=== PATIENT | male | born 1935 | race Caucasian/White ===

== ENCOUNTER 2021-12-13 19:21 | Inpatient (IN) | payer MEDICARE, OTHER ==
[~2021-12-13] VITALS: Ht 180 cm; Wt 105.5 kg
--- NOTE | 2021-12-13 19:41 | ED Syncope ---
General Chief Complaint: Dizziness/Syncope Stated Complaint: SYNCOPE History of Present Illness Date Seen by Provider: Dec 13, 2021 Time Seen by Provider: 19:20 Initial Comments Patient to ER by EMS from [place] where he had a witnessed syncopal episode. [place] a little dizzy right before. Has had a little bit of chills for the past few days off and on but no cough shortness of air or increasing, new pain. 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 He is no longer in therapy. He is followed by [facility] for primary care. He is supposed to be seeing a new oncologist on Thursday, 3 days from now. He has had 3 shots of vaccine for COVID-19. Witnesses say he was out for about 7 to 8 minutes. No chest pain. EKG unremarkable. Blood sugar 120s per EMS. No history of use of supplemental oxygen, smoking or COPD. No cough. He had some nausea and emesis so he received 4 mg Zofran IV by EMS on route. Patient wishes to be a full code at this time. Allergies and Home Medications Allergies Coded Allergies: Vwptyay-IIC-LrI Reductase Inhibitor (Verified Allergy, Unknown, 12/13/21) Patient Home Medication List Home Medication List Reviewed: Yes Review of Systems Constitutional: see HPI; No chills, No diaphoresis; dizziness; No fever, No malaise EENTM: No ear discharge, No ear pain Respiratory: No cough, No short of breath, No wheezing Cardiovascular: No chest pain, No palpitations Gastrointestinal: No abdominal pain; nausea; No vomiting Genitourinary: No discharge, No dysuria Musculoskeletal: No back pain, No joint pain All Other Systems Reviewed Negative Unless Noted: Yes Past Jifkixs-Egvynb-Abhiyx Hx Patient Social History Tobacco Use?: No Use of E-Cig and/or Vaping dev: No Substance use?: No Alcohol Use?: No Pt feels they are or have been: No Immunizations Up To Date First/Initial COVID19 Vaccinat: 2020 Second COVID19 Vaccination Alvarez: 2020 Past Medical History Surgery/Hospitalization HX: [place], PROSTATE CANCER, DM , STENT Physical Exam Vital Signs Vital Signs - First Documented 12/13/21 19:21 Temp 39.6 Pulse 83 Resp 24 B/P (MAP) 126/62 (83) Pulse Ox 92 O2 Delivery Nasal Cannula O2 Flow Rate 2.00 Capillary Refill : Height, Weight, BMI Height: '" Weight: lbs. oz. kg; BMI Method: General Appearance: No WD/WN (Chronically ill); Moderate Distress HEENT: PERRL/EOMI, TMs Normal, Normal ENT Inspection; No Pharynx Normal (Dry oral mucosa without erythema or exudate), No Moist Mucous Membranes Neck: Full Range of Motion, Normal Inspection Cardiovascular: Regular Rate, Rhythm, No Edema, Normal Peripheral Pulses Respiratory: Lungs Clear, Normal Breath Sounds, No Accessory Muscle Use; No Crackles; Respiratory Distress (Oxygen saturation 82% on room air, 20 breaths/min.); No Wheezing Gastrointestinal: Normal Bowel Sounds, No Organomegaly, Non Tender, Soft Neurologic/Psychiatric: Alert, Oriented x3, No Motor/Sensory Deficits, Normal Mood/Affect, joint sealer II-XII Norm as Tested Cranial Nerves: Normal Hearing, Normal Speech, Other (Mildly slowed speech on arrival) Skin: Normal Color, Warm/Dry Focused Exam Lactate Level 12/13/21 19:38: Lactic Acid Level 1.42 Lactic Acid Level Laboratory Tests Test 12/13/21 19:38 Lactic Acid Level 1.42 MMOL/L (0.50-2.00) Progress/Results/Core Measures Results/Orders Lab Results Laboratory Tests Test 12/13/21 19:25 12/13/21 19:31 12/13/21 19:38 Range/Units White Blood Count 8.5 4.3-11.0 10^3/uL Red Blood Count 3.41 L 4.30-5.52 10^6/uL Hemoglobin 9.6 L 13.3-17.7 g/dL Hematocrit 29 L 40-54 % Mean Corpuscular Volume 85 80-99 fL Mean Corpuscular Hemoglobin 28 25-34 pg Mean Corpuscular Hemoglobin Concent 33 32-36 g/dL Red Cell Distribution Width 15.0 H 10.0-14.5 % Platelet Count 351 130-400 10^3/uL Mean Platelet Volume 9.5 9.0-12.2 fL Immature Granulocyte % (Auto) 0 % Neutrophils (%) (Auto) 48 42-75 % Lymphocytes (%) (Auto) 43 12-44 % Monocytes (%) (Auto) 7 0-12 % Eosinophils (%) (Auto) 2 0-10 % Basophils (%) (Auto) 0 0-10 % Neutrophils # (Auto) 4.1 1.8-7.8 10^3/uL Lymphocytes # (Auto) 3.6 1.0-4.0 10^3/uL Monocytes # (Auto) 0.6 0.0-1.0 10^3/uL Eosinophils # (Auto) 0.1 0.0-0.3 10^3/uL Basophils # (Auto) 0.0 0.0-0.1 10^3/uL Immature Granulocyte # (Auto) 0.0 0.0-0.1 10^3/uL Prothrombin Time 15.2 H 12.2-14.7 SEC INR Comment 1.2 0.8-1.4 Activated Partial Thromboplast Time 32 24-35 SEC D-Dimer 4.63 H 0.00-0.49 UG/ML Sodium Level 130 L 135-145 MMOL/L Potassium Level 4.6 3.6-5.0 MMOL/L Chloride Level 96 L 98-107 MMOL/L Carbon Dioxide Level 23 21-32 MMOL/L Anion Gap 11 5-14 MMOL/L Blood Urea Nitrogen 11 7-18 MG/DL Creatinine 1.06 0.60-1.30 MG/DL Estimat Glomerular Filtration Rate 69 BUN/Creatinine Ratio 10 Glucose Level 177 H 70-105 MG/DL Calcium Level 10.2 H 8.5-10.1 MG/DL Corrected Calcium 10.5 H 8.5-10.1 MG/DL Total Bilirubin 0.4 0.1-1.0 MG/DL Aspartate Amino Transf (AST/SGOT) 18 5-34 U/L Alanine Aminotransferase (ALT/SGPT) 11 0-55 U/L Alkaline Phosphatase 51 40-136 U/L Troponin I < 0.028 <0.028 NG/ML B-Type Natriuretic Peptide 91.5 <100.0 PG/ML Total Protein 6.8 6.4-8.2 GM/DL Albumin 3.6 3.2-4.5 GM/DL Procalcitonin 0.09 <0.10 NG/ML Influenza Type A (RT-PCR) Not Detected Not Detecte Influenza Type B (RT-PCR) Not Detected Not Detecte SARS-CoV-2 RNA (RT-PCR) Not Detected Not Detecte Blood Gas Puncture Site LEFT RADIAL Blood Gas Patient Temperature 39.2 Arterial Blood pH 7.36 L 7.37-7.43 Arterial Blood Partial Pressure CO2 48 H 35-45 MMHG Arterial Blood Partial Pressure O2 80 79-93 MMHG Arterial Blood HCO3 25 23-27 MMOL/L Arterial Blood Total CO2 26.5 21.0-31.0 MMOL/L Arterial Blood Oxygen Saturation 94 94-100 % Arterial Blood Base Excess 0.9 -2.5-2.5 MMOL/L Jabier Test YES-POS Blood Gas Ventilator Setting NO Blood Gas Inspired Oxygen 4 L Lactic Acid Level 1.42 0.50-2.00 MMOL/L My Orders Orders - ALIYA CISNEROS Cbc With Automated Diff (12/13/21:33) Comprehensive Metabolic Panel (12/13/21:) Blood Culture (12/13/21:) Sputum Culture (12/13/21:) Urinalysis (12/13/21:) Urine Culture (12/13/21:) Protime With Inr (12/13/21:) Partial Thromboplastin Time (12/13/21:) Chest 1 View, Ap/Pa Only (12/13/21:33) Acetaminophen Tablet (Tylenol Tablet) (12/13/21 19:45) Ed Iv/Invasive Line Start (12/13/21:33) Ed Iv/Invasive Line Start (12/13/21:33) Ekg Tracing (12/13/21:33) Troponin I Traverse (12/13/21:33) Vital Signs Adult Sepsis Patie Q15M (12/13/21:33) O2 (12/13/21:33) Remove Rings In Anticipation O (12/13/21:33) Lactic Acid Analyzer (12/13/21:33) Influenza A And B By Pcr (12/13/21:33) Ns Iv 1000 Ml (Sodium Chloride 0.9%) (12/13/21 19:45) Cefepime Injection (Maxipime Injection) (12/13/21 19:45) Vancomycin Injection (Vancomycin Injecti (12/13/21 19:45) Covid 19 Inhouse Test (12/13/21 19:33) Ed Iv/Invasive Line Start (12/13/21:33) Ns Iv 1000 Ml (Sodium Chloride 0.9%) (12/13/21 19:45) Bnp Kin (12/13/21 19:33) Fibrin Degradation Products (12/13/21 19:33) Procalcitonin (Pct) (12/13/21 19:33) Arterial Blood Gas (12/13/21 19:33) Ct Head/Cervical Spine Wo (12/13/21 19:41) Ct Angio Chest W (12/13/21 20:47) Medications Given in ED Current Medications Medications Dose Ordered Sig/Zuleima Route Start Time Stop Time Status Last Admin Dose Admin Acetaminophen 1,000 mg ONCE PRN PO 12/13/21 19:45 12/13/21 19:52 DC 12/13/21 19:49 1,000 MG Cefepime HCl 1000 mg/Sodium Chloride 50 ml @ 100 mls/hr ONCE ONCE IV 12/13/21 19:45 12/13/21 20:14 DC 12/13/21 20:12 100 MLS/HR Vital Signs/I&O 12/13/21 12/13/21 19:21 20:59 Temp 39.6 39.6 Pulse 83 86 Resp 24 20 B/P (MAP) 126/62 (83) 130/72 Pulse Ox 92 92 O2 Delivery Nasal Cannula Nasal Cannula O2 Flow Rate 2.00 2.00 2.00 Progress Progress Note : Time: 19:39 Progress Note Tylenol for his fever. Septic work-up including 2 L by IV for greater than 20 mL/kg by adjusted ideal body weight. We will put him on 4 L by nasal cannula which brought him up to the mid 90s. Lungs sound clear. We will consider pulmonary embolisms, pneumonia, UTI given the history of prostatic cancer. He denies any urinary symptoms right now. Broad-spectrum antibiotics cefepime and vancomycin and will get a COVID and flu swab as it is not immediately apparent the source of infection. We will get a BNP, troponin, EKG to work-up his syncopal episode which is likely related to his illness/infection. ABG. Initial ECG Impression Date: Dec 13, 2021 Initial ECG Impression Time: 19:41 Initial ECG Rate: 86 Initial ECG Rhythm: Normal Sinus Initial ECG Intervals: Normal Initial ECG Impression: Normal Comment Normal sinus rhythm without clinically relevant ST changes. Diagnostic Imaging Diagonstic Imaging: Xray Plain Films/CT/US/NM/MRI: chest Comments [facility], [facility]. [place], [place] NAME: FAMILIA GUEVARA [facility] REC#: [id number] PT STATUS: REG ER : 1935 PHYSICIAN: ALIYA CISNEROS MD ADMIT DATE: 12/13/21/ER Signed Date of Exam:12/13/21 CHEST 1 VIEW, AP/PA ONLY EXAMINATION: Chest 1 view. HISTORY: Shortness of breath. Syncopal episode. COMPARISON: None available. FINDINGS: Volume loss is seen in the left hemithorax. Possible subpulmonic effusion is seen on the left with left basilar opacities. No pneumothorax. The cardiac silhouette is unremarkable. No acute osseous abnormalities. IMPRESSION: Volume loss in the left hemithorax with possible left subpulmonic effusion. Left basilar opacities are visualized. Dictated by: Dictated on workstation # [id number] Dict: 12/13/212031 Trans: 12/13/212036 [facility] [id number] Interpreted by: HUBERT STINSON DO Electronically signed by: HUBERT STINSON DO 12/13/212036 Reviewed: Reviewed by Or Diagonstic Imaging: CT Plain Films/CT/US/NM/MRI: chest Comments [facility], [place], [place] NAME: FAMILIA GUEVARA [facility] REC#: [id number] PT STATUS: REG ER : 1935 PHYSICIAN: ALIYA CISNEROS MD ADMIT DATE: 12/13/21/ER Draft Date of Exam:12/13/21 CT ANGIO CHEST W PROCEDURE: CT angiography of the chest with contrast. TECHNIQUE: Multiple contiguous axial images were obtained through the chest after uneventful bolus administration of intravenous contrast. 3D reconstructed CTA MIP acquisitions were also performed. Auto Exposure Controls were utilized during the CT exam to meet ALARA standards for radiation dose reduction. INDICATION: Shortness of breath. Elevated D-dimer. COMPARISON: Chest radiograph performed earlier the same date. FINDINGS: This helical CT pulmonary angiogram is diagnostic to the segmental level branches of the pulmonary artery and demonstrates no pulmonary emboli. The heart and great vessels are unremarkable. There is no pericardial effusion. There is no axillary, mediastinal or hilar adenopathy. Patchy and consolidative opacities are seen in the left lung base with a small amount of dependent opacities in the right lung base. No pulmonary mass. No central endobronchial obstructing lesions. No pleural effusion or pneumothorax. Scattered sclerotic lesions are seen throughout the thoracic spine and ribs. No acute fracture is seen. Limited views of the upper abdomen are unremarkable. IMPRESSION: 1. No acute pulmonary embolus. 2. Patchy and consolidative opacities in the left lung base with a small amount of dependent opacities in the right lung base. Findings may represent a combination of infection and atelectasis. 3. Diffuse sclerotic lesions throughout the thoracic spine and ribs. Findings can be seen with metastatic prostate cancer. Recommend correlation with patient history. Dictated on workstation # [id number] Dict: 12/13/212220 Trans: 12/13/212225 [facility] [id number] Interpreted by: HUBERT STINSON DO Electronically signed by: Reviewed: Reviewed by Or Diagonstic Imaging: CT Plain Films/CT/US/NM/MRI: c-spine, head Comments [facility] [place] [place] NAME: FAMILIA GUEVARA [facility] REC#: [id number] PT STATUS: REG ER : 1935 PHYSICIAN: ALIYA CISNEROS MD ADMIT DATE: 12/13/21/ER Signed Date of Exam:12/13/21 CT HEAD/CERVICAL SPINE WO PROCEDURE: CT head and CT cervical spine without contrast. TECHNIQUE: Multiple contiguous axial images were obtained through the brain and cervical spine without the use of intravenous contrast. Sagittal and coronal reformations through the cervical spine were then performed. Auto Exposure Controls were utilized during the CT exam to meet ALARA standards for radiation dose reduction. INDICATION: Syncopal episode. Weakness. Head and neck pain. COMPARISON: None. FINDINGS: CT HEAD: No large acute territorial ischemia, mass, or hemorrhage. No midline shift or mass effect. The ventricles, cortical sulci and basilar cisterns are patent and unremarkable. The calvarium is intact. The visualized paranasal sinuses are clear. CT CERVICAL SPINE: No acute fracture or dislocation is seen in the cervical spine. Diffuse sclerosis is seen throughout the cervical spine. There is suggestion of a focal osseous lesion at the anterior aspect of the T7 level. The craniocervical junction is well maintained. Moderate to severe degenerative changes are seen in the cervical spine with disc osteophyte complexes and uncovertebral arthropathy. Soft tissues of the neck are unremarkable. IMPRESSION: 1. No hemorrhage or focal intra-axial mass. No CT evidence of large acute territorial ischemia. 2. No acute fracture or dislocation in the cervical spine. 3. Diffuse sclerotic appearance of the cervical spine with possible focal osseous lesion at the C7 level. Recommend correlation with patient history and, if indicated, MRI of the cervical spine with and without contrast to further evaluate. Dictated by: Dictated on workstation # [id number] Dict: 12/13/212037 Trans: 12/13/212053 [facility] [id number] Interpreted by: HUBERT STINSON DO Electronically signed by: HUBERT STINSON DO 12/13/212053 Reviewed: Reviewed by Me Departure Communication (Admissions) Time/Spoke to Admitting Phy: 22:19 Discussed the case with Dr. Fajardo agrees with placement on the floor on telemetry. Impression Primary Impression: Syncope Qualified Codes: R55 - Syncope and collapse Additional Impressions: Pneumonia Qualified Codes: J18.9 - Pneumonia, unspecified organism Acute respiratory failure with hypoxemia Disposition: ADMITTED INPATIENT Condition: Stable Admissions Decision to Admit Reason: Admit from ER (General) Decision to Admit/Date: Dec 13, 2021 Time/Decision to Admit Time: 22:09 ALIYA CISNEROS Dec 13, 2021 19:41
[2021-12-13 19:42] LABS: ABG BASE EXCESS 0.9 MMOL/L (-2.5-2.5); ABG OXYGEN SATURATION 94 % (94-100); ABG PCO2 48 MMHG (35-45); ABG PH 7.36 (7.37-7.43); ABG PO2 80 MMHG (79-93); ABG TCO2 26.5 MMOL/L (21.0-31.0)
[2021-12-13 19:43] LABS: ALLENS TEST YES-POS; INSPIRED O2 4 L; VENTILATOR NO
[2021-12-13 19:44] LABS: PATIENT TEMP 39.2
[2021-12-13 19:44] LABS: BASOPHILS % (AUTO) 0 % (0-10); EOSINOPHILS # (AUTO) 0.1 10^3/uL (0.0-0.3); EOSINOPHILS % (AUTO) 2 % (0-10); HEMATOCRIT 29 % (40-54); HEMOGLOBIN 9.6 g/dL (13.3-17.7); LYMPHOCYTES # (AUTO) 3.6 10^3/uL (1.0-4.0); LYMPHOCYTES % (AUTO) 43 % (12-44); MEAN CORPUSCULAR HEMOGLOBIN 28 pg (25-34); MEAN CORPUSCULAR HGB CONC 33 g/dL (32-36); MEAN CORPUSCULAR VOLUME 85 fL (80-99); MEAN PLATELET VOLUME 9.5 fL (9.0-12.2); MONOCYTES # (AUTO) 0.6 10^3/uL (0.0-1.0); MONOCYTES % (AUTO) 7 % (0-12); NEUTROPHILS # (AUTO) 4.1 10^3/uL (1.8-7.8); NEUTROPHILS % (AUTO) 48 % (42-75); PLATELET COUNT 351 10^3/uL (130-400); WHITE BLOOD COUNT 8.5 10^3/uL (4.3-11.0)
[2021-12-13] MEDS ORDERED: ACETAMINOPHEN 500 MG TAB (TYLENOL) PO PRN (19:45)
[2021-12-13] MEDS ORDERED: NS IV 1000 ML 1,000 ML IV SCH ×2 (19:45)
[2021-12-13] MEDS ORDERED: CEFEPIME INJECTION 1,000 MG in NS (IVPB) 50 ML IV ONE (19:45)
[2021-12-13] MEDS: VANCOMYCIN INJECTION 1,000 MG in NS (IVPB) 250 ML IV SCH ×2 (19:52→22:20)
[2021-12-13 19:56] LABS: ALANINE AMINOTRANSFERASE 11 U/L (0-55); ALBUMIN 3.6 GM/DL (3.2-4.5); ALKALINE PHOSPHATASE 51 U/L (40-136); BILIRUBIN,TOTAL 0.4 MG/DL (0.1-1.0); BUN/CREATININE RATIO 10; CALCIUM 10.2 MG/DL (8.5-10.1); CARBON DIOXIDE 23 MMOL/L (21-32); CHLORIDE 96 MMOL/L (98-107); CREATININE SERUM 1.06 MG/DL (0.60-1.30); GFR ESTIMATED 69; GLUCOSE 177 MG/DL (70-105); POTASSIUM 4.6 MMOL/L (3.6-5.0); SODIUM 130 MMOL/L (135-145); TOTAL PROTEIN 6.8 GM/DL (6.4-8.2)
--- NOTE | 2021-12-13 20:36 | Diagnostic Imaging Report ---
EXAMINATION: Chest 1 view. HISTORY: Shortness of breath. Syncopal episode. COMPARISON: None available. FINDINGS: Volume loss is seen in the left hemithorax. Possible subpulmonic effusion is seen on the left with left basilar opacities. No pneumothorax. The cardiac silhouette is unremarkable. No acute osseous abnormalities. IMPRESSION: Volume loss in the left hemithorax with possible left subpulmonic effusion. Left basilar opacities are visualized. Dictated by: Dictated on workstation # [id number]
[2021-12-13 20:43] LABS: FIBRIN DEGRADATION PRODUCTS 4.63 UG/ML (0.00-0.49); INR 1.2 (0.8-1.4); PROTHROMBIN TIME PATIENT 15.2 SEC (12.2-14.7)
--- NOTE | 2021-12-13 20:48 | Diagnostic Imaging Report ---
PROCEDURE: CT head and CT cervical spine without contrast. TECHNIQUE: Multiple contiguous axial images were obtained through the brain and cervical spine without the use of intravenous contrast. Sagittal and coronal reformations through the cervical spine were then performed. Auto Exposure Controls were utilized during the CT exam to meet ALARA standards for radiation dose reduction. INDICATION: Syncopal episode. Weakness. Head and neck pain. COMPARISON: None. FINDINGS: CT HEAD: No large acute territorial ischemia, mass, or hemorrhage. No midline shift or mass effect. The ventricles, cortical sulci and basilar cisterns are patent and unremarkable. The calvarium is intact. The visualized paranasal sinuses are clear. CT CERVICAL SPINE: No acute fracture or dislocation is seen in the cervical spine. Diffuse sclerosis is seen throughout the cervical spine. There is suggestion of a focal osseous lesion at the anterior aspect of the T7 level. The craniocervical junction is well maintained. Moderate to severe degenerative changes are seen in the cervical spine with disc osteophyte complexes and uncovertebral arthropathy. Soft tissues of the neck are unremarkable. IMPRESSION: 1. No hemorrhage or focal intra-axial mass. No CT evidence of large acute territorial ischemia. 2. No acute fracture or dislocation in the cervical spine. 3. Diffuse sclerotic appearance of the cervical spine with possible focal osseous lesion at the C7 level. Recommend correlation with patient history and, if indicated, MRI of the cervical spine with and without contrast to further evaluate. Dictated by: Dictated on workstation # [id number]
[2021-12-13] MEDS ORDERED: HOLD METFORMIN - RECEIVED CONTRAST 20 ML VIAL IV SCH (22:00)
[2021-12-13] MEDS ORDERED: IOHEXOL 350 MG/ML 100 ML (OMNIPAQUE 350) VIAL IV ONE (22:00)
[2021-12-13] MEDS ORDERED: NS 100 ML (IVPB) BAG IV ONE (22:00)
--- NOTE | 2021-12-13 22:26 | Diagnostic Imaging Report ---
PROCEDURE: CT angiography of the chest with contrast. TECHNIQUE: Multiple contiguous axial images were obtained through the chest after uneventful bolus administration of intravenous contrast. 3D reconstructed CTA MIP acquisitions were also performed. Auto Exposure Controls were utilized during the CT exam to meet ALARA standards for radiation dose reduction. INDICATION: Shortness of breath. Elevated D-dimer. COMPARISON: Chest radiograph performed earlier the same date. FINDINGS: This helical CT pulmonary angiogram is diagnostic to the segmental level branches of the pulmonary artery and demonstrates no pulmonary emboli. The heart and great vessels are unremarkable. There is no pericardial effusion. There is no axillary, mediastinal or hilar adenopathy. Patchy and consolidative opacities are seen in the left lung base with a small amount of dependent opacities in the right lung base. No pulmonary mass. No central endobronchial obstructing lesions. No pleural effusion or pneumothorax. Scattered sclerotic lesions are seen throughout the thoracic spine and ribs. No acute fracture is seen. Limited views of the upper abdomen are unremarkable. IMPRESSION: 1. No acute pulmonary embolus. 2. Patchy and consolidative opacities in the left lung base with a small amount of dependent opacities in the right lung base. Findings may represent a combination of infection and atelectasis. 3. Diffuse sclerotic lesions throughout the thoracic spine and ribs. Findings can be seen with metastatic prostate cancer. Recommend correlation with patient history. Dictated by: Dictated on workstation # [id number]
[2021-12-13 22:55] LABS: BILIRUBIN,URINE NEGATIVE (NEGATIVE); CLARITY,URINE CLEAR; COLOR,URINE YELLOW; GLUCOSE, URINE (UA) NEGATIVE (NEGATIVE); KETONES,URINE NEGATIVE (NEGATIVE); LEUKOCYTE ESTERASE ,URINE NEGATIVE (NEGATIVE); NITRITE,URINE NEGATIVE (NEGATIVE); PROTEIN,URINE NEGATIVE (NEGATIVE)
[2021-12-13 23:04] LABS: BACTERIA,URINE NEGATIVE /HPF; WBC,URINE 0-2 /HPF
[2021-12-13 23:20] VITALS: BP 137/73
[2021-12-13] MEDS ORDERED: LACTATED RINGERS 1,000 ML IV ONE (23:30)
[2021-12-13] MEDS: LACTATED RINGERS 1,000 ML IV SCH (23:45)
[2021-12-14] VITALS (7 sets, daily range): BP systolic 104–138; BP diastolic 59–70
[2021-12-14] MEDS ORDERED: ACETAMINOPHEN 650 MG SUPP (TYLENOL) PR PRN (00:30)
[2021-12-14] MEDS ORDERED: ONDANSETRON 4 MG/2 ML (SDV) Z0FRAN IV PRN (00:30)
[2021-12-14] MEDS: cefTRIAXone 1 GM/50 ML (PRE-MIX) IV SCH ×2 (00:41→23:51)
[2021-12-14] MEDS: AZITHROMYCIN 500 MG/NS 250 ML IVPB IV SCH ×2 (01:42)
[2021-12-14 05:46] LABS: BASOPHILS % (AUTO) 0 % (0-10); EOSINOPHILS # (AUTO) 0.1 10^3/uL (0.0-0.3); EOSINOPHILS % (AUTO) 1 % (0-10); HEMATOCRIT 27 % (40-54); HEMOGLOBIN 8.5 g/dL (13.3-17.7); LYMPHOCYTES # (AUTO) 2.1 10^3/uL (1.0-4.0); LYMPHOCYTES % (AUTO) 38 % (12-44); MEAN CORPUSCULAR HEMOGLOBIN 28 pg (25-34); MEAN CORPUSCULAR HGB CONC 32 g/dL (32-36); MEAN CORPUSCULAR VOLUME 88 fL (80-99); MEAN PLATELET VOLUME 9.3 fL (9.0-12.2); MONOCYTES # (AUTO) 0.6 10^3/uL (0.0-1.0); MONOCYTES % (AUTO) 11 % (0-12); NEUTROPHILS # (AUTO) 2.7 10^3/uL (1.8-7.8); NEUTROPHILS % (AUTO) 50 % (42-75); PLATELET COUNT 250 10^3/uL (130-400); WHITE BLOOD COUNT 5.5 10^3/uL (4.3-11.0)
[2021-12-14 06:03] LABS: CALCIUM 9.1 MG/DL (8.5-10.1); CREATININE SERUM 0.85 MG/DL (0.60-1.30); POTASSIUM 4.5 MMOL/L (3.6-5.0)
[2021-12-14] MEDS: LACTATED RINGERS 1,000 ML IV SCH ×2 (07:27→09:09)
--- NOTE | 2021-12-14 07:55 | Diagnostic Imaging Report ---
INDICATION: Pneumonia. Comparison is made with prior examination of 12/13/2021. FINDINGS: There is cardiomegaly. There is some left basilar atelectasis and/or pneumonitis and small left pleural effusion. Right lung is clear. There is no pneumothorax. The mediastinum is unremarkable. IMPRESSION: Left basilar atelectasis and/or pneumonitis and small left pleural effusion. Dictated by: Dictated on workstation # [id number]
[2021-12-14] MEDS ORDERED: MESA1.2T3 PO (08:51)
[2021-12-14 08:56] LABS: ABG BASE EXCESS -0.5 MMOL/L (-2.5-2.5); ABG OXYGEN SATURATION 97 % (94-100); ABG PCO2 43 MMHG (35-45); ABG PH 7.36 (7.37-7.43); ABG PO2 82 MMHG (79-93); ABG TCO2 25.7 MMOL/L (21.0-31.0)
[2021-12-14 08:57] LABS: ALLENS TEST YES-POS; PATIENT TEMP 36.2; VENTILATOR NO
[2021-12-14 09:00] LABS: INSPIRED O2 4 L
[2021-12-14] MEDS ORDERED: CULTURELLE (09:04)
[2021-12-14] MEDS ORDERED: TMSL.4C PO (09:05)
[2021-12-14] MEDS ORDERED: METH1TAB59 PO (09:08)
[2021-12-14] MEDS ORDERED: ATEN25TA PO (09:12)
[2021-12-14] MEDS ORDERED: MULT-1136 PO (09:13)
[2021-12-14] MEDS ORDERED: UBID100C17 PO (09:14)
[2021-12-14] MEDS ORDERED: OMEG100032 PO (09:15)
[2021-12-14] MEDS ORDERED: ASPI-1238 PO (09:16)
[2021-12-14] MEDS ORDERED: APAL60TA PO (09:17)
[2021-12-14] MEDS ORDERED: INSU100V37 SQ (09:17)
[2021-12-14] MEDS ORDERED: SLF500T PO (09:18)
[2021-12-14] MEDS ORDERED: citracal PO (09:20)
--- NOTE | 2021-12-14 11:32 | Physical Therapy Evaluation ---
PT Evaluation-General Medical Diagnosis Admission Date Dec 13, 2021 at 21:30 Medical Diagnosis: pneumonia/acute respiratory failure with hypoxia Onset Date: Dec 13, 2021 Therapy Diagnosis Therapy Diagnosis: generalized weakness/debility Precautions Precautions/Isolations: Standard Precautions Referral Physician: Tana Reason for Referral: Evaluation/Treatment Medical History Pertinent Medical History: DM, [place], Prostate CA History of Falls (past yr): Yes Prior Surgery (last 100 days): No Current History EMS from a football game secondary to syncopal episode Reviewed History: Yes Social History Home: Single Level Current Living Status: Spouse Entry Into Home: Stairs With Railing PT Steps Into Home: 4 Prior Prior Level of Function SCALE: Activities may be completed with or without assistive devices. 9-Ibhadljmde-ritpdlm completes the activity by him/herself with no assistance from a helper. 5-Set-up or Clean-up Assistance-helper sets up or cleans up; patient completes activity. [place] assists only prior to or following the activity. 4-Supervision or Touching Assistance-helper provides verbal cues and/or touching/steadying and/or contact guard assistance as patient completes activity. Assistance may be provided throughout the activity or intermittently. 3-Partial/Moderate Assistance-helper does LESS THAN HALF the effort. [place] lifts, holds or supports trunk or limbs, but provides less than half the effort. 2-Substantial/Maximal Assistance-helper does MORE THAN HALF the effort. [place] lifts or holds trunk or limbs and provides more than half the effort. 0-Hrohazgco-agnbpb does ALL the effort. Patient does none of the effort to complete the activity. Or, the assistance of 2 or more helpers is required for the patient to complete the activity. If activity was not attempted, code reason: 7-Patient Refused. 9-Not Applicable-not attempted and the patient did not perform the activity before the current illness, exacerbation or injury. 10-Not Attempted due to Environmental Limitations-(lack of equipment, weather restraints, etc.). 88-Not Attempted due to Medical Conditions or Safety Concerns. Bed Mobility: 6 Transfers (B,C,W/C): 6 Gait: 6 Stairs: 6 Indoor Mobility (Ambulation): Independent Stairs: Independent Prior Devices Use: Walker PT Evaluation-Current Subjective Patient agrees to PT. Objective Patient Orientation: Normal For Age Attachments: Oxygen, IV ROM/Strength ROM Lower Extremities bilateral LE WFL Strength Lower Extremities 3+/5 grossly bilateral LE all planes Integumentary/Posture Bowel Incontinence: Yes Bladder Incontinence: Yes Posture slightly kyphotic Neuromuscular (Tone, Coordination, Reflexes) grossly intact Sensory Vision: Functional Hearing: Functional Transfers Lying to Sitting/Side of Bed(Q: 4 Sit to Stand (QC): 4 Chair/Qol-rx-Fxdpu Xfer(QC): 4 Toilet Transfer (QC): 4 Gait Mode of Locomotion: Walk Anticipated Mode of Locomotion: Walk Walk 10 feet (QC): 4 Walk 50 ft with 2 Turns(QC): 4 Distance: 50' Gait Assistive Device: FWW Comments/Gait Description steady gait sequence with slight deviation with self correct Balance Sitting Static: Normal Sitting Dynamic: Normal Standing Static: Fair Standing Dynamic: Fair Assessment/Needs 86 y.o. male, will benefit from skilled PT to address functional strength and mobility to improve current LOF to safely return to home with spouse at maximum LOF. Rehab Potential: Fair PT Usp Goals Usp Goals PT Cook Specialty Goals Time Frame: Dec 21, 2021 Roll Left & Right (QC): 6 Sit to Lying (QC): 6 Lying-Sitting on Side/Bed(QC): 6 Sit to Stand (QC): 6 Chair/Qyk-om-Lrnjx Xfer(QC): 6 Toilet Transfer (QC): 6 Walk 10 feet (QC): 6 Walk 50ft with 2 Turns (QC): 6 Walk 150 ft (QC): 6 1 Step (curb) (QC): 6 4 Steps (QC): 6 PT Plan Problem List Problem List: Activity Tolerance, Functional Strength, Safety, Balance, Gait, Transfer, Bed Mobility Treatment/Plan Treatment Plan: Continue Plan of Care Treatment Plan: Bed Mobility, Education, Functional Activity [place], Functional Strength, Gait, Safety, Therapeutic Exercise, Transfers Treatment Duration: Dec 21, 2021 Frequency: 6 times per week Estimated Hrs Per Day: .25 hour per day Patient and/or Family Agrees t: Yes Time/GCodes Time In: 1110 Time Out: 1124 Total Billed Treatment Time: 14 Total Billed Treatment 1 visit EVModC 14 min ENRICO BARRIOS PT Dec 14, 2021 11:32
--- NOTE | 2021-12-14 11:33 | History & Physical-Hospitalist ---
History of Present Illness HPI/Chief Complaint Patient is an 86-year-old male with past medical history of insulin- dependent diabetes type 2, metastatic prostate cancer, hypertension who presented to the emergency department due to syncope. He was at a local high school football game and suffered a syncopal episode. He states that he was slightly dizzy beforehand and then lost consciousness. He denies any nausea, tunnel vision, palpitations, seizure-like activity. Family reports he was down for roughly 7 minutes. He was brought to the emergency department via EMS. He was febrile on arrival and was found to have pneumonia. He was mildly hypoxic as well and is normally not on oxygen. He was admitted for IV antibiotics and further work-up of syncope. Date Seen 12/14/21 Time Seen by a Provider: 11:00 Attending Physician PCP Admitting Physician: Elin Fajardo MD Attending Physician: Elin Fajardo MD Referring Physician Date of Admission Dec 13, 2021 at 21:30 Home Medications & Allergies Home Medications Reviewed patient Home Medication Reconciliation performed by pharmacy medication reconciliations heavy equipment service technician and/or nursing. Patients Allergies have been reviewed. Allergies Allergies Coded Allergies Nfuweul-SYH-RpO Reductase Inhibitor (Verified Allergy, Unknown, 12/13/21) Past Hljdpbz-Psapog-Kayoyf Hx Patient Social History Tobacco Use?: No Use of E-Cig and/or Vaping dev: No Substance use?: No Alcohol Use?: No Pt feels they are or have been: No Immunizations Up To Date First/Initial COVID19 Vaccinat: 2020 Second COVID19 Vaccination Alvarez: 2020 Tetanus Booster (TDap): Unknown Current Status Advance Directives: No Communicates: Verbally Primary Language: Welsh Preferred Spoken Language: Welsh Is interpretation needed?: No Implanted or Applied Medical D: None Review of Systems Constitutional: No chills; fever EENTM: no symptoms reported Respiratory: see HPI, short of breath Cardiovascular: No chest pain; edema; No palpitations; syncope Gastrointestinal: no symptoms reported Genitourinary: no symptoms reported Musculoskeletal: muscle weakness Skin: no symptoms reported Psychiatric/Neurological: No Symptoms Reported Physical Exam Physical Exam Vital Signs Vital Signs - First Documented 12/13/21 19:21 Temp 39.6 Pulse 83 Resp 24 B/P (MAP) 126/62 (83) Pulse Ox 92 O2 Delivery Nasal Cannula O2 Flow Rate 2.00 Capillary Refill : Height, Weight, BMI Height: '" Weight: lbs. oz. kg; 32.56 BMI Method: General Appearance: No Apparent Distress, WD/WN, Chronically ill HEENT: PERRL/EOMI, Moist Mucous Membranes; No Scleral Icterus (L), No Scleral Icterus (R) Neck: Normal Inspection, Supple Respiratory: Lungs Clear, No Accessory Muscle Use, No Respiratory Distress Cardiovascular: Regular Rate, Rhythm, No Murmur Gastrointestinal: Normal Bowel Sounds, Non Tender, Soft Extremity: Normal Capillary Refill, No Calf Tenderness, Swelling (chronic edmea of lower extremities, mild, non pitting) Neurologic/Psychiatric: Alert, Oriented x3, Normal Mood/Affect Skin: Normal Color, Warm/Dry Results Results/Procedures Labs Laboratory Tests 12/13/21 19:25 12/14/21 05:36 12/15/21 05:27 Patient resulted labs reviewed. Imaging: Reviewed Imaging Report [facility] [place] [place] NAME: FAMILIA GUEVARA [facility] REC#: [id number] PT STATUS: REG ER : 1935 PHYSICIAN: ALIYA CISNEROS MD ADMIT DATE: 12/13/21/ER Signed Date of Exam:12/13/21 CHEST 1 VIEW, AP/PA ONLY EXAMINATION: Chest 1 view. HISTORY: Shortness of breath. Syncopal episode. COMPARISON: None available. FINDINGS: Volume loss is seen in the left hemithorax. Possible subpulmonic effusion is seen on the left with left basilar opacities. No pneumothorax. The cardiac silhouette is unremarkable. No acute osseous abnormalities. IMPRESSION: Volume loss in the left hemithorax with possible left subpulmonic effusion. Left basilar opacities are visualized. Dictated by: Dictated on workstation # [id number] Dict: 12/13/212031 Trans: 12/13/212036 [facility] [id number] Interpreted by: HUBERT STINSON DO Electronically signed by: HUBERT STINSON DO 12/13/212036 [facility] [place] [place] NAME: FAMILIA GUEVARA [facility] REC#: [id number] PT STATUS: REG ER : 1935 PHYSICIAN: ALIYA CISNEROS MD ADMIT DATE: 12/13/21/ER Signed Date of Exam:12/13/21 CT HEAD/CERVICAL SPINE WO PROCEDURE: CT head and CT cervical spine without contrast. TECHNIQUE: Multiple contiguous axial images were obtained through the brain and cervical spine without the use of intravenous contrast. Sagittal and coronal reformations through the cervical spine were then performed. Auto Exposure Controls were utilized during the CT exam to meet ALARA standards for radiation dose reduction. INDICATION: Syncopal episode. Weakness. Head and neck pain. COMPARISON: None. FINDINGS: CT HEAD: No large acute territorial ischemia, mass, or hemorrhage. No midline shift or mass effect. The ventricles, cortical sulci and basilar cisterns are patent and unremarkable. The calvarium is intact. The visualized paranasal sinuses are clear. CT CERVICAL SPINE: No acute fracture or dislocation is seen in the cervical spine. Diffuse sclerosis is seen throughout the cervical spine. There is suggestion of a focal osseous lesion at the anterior aspect of the T7 level. The craniocervical junction is well maintained. Moderate to severe degenerative changes are seen in the cervical spine with disc osteophyte complexes and uncovertebral arthropathy. Soft tissues of the neck are unremarkable. IMPRESSION: 1. No hemorrhage or focal intra-axial mass. No CT evidence of large acute territorial ischemia. 2. No acute fracture or dislocation in the cervical spine. 3. Diffuse sclerotic appearance of the cervical spine with possible focal osseous lesion at the C7 level. Recommend correlation with patient history and, if indicated, MRI of the cervical spine with and without contrast to further evaluate. Dictated by: Dictated on workstation # [id number] Dict: 12/13/212037 Trans: 12/13/212053 [facility] [id number] Interpreted by: HUBERT STINSON DO Electronically signed by: HUBERT STINSON DO 12/13/212053 [facility] [place], [place] NAME: FAMILIA GUEVARA [facility] REC#: [id number] PT STATUS: ADM IN : 1935 PHYSICIAN: ALIYA CISNEROS MD ADMIT DATE: 12/13/21 Signed Date of Exam:12/13/21 CT ANGIO CHEST W PROCEDURE: CT angiography of the chest with contrast. TECHNIQUE: Multiple contiguous axial images were obtained through the chest after uneventful bolus administration of intravenous contrast. 3D reconstructed CTA MIP acquisitions were also performed. Auto Exposure Controls were utilized during the CT exam to meet ALARA standards for radiation dose reduction. INDICATION: Shortness of breath. Elevated D-dimer. COMPARISON: Chest radiograph performed earlier the same date. FINDINGS: This helical CT pulmonary angiogram is diagnostic to the segmental level branches of the pulmonary artery and demonstrates no pulmonary emboli. The heart and great vessels are unremarkable. There is no pericardial effusion. There is no axillary, mediastinal or hilar adenopathy. Patchy and consolidative opacities are seen in the left lung base with a small amount of dependent opacities in the right lung base. No pulmonary mass. No central endobronchial obstructing lesions. No pleural effusion or pneumothorax. Scattered sclerotic lesions are seen throughout the thoracic spine and ribs. No acute fracture is seen. Limited views of the upper abdomen are unremarkable. IMPRESSION: 1. No acute pulmonary embolus. 2. Patchy and consolidative opacities in the left lung base with a small amount of dependent opacities in the right lung base. Findings may represent a combination of infection and atelectasis. 3. Diffuse sclerotic lesions throughout the thoracic spine and ribs. Findings can be seen with metastatic prostate cancer. Recommend correlation with patient history. Dictated by: Dictated on workstation # [id number] Dict: 12/13/212220 Trans: 12/13/212307 [facility] [id number] Interpreted by: HUBERT STINSON DO Electronically signed by: HUBERT STINSON DO 12/13/212307 Assessment/Plan Admission Diagnosis Sepsis due to pneumonia Admission Status: Inpatient Order (span 2 midnights) Reason for Inpatient Admission: see below Assessment and Plan Sepsis due to pneumonia Acute hypoxic respiratory failure Continue on IV abx Await cultures Wean oxygen as able MAt protocol Syncope New onset atrial fibrillation Called this AM and telemetry reveals a-fib Patient denies history of this Cardiology consulted, appreciate recs Likely cause of syncope Continue telemetry Metastatic prostate cancer Age related debility Frequent falls Follows with oncology Has appt with new oncologist on 12/16 IDDMII SSI Fasting blood sugar 97 so hold home insulin DVT ppx: ELIN Platt MD Dec 14, 2021 11:33
[2021-12-14 11:48] LABS: TRIGLYCERIDES 60 MG/DL (<150); VLDL CHOLESTEROL 12 MG/DL (5-40)
[2021-12-14 11:53] LABS: CHOLESTEROL 140 MG/DL (< 200)
[2021-12-14 11:54] LABS: HDL CHOLESTEROL 30 MG/DL (40-60); MAGNESIUM 1.5 MG/DL (1.6-2.4)
--- NOTE | 2021-12-14 11:54 | Consultation-Cardiology ---
HPI-Cardiology Cardiology Consultation: Date of Consultation 12/14/21 Date of Admission 12/13/21 Attending Physician Admitting Physician Admitting Physician: Saray Fajardo MD Attending Physician: Saray Fajardo MD Consulting Physician KEM FERNÁNDEZ JR, MD HPI: Time Seen by a Provider: 11:49 Chief Complaint: REASON FOR CONSULTATION: Atrial arrhythmia and syncope. I had the pleasure of seeing Arnol on the medical/surgical unit at [facility] in [place], [place] today. He has a history of coronary artery disease with myocardial infarction in 2002 treated with stents at [facility] in [place], [place] and hyperlipidemia. He also has metastatic prostate carcinoma which has been treated for about the past 6 years. Over the past few weeks he has had several falls at home. 1 time he was in his garden working and when he stood up, he lost his balance and fell down. Another day last week he was going from 1 room to another and there is a short step in between the rooms and he again lost his balance and fell down. Last evening he was at a local high school football game. He was on ground level because he cannot climb up into the bleachers using his walker. He had been sitting on his walker and stood up to stretch. The next thing he can remember, he was laying on the ground and there were bystanders standing above him. Someone had called 911 and the rescue squad came and brought him to the emergency room for further evaluation. He was diagn osed with pneumonia and started on intravenous antibiotics and admitted to the floor. Overnight, his telemetry showed some atrial arrhythmias concerning for atrial fibrillation and a cardiology consultation was requested. He denies any previous history of atrial fibrillation. He has been taking atenolol for a number of years even before his myocardial infarction. His previous doctor told him it was good to take atenolol to help protect someone from dying of a heart attack. He denies any history of hypertension. Up until yesterday's event, he denies any previous history of syncope. He does have chronic dyspnea which he believes has gotten worse since his diagnosis of prostate carcinoma. He has trouble sleeping at night but mainly due to bone pain. He denies paroxysmal nocturnal dyspnea, orthopnea, palpitations, or peripheral edema. Yesterday he did feel slightly feverish and had a slight cough. He also reports loss of appetite over the past few days to weeks. He has been vaccinated and boosted for COVID. Because of the atrial arrhythmia and syncope, a cardiology consultation was requested. Certain portions of this document may have been dictated utilizing voice recognition technology. Inherent to this technology, typographical and grammatical errors may exist. As much as I am diligent to identify and correct these mistakes, some errors may remain in the document. Review of Systems-Cardiology Review of Systems Other comments Review of 10 organ systems is as per the history of present illness, otherwise negative. All Other Systems Reviewed Negative Unless Noted: Yes PNG-Eihons-Itczyn Hx Patient Social History Marrital Status: Smoking Status: Never a Smoker Have you traveled recently?: No Alcohol Use?: No Pt feels they are or have been: No Past Medical History PMH As described under Assessment. Family Medical History Family Medical History: 2 of his brothers in their 50s of a myocardial infarction. Allergies and Home Medications Allergies Coded Allergies: Mwliubt-HCQ-TlY Reductase Inhibitor (Verified Allergy, Unknown, 12/13/21) Patient Home Medication List Home Medication List Reviewed: Yes Apalutamide (Erleada) 60 Mg Tablet, 240 MG PO DAILY, (Reported) Entered as Reported by: Evelyn Colon on 12/14/21916 Last Action: Reviewed Aspirin (Aspirin EC) 81 Mg Tablet., 81 MG PO HS, (Reported) Entered as Reported by: Evelyn Colon on 12/14/2116 Last Action: Reviewed Atenolol (Atenolol) 25 Mg Tablet, 25 MG PO DAILY, (Reported) Entered as Reported by: Evelyn Colon on 12/14/21911 Last Action: Reviewed Insulin Degludec (Tresiba) 100 Unit/Ml Vial, 28 UNIT SQ HS, (Reported) Entered as Reported by: Evelyn Colon on 12/14/21916 Last Action: Reviewed Mesalamine (Mesalamine) 1.2 Gram Tablet., 1.2 GM PO DAILY, (Reported) Entered as Reported by: Evelyn Colon on 12/14/21 0851 Last Action: Reviewed Methyl-B12/l-Mefolate/B6 Phos (Foltanx Tablet) 2 Mg-3 Mg-35 Mg Tablet, 1 TAB PO DAILY, (Reported) Entered as Reported by: Evelyn Colon on 12/14/21907 Last Action: Reviewed Multivitamin (Multivitamin) 1 Each Tablet, 1 EACH PO DAILY, (Reported) Entered as Reported by: Evelyn Colon on 12/14/21912 Last Action: Reviewed [place]-3/Dha/Epa/Fish Oil (Fish Oil 1,000 mg Softgel) 1,000 Mg (120 Mg-180 Mg) Capsule, 3,000 MG PO BID, (Reported) Entered as Reported by: Evelyn Colon on 12/14/21914 Last Action: Reviewed Sulfasalazine (Sulfasalazine) 500 Mg Tablet, 500 MG PO DAILY, (Reported) Entered as Reported by: Evelyn Colon on 12/14/21917 Last Action: Reviewed Tamsulosin HCl (Flomax) 0.4 Mg Cap, 0.4 MG PO HS, (Reported) Entered as Reported by: Evelyn Colon on 12/14/21904 Last Action: Reviewed Ubidecarenone (Coq-10) 100 Mg Capsule, 400 MG PO DAILY, (Reported) Entered as Reported by: Evelyn Colon on 12/14/21913 Last Action: Reviewed [citracal] , 1 PO BID, (Reported) Entered as Reported by: Evelyn Colon on 12/14/21919 Last Action: Reviewed [culturelle] , DAILY, (Reported) Entered as Reported by: Evelyn Colon on 12/14/21903 Last Action: Reviewed Exam Vital Signs Vital Signs Date Time Temp Pulse Resp B/P (MAP) Pulse Ox O2 Delivery O2 Flow Rate FiO2 12/14/21 08:00 Nasal Cannula 4.00 12/14/21 07:57 36.2 72 20 138/65 (89) 97 Physical Exam General: Alert. No acute distress. Well nourished and appears stated age. He is overweight. He is wearing oxygen by nasal cannula. Eye: Extraocular movements are intact. Conjunctivae are clear. There are no xant helasma. HENT: Normocephalic. Atraumatic. Carotid pulsations 2/2 without bruits. Neck: Jugular venous pressure does not appear elevated. No thyromegaly appreciated. Respiratory: Lungs are clear to auscultation but decreased at the bases bilaterally. Respirations are non-labored. Breath sounds are equal. Symmetrical chest wall expansion. Cardiovascular: Normal rate. Regular rhythm. Distant S1/S2. No murmur. No gallop. Point of maximal impulse is not appear displaced. Good pulses equal in all extremities. No edema. Gastrointestinal: Soft. Normal bowel sounds. Skin: Skin turgor is normal. There is no pallor. Musculoskeletal: No kyphosis or scoliosis appreciated. Neurologic: Alert and oriented to person, place, time. Cranial nerves 3-12 appear grossly intact. The patient has good motor tone strength in the upper and lower extremities bilaterally. Psychiatric: Cooperative. Appropriate mood & affect. Labs Laboratory Tests Test 12/13/21 19:25 12/13/21 19:31 12/13/21 19:38 12/13/21 22:45 Range/Units White Blood Count 8.5 4.3-11.0 10^3/uL Red Blood Count 3.41 L 4.30-5.52 10^6/uL Hemoglobin 9.6 L 13.3-17.7 g/dL Hematocrit 29 L 40-54 % Mean Corpuscular Volume 85 80-99 fL Mean Corpuscular Hemoglobin 28 25-34 pg Mean Corpuscular Hemoglobin Concent 33 32-36 g/dL Red Cell Distribution Width 15.0 H 10.0-14.5 % Platelet Count 351 130-400 10^3/uL Mean Platelet Volume 9.5 9.0-12.2 fL Immature Granulocyte % (Auto) 0 % Neutrophils (%) (Auto) 48 42-75 % Lymphocytes (%) (Auto) 43 12-44 % Monocytes (%) (Auto) 7 0-12 % Eosinophils (%) (Auto) 2 0-10 % Basophils (%) (Auto) 0 0-10 % Neutrophils # (Auto) 4.1 1.8-7.8 10^3/uL Lymphocytes # (Auto) 3.6 1.0-4.0 10^3/uL Monocytes # (Auto) 0.6 0.0-1.0 10^3/uL Eosinophils # (Auto) 0.1 0.0-0.3 10^3/uL Basophils # (Auto) 0.0 0.0-0.1 10^3/uL Immature Granulocyte # (Auto) 0.0 0.0-0.1 10^3/uL Prothrombin Time 15.2 H 12.2-14.7 SEC INR Comment 1.2 0.8-1.4 Activated Partial Thromboplast Time 32 24-35 SEC D-Dimer 4.63 H 0.00-0.49 UG/ML Sodium Level 130 L 135-145 MMOL/L Potassium Level 4.6 3.6-5.0 MMOL/L Chloride Level 96 L 98-107 MMOL/L Carbon Dioxide Level 23 21-32 MMOL/L Anion Gap 11 5-14 MMOL/L Blood Urea Nitrogen 11 7-18 MG/DL Creatinine 1.06 0.60-1.30 MG/DL Estimat Glomerular Filtration Rate 69 BUN/Creatinine Ratio 10 Glucose Level 177 H 70-105 MG/DL Calcium Level 10.2 H 8.5-10.1 MG/DL Corrected Calcium 10.5 H 8.5-10.1 MG/DL Total Bilirubin 0.4 0.1-1.0 MG/DL Aspartate Amino Transf (AST/SGOT) 18 5-34 U/L Alanine Aminotransferase (ALT/SGPT) 11 0-55 U/L Alkaline Phosphatase 51 40-136 U/L Troponin I < 0.028 <0.028 NG/ML B-Type Natriuretic Peptide 91.5 <100.0 PG/ML Total Protein 6.8 6.4-8.2 GM/DL Albumin 3.6 3.2-4.5 GM/DL Procalcitonin 0.09 <0.10 NG/ML Influenza Type A (RT-PCR) Not Detected Not Detecte Influenza Type B (RT-PCR) Not Detected Not Detecte SARS-CoV-2 RNA (RT-PCR) Not Detected Not Detecte Blood Gas Puncture Site LEFT RADIAL Blood Gas Patient Temperature 39.2 Arterial Blood pH 7.36 L 7.37-7.43 Arterial Blood Partial Pressure CO2 48 H 35-45 MMHG Arterial Blood Partial Pressure O2 80 79-93 MMHG Arterial Blood HCO3 25 23-27 MMOL/L Arterial Blood Total CO2 26.5 21.0-31.0 MMOL/L Arterial Blood Oxygen Saturation 94 94-100 % Arterial Blood Base Excess 0.9 -2.5-2.5 MMOL/L Jabier Test YES-POS Blood Gas Ventilator Setting NO Blood Gas Inspired Oxygen 4 L Lactic Acid Level 1.42 0.50-2.00 MMOL/L Urine Color YELLOW Urine Clarity CLEAR Urine pH 6.0 5-9 Urine Specific [place] <=1.005 1.016-1.022 Urine Protein NEGATIVE NEGATIVE Urine Glucose (UA) NEGATIVE NEGATIVE Urine Ketones NEGATIVE NEGATIVE Urine Nitrite NEGATIVE NEGATIVE Urine Bilirubin NEGATIVE NEGATIVE Urine Urobilinogen 0.2 < = 1.0 MG/DL Urine Leukocyte Esterase NEGATIVE NEGATIVE Urine RBC (Auto) NEGATIVE NEGATIVE Urine RBC NONE /HPF Urine WBC 0-2 /HPF Urine Squamous Epithelial Cells 2-5 /HPF Urine Crystals NONE /LPF Urine Bacteria NEGATIVE /HPF Urine Casts NONE /LPF Urine Mucus NEGATIVE /LPF Urine Culture Indicated CULTURE PENDING Test 12/14/21 05:36 12/14/21 08:50 Range/Units White Blood Count 5.5 4.3-11.0 10^3/uL Red Blood Count 3.02 L 4.30-5.52 10^6/uL Hemoglobin 8.5 L 13.3-17.7 g/dL Hematocrit 27 L 40-54 % Mean Corpuscular Volume 88 80-99 fL Mean Corpuscular Hemoglobin 28 25-34 pg Mean Corpuscular Hemoglobin Concent 32 32-36 g/dL Red Cell Distribution Width 15.0 H 10.0-14.5 % Platelet Count 250 130-400 10^3/uL Mean Platelet Volume 9.3 9.0-12.2 fL Immature Granulocyte % (Auto) 0 % Neutrophils (%) (Auto) 50 42-75 % Lymphocytes (%) (Auto) 38 12-44 % Monocytes (%) (Auto) 11 0-12 % Eosinophils (%) (Auto) 1 0-10 % Basophils (%) (Auto) 0 0-10 % Neutrophils # (Auto) 2.7 1.8-7.8 10^3/uL Lymphocytes # (Auto) 2.1 1.0-4.0 10^3/uL Monocytes # (Auto) 0.6 0.0-1.0 10^3/uL Eosinophils # (Auto) 0.1 0.0-0.3 10^3/uL Basophils # (Auto) 0.0 0.0-0.1 10^3/uL Immature Granulocyte # (Auto) 0.0 0.0-0.1 10^3/uL Sodium Level 132 L 135-145 MMOL/L Potassium Level 4.5 3.6-5.0 MMOL/L Chloride Level 101 98-107 MMOL/L Carbon Dioxide Level 23 21-32 MMOL/L Anion Gap 8 5-14 MMOL/L Blood Urea Nitrogen 10 7-18 MG/DL Creatinine 0.85 0.60-1.30 MG/DL Estimat Glomerular Filtration Rate 86 BUN/Creatinine Ratio 12 Glucose Level 97 70-105 MG/DL Calcium Level 9.1 8.5-10.1 MG/DL Blood Gas Puncture Site RIGHT RADIAL Blood Gas Patient Temperature 36.2 Arterial Blood pH 7.36 L 7.37-7.43 Arterial Blood Partial Pressure CO2 43 35-45 MMHG Arterial Blood Partial Pressure O2 82 79-93 MMHG Arterial Blood HCO3 24 23-27 MMOL/L Arterial Blood Total CO2 25.7 21.0-31.0 MMOL/L Arterial Blood Oxygen Saturation 97 94-100 % Arterial Blood Base Excess -0.5 -2.5-2.5 MMOL/L Jabier Test YES-POS Blood Gas Ventilator Setting NO Blood Gas Inspired Oxygen 4 L ECG Impression ECG Comment Electrocardiogram from this morning shows sinus rhythm with sinus arrhythmia and nonspecific ST changes. Diagnosis/Problems Diagnosis/Problems (1) Syncope Status: Acute Assessment & Plan: Yesterday it sounds as though he did in fact have a syncopal spell. There is no evidence of WPW, Brugada syndrome, or prolonged QT on his resting electrocardiogram. He has now been diagnosed with pneumonia and receiving intravenous antibiotics. He also reports poor oral intake over the past few days to weeks. I would question whether or not he may have had some significant orthostatic hypotension that led to the syncope. I recommend he continue on telemetry monitoring. I will hold his beta-jesica. Once he recovers from the pneumonia, I will consider an ischemic evaluation. If he is still here on Thursday, I will plan on an echocardiogram Thursday. This does not need to be done on the weekend. (2) Atrial arrhythmia Assessment & Plan: He appears to have sinus arrhythmia with interspersed premature ventricular complexes and supraventricular premature complexes. I do not see any definitive evidence of atrial fibrillation. I recommend he continue on telemetry for at least the next couple of days while he is in the hospital. I may consider outpatient monitoring following discharge. (3) Coronary artery disease without angina pectoris Assessment & Plan: He is not having any angina. He had a negative, undetectable troponin level. I restarted his aspirin. I will hold off on starting atenolol as outlined above. He states he is intolerant to statin medications. (4) Mixed hyperlipidemia Assessment & Plan: I have ordered a lipid panel to be added to his previous blood work. As above, he reports he is intolerant to statin medications. If his LDL is elevated, he may benefit from ezetimibe. (5) Acute respiratory failure with hypoxemia Status: Acute Assessment & Plan: I suspect this is due to the pneumonia identified on his chest CT. He has received almost 3 L of IV fluids. I asked the nurse to stop his IV fluids. Problem Qualifiers (1) Syncope: Syncope type: unspecified Qualified Codes: R55 - Syncope and collapse KEM FERNÁNDEZ JR, MD Dec 14, 2021 11:54
[2021-12-14] MEDS ORDERED: ASPIRIN E.C. 81 MG (ECOTRIN) TAB PO NR (12:00)
[2021-12-14] MEDS: ACETAMINOPHEN 325 MG TABLET PO PRN ×2 (13:02→18:33)
[2021-12-14] MEDS ORDERED: RT-ALBUTEROL SULF 2.5 MG/3 ML PRE-MIX VIAL INH PRN (14:30)
[2021-12-14] MEDS ORDERED: PATIENT MAY USE OWN MED,SINGLE MED PO SCH (14:45)
[2021-12-14] MEDS: inSUlin ASPART (NovoLOG) 1 UNIT/0.01 ML (CHARGE PER UNIT) SC SCH ×2 (15:47→20:51)
[2021-12-14] MEDS: IBUPROFEN 600 MG (MOTRIN) TAB PO PRN (15:56)
[2021-12-14] MEDS: TAMSULOSIN 0.4 MG (FLOMAX) CAP PO SCH (19:41)
[2021-12-15] MEDS: AZITHROMYCIN 500 MG/NS 250 ML IVPB IV SCH ×2 (00:56)
[2021-12-15] MEDS: ACETAMINOPHEN 325 MG TABLET PO PRN ×2 (00:57→12:48)
[2021-12-15 04:13] VITALS: BP 119/62
[2021-12-15] MEDS: inSUlin ASPART (NovoLOG) 1 UNIT/0.01 ML (CHARGE PER UNIT) SC SCH ×4 (05:17→21:33)
[2021-12-15 05:36] LABS: HEMATOCRIT 25 % (40-54); HEMOGLOBIN 8.1 g/dL (13.3-17.7); MEAN CORPUSCULAR HEMOGLOBIN 28 pg (25-34); MEAN CORPUSCULAR HGB CONC 32 g/dL (32-36); MEAN CORPUSCULAR VOLUME 88 fL (80-99); MEAN PLATELET VOLUME 9.5 fL (9.0-12.2); PLATELET COUNT 212 10^3/uL (130-400); WHITE BLOOD COUNT 5.6 10^3/uL (4.3-11.0)
[2021-12-15 05:53] LABS: CREATININE SERUM 0.81 MG/DL (0.60-1.30); POTASSIUM 4.3 MMOL/L (3.6-5.0)
[2021-12-15 07:24] VITALS: BP 156/71
[2021-12-15] MEDS: ATENOLOL 25 MG (TENORMIN) TAB PO SCH (08:28)
[2021-12-15] MEDS: ERLEADA 60 MG PO SCH (08:28)
[2021-12-15] MEDS: sulfaSALAzine 500 MG (AZULFIDINE) TAB PO SCH (08:28)
[2021-12-15] MEDS: IBUPROFEN 600 MG (MOTRIN) TAB PO PRN ×2 (08:37→17:33)
[2021-12-15] MEDS ORDERED: ASPIRIN E.C. 81 MG (ECOTRIN) TAB PO SCH (09:00)
[2021-12-15] MEDS ORDERED: MESALAMINE 1.2 GM PO SCH (09:00)
[2021-12-15] MEDS ORDERED: APALUTAMIDE 240 MG PO SCH (09:00)
--- NOTE | 2021-12-15 10:13 | Progress Note - Hospitalist ---
Subjective HPI/CC On Admission Date Seen by Provider: Dec 15, 2021 Patient is an 86-year-old male with past medical history of insulin- dependent diabetes type 2, metastatic prostate cancer, hypertension who presented to the emergency department due to syncope. He was at a local high school football game and suffered a syncopal episode. He states that he was slightly dizzy beforehand and then lost consciousness. He denies any nausea, tunnel vision, palpitations, seizure-like activity. Family reports he was down for roughly 7 minutes. He was brought to the emergency department via EMS. He was febrile on arrival and was found to have pneumonia. He was mildly hypoxic as well and is normally not on oxygen. He was admitted for IV antibiotics and further work-up of syncope. Subjective/Events-last exam Pt reports doing well. Still has a headache but did not complain of this until reminded be family. Discussed plan for continued IV abx. He reports poor water intake and that's when his headaches started. Self limits intake due to weakness and difficulty getting to the bathroom. Focused Exam Lactate Level 12/13/21 19:38: Lactic Acid Level 1.42 Objective Exam Vital Signs Vital Signs Date Time Temp Pulse Resp B/P (MAP) Pulse Ox O2 Delivery O2 Flow Rate FiO2 12/15/21 09:07 Nasal Cannula 2.00 12/15/21 09:05 96 12/15/21 07:24 36.0 81 20 156/71 (99) Capillary Refill : General Appearance: No Apparent Distress, Chronically ill, Obese Respiratory: Lungs Clear, No Respiratory Distress Cardiovascular: No Murmur, Irregularly Irregular Neurologic/Psychiatric: Alert, Oriented x3 Results/Procedures Lab Laboratory Tests 12/15/21 05:27 Patient resulted labs reviewed. Imaging: Reviewed Imaging Report Assessment/Plan Assessment and Plan Assess & Plan/Chief Complaint Sepsis due to pneumonia Acute hypoxic respiratory failure Continue on IV abx Blood cultures NGTD Wean oxygen as able- down to 2lpm MAT protocol Syncope New onset atrial fibrillation HTN Patient denies history of this Cardiology consulted, appreciate recs Likely cause of syncope Continue telemetry Metastatic prostate cancer Age related debility frequent falls Follows with oncology Has appt with new oncologist on 12/16 PT/OT IDDMII SSI Fasting blood sugar 97 so hold home insulin DVT ppx: Lovenox ELIN LOCKETT MD Dec 15, 2021 10:13
--- NOTE | 2021-12-15 11:04 | Cardiology Progress Note ---
Progress Note-Cardiology Events since last exam Date Seen by Provider: Dec 15, 2021 Time Seen by Provider: 10:58 Events since last exam I am following him due to syncope. He denies any further syncope since being here in the hospital. He denies lightheadedness or dizziness. His main complaint is a slight headache. He denies chest pain, dyspnea at rest, palpitations, or lower extremity edema. Today his family told me that when he was standing up at the high school football game, somebody was helping him and as he started following, the bystanders helped him to the ground so that he did not actually fall and injure himself. Certain portions of this document may have been dictated utilizing voice rec ognition technology. Inherent to this technology, typographical and grammatical errors may exist. As much as I am diligent to identify and correct these mistakes, some errors may remain in the document. Vitals Last set of Vitals Signs Vital Signs 12/15/21 12/15/21 12/15/21 07:24 09:05 09:07 Temp 36.0 Pulse 81 Resp 20 B/P (MAP) 156/71 (99) Pulse Ox 96 O2 Delivery Nasal Cannula O2 Flow Rate 2.00 Labs Labs Laboratory Tests 12/15/21 05:27 Exam Vital Signs Vital Signs Date Time Temp Pulse Resp B/P (MAP) Pulse Ox O2 Delivery O2 Flow Rate FiO2 12/15/21 09:07 Nasal Cannula 2.00 12/15/21 09:05 96 12/15/21 07:24 36.0 81 20 156/71 (99) Physical Exam General: Alert. No acute distress. He is obese. He is wearing oxygen by nasal cannula. Eye: No xanthelasma. HENT: Normocephalic. Neck: Jugular venous pressure does not appear elevated. Respiratory: Lungs are clear to auscultation. Respirations are non-labored. Breath sounds are equal. Symmetrical chest wall expansion. Cardiovascular: Normal rate. Regular rhythm. No murmur. No gallop. No edema. Gastrointestinal: Soft. Normal bowel sounds. Skin: Warm. Dry. Neurologic: Alert and oriented to person, place, time. Cranial nerves 3-11 grossly intact. Psychiatric: Cooperative. Appropriate mood & affect. Labs Laboratory Tests Test 12/14/21 15:26 12/14/21 20:40 12/15/21 05:16 12/15/21 05:27 Range/Units Glucometer 123 H 146 H 101 70-110 MG/DL White Blood Count 5.6 4.3-11.0 10^3/uL Red Blood Count 2.86 L 4.30-5.52 10^6/uL Hemoglobin 8.1 L 13.3-17.7 g/dL Hematocrit 25 L 40-54 % Mean Corpuscular Volume 88 80-99 fL Mean Corpuscular Hemoglobin 28 25-34 pg Mean Corpuscular Hemoglobin Concent 32 32-36 g/dL Red Cell Distribution Width 14.6 H 10.0-14.5 % Platelet Count 212 130-400 10^3/uL Mean Platelet Volume 9.5 9.0-12.2 fL Sodium Level 131 L 135-145 MMOL/L Potassium Level 4.3 3.6-5.0 MMOL/L Chloride Level 99 98-107 MMOL/L Carbon Dioxide Level 23 21-32 MMOL/L Anion Gap 9 5-14 MMOL/L Blood Urea Nitrogen 10 7-18 MG/DL Creatinine 0.81 0.60-1.30 MG/DL Estimat Glomerular Filtration Rate 87 BUN/Creatinine Ratio 12 Glucose Level 102 70-105 MG/DL Calcium Level 9.0 8.5-10.1 MG/DL Test 12/15/21 10:28 Range/Units Glucometer 130 H 70-110 MG/DL Diagnosis/Problems Diagnosis/Problems (1) Syncope Status: Acute Assessment & Plan: Exact etiology unclear. There is no evidence of WPW, Brugada syndrome, or prolonged QT on his resting electrocardiogram. He has now been diagnosed with pneumonia and receiving intravenous antibiotics. He also reports poor oral intake over the past few days to weeks. I would question whether or not he may have had some significant orthostatic hypotension that led to the syncope. I recommend he continue on telemetry monitoring. He is now back on beta-jesica for his hypertension and has not had any significant bradycardia. Once he recovers from the pneumonia, I will consider an ischemic evaluation. He will be staying 1 more night in the hospital. As such, I will have him undergo an echocardiogram tomorrow. The ischemic evaluation could be done as an outpatient. I will try to coordinate getting him an external solar project coordination specialist around the time of discharge. (2) Atrial arrhythmia Assessment & Plan: He appears to have sinus arrhythmia with interspersed premature ventricular complexes and supraventricular premature complexes. I do not see any definitive evidence of atrial fibrillation. I recommend he continue on telemetry for at least the next couple of days while he is in the hospital. As above, I will try to coordinate getting him an external solar project coordination specialist at the time of discharge but before he goes home. He would have to be discharged and then go downstairs to registration and reregister as an outpatient. We cannot put the monitor on the patient while he is an inpatient and in his room. (3) Coronary artery disease without angina pectoris Assessment & Plan: He is not having any angina. He had a negative, undetectable troponin level. I restarted his aspirin. He is back on beta- jesica. He states he is intolerant to statin medications. As above, I may consider an ischemic evaluation following discharge. We will need to have a careful discussion with the patient about long-term treatment plans given his advanced age. (4) Mixed hyperlipidemia Assessment & Plan: His LDL level is just below 100. The most recent update on the guidelines for cholesterol management recommend getting an LDL level down below 70 or even 50 in patients with coronary artery disease. As above, he reports he is intolerant to statin medications. I will start him on acetamide. (5) Acute respiratory failure with hypoxemia Status: Acute Assessment & Plan: I suspect this is due to the pneumonia identified on his chest CT. He received almost 3 L of IV fluids which I discontinued on 12/14. Problem Qualifiers (1) Syncope: Syncope type: unspecified Qualified Codes: R55 - Syncope and collapse KEM FERNÁNDEZ JR, MD Dec 15, 2021 11:04
[2021-12-15 11:16] VITALS: BP 167/82
[2021-12-15 16:00] VITALS: BP 143/68
[2021-12-15] MEDS: ASPIRIN E.C. 81 MG (ECOTRIN) TAB PO SCH (19:51)
[2021-12-15] MEDS: TAMSULOSIN 0.4 MG (FLOMAX) CAP PO SCH (19:51)
[2021-12-15] MEDS: eZETimibe 10 MG (ZETIA) TABLET PO SCH (19:51)
[2021-12-15 20:21] VITALS: BP 158/78
[2021-12-15 23:00] VITALS: BP 158/72
[2021-12-16] MEDS: cefTRIAXone 1 GM/50 ML (PRE-MIX) IV SCH (00:17)
[2021-12-16] MEDS: AZITHROMYCIN 500 MG/NS 250 ML IVPB IV SCH ×2 (01:03)
[2021-12-16 04:00] VITALS: BP 159/85
[2021-12-16] MEDS: inSUlin ASPART (NovoLOG) 1 UNIT/0.01 ML (CHARGE PER UNIT) SC SCH ×4 (05:43→21:02)
[2021-12-16 07:56] VITALS: BP 176/83
[2021-12-16] MEDS: sulfaSALAzine 500 MG (AZULFIDINE) TAB PO SCH (08:49)
[2021-12-16] MEDS: ATENOLOL 25 MG (TENORMIN) TAB PO SCH (08:49)
[2021-12-16] MEDS: ERLEADA 60 MG PO SCH (08:50)
--- NOTE | 2021-12-16 09:48 | Cardiology Progress Note ---
Progress Note-Cardiology Events since last exam Date Seen by Provider: Dec 16, 2021 Time Seen by Provider: 09:48 Events since last exam I am following him due to syncope. He was up in the [place]lsen ambulating with a walker with physical therapy without any issues. He denies any further dizziness, lightheadedness, or syncope. He feels as though his breathing is back to baseline. He denies chest pain, palpitations, or ankle edema. His main complaint this morning was that he had some nausea. He denies abdominal pain. He thinks he may be a little bit constipated. Certain portions of this document may have been dictated utilizing voice recognition technology. Inherent to this technology, typographical and grammatical errors may exist. As much as I am diligent to identify and correct these mistakes, some errors may remain in the document. Vitals Last set of Vitals Signs Vital Signs 12/16/21 12/16/21 11:18 15:35 Temp 37.7 Pulse 84 Resp 20 B/P (MAP) 136/71 (92) Pulse Ox 93 O2 Delivery Room Air O2 Flow Rate 2.00 Exam Vital Signs Vital Signs Date Time Temp Pulse Resp B/P (MAP) Pulse Ox O2 Delivery O2 Flow Rate FiO2 12/16/21 15:35 37.7 84 20 136/71 (92) 93 Room Air 12/16/21 11:18 2.00 Physical Exam General: Alert. No acute distress. When I saw him he was walking in the hallway with physical therapy using a walker. Eye: No xanthelasma. HENT: Normocephalic. Neck: Jugular venous pressure does not appear elevated. Respiratory: Lungs are clear to auscultation. Respirations are non-labored. Breath sounds are equal. Symmetrical chest wall expansion. Cardiovascular: Normal rate. Regular rhythm. No murmur. No gallop. No edema. Gastrointestinal: Soft. Normal bowel sounds. Skin: Warm. Dry. Neurologic: Alert and oriented to person, place, time. Cranial nerves 3-11 grossly intact. Psychiatric: Cooperative. Appropriate mood & affect. Labs Laboratory Tests Test 12/15/21 20:54 12/16/21 05:35 12/16/21 11:15 12/16/21 15:43 Range/Units Glucometer 126 H 107 133 H 119 H 70-110 MG/DL Radiology ECHOCARDIOGRAM (12/16/2021): 1. This is a technically difficult study due to poor image quality secondary to patient's body habitus. Intravenous contrast was administered to enhance image quality. 2. Left ventricle: The cavity size is normal. There is mild concentric hypertrophy. Systolic function is normal. The estimated ejection fraction is 55- 60%. Regional wall motion abnormalities cannot be excluded due to poor endocardial definition. Doppler parameters are consistent with abnormal left ventricular relaxation (grade 1 diastolic dysfunction). 3. Left atrium: The left atrium is moderately to severely dilated with a volume index ranging from 35-51 mL/m. 4. Aortic valve: There is mild aortic valve sclerosis. 5. Mitral valve: The annulus is mildly calcified. 6. Pulmonary arteries: The estimated pulmonary artery systolic pressure is 22 mmHg assuming a right atrial pressure of 5 mmHg. Diagnosis/Problems Diagnosis/Problems (1) Syncope Status: Acute Assessment & Plan: Exact etiology unclear. There is no evidence of WPW, Brugada syndrome, or prolonged QT on his resting electrocardiogram. His echocardiogram from 12/16 did not show any structural heart disease that would predispose to syncope. He has now been diagnosed with pneumonia and receiving intravenous antibiotics. He also reports poor oral intake over the past few days to weeks. I would question whether or not he may have had some significant orthostatic hypotension that led to the syncope. I recommend he continue on telemetry monitoring. He is now back on beta-jesica for his hypertension and has not had any significant bradycardia. Once he recovers from the pneumonia, I will consider an ischemic evaluation. The ischemic evaluation could be done as an outpatient. I will try to coordinate getting him an external campus monitor around the time of discharge. He will first have to be discharged and then go to outpatient registration to get the monitor. (2) Atrial arrhythmia Assessment & Plan: He appears to have sinus arrhythmia with interspersed premature ventricular complexes and supraventricular premature complexes. I do not see any definitive evidence of atrial fibrillation. I recommend he continue on telemetry for at least the next couple of days while he is in the hospital. As above, I will try to coordinate getting him an external campus monitor at the time of discharge but before he goes home. Of note, we cannot put the monitor on the patient while he is still an inpatient and in his room. (3) Coronary artery disease without angina pectoris Assessment & Plan: He had a coronary stent many years ago. He is not having any angina. He had a negative, undetectable troponin level. Continue aspirin and beta-jesica. He states he is intolerant to statin medications. I started him on ezetimibe on 12/15. I may consider an ischemic evaluation following discharge. We will need to have a careful discussion with the patient about long-term treatment plans given his advanced age as to whether or not to proceed with an ischemic evaluation. (4) Mixed hyperlipidemia Assessment & Plan: His LDL level is just below 100. The most recent update on the guidelines for cholesterol management recommend getting an LDL level down below 70 or even 50 in patients with coronary artery disease. As above, he reports he is intolerant to statin medications. I started him on acetamide. (5) Acute respiratory failure with hypoxemia Status: Acute Assessment & Plan: I suspect this is due to the pneumonia identified on his chest CT. He received almost 3 L of IV fluids which I discontinued on 12/14. Problem Qualifiers (1) Syncope: Syncope type: unspecified Qualified Codes: R55 - Syncope and collapse KEM FERNÁNDEZ JR, MD Dec 16, 2021 09:48
--- NOTE | 2021-12-16 10:32 | Physical Therapy Daily Note ---
PT Daily Note-Current Subjective Patient agrees to PT. No c/o at this time. Pain Section J - Health Conditions 1. Rarely or not at all 2. Occasionally 3. Frequently 4. Almost constantly 8. Unable to answer Pain Effect on Sleep: 1 Pain Interference with Therapy: 1 Pain Interference w/Day-to-Day: 1 Mental Status Patient Orientation: Normal For Age Attachments: Oxygen Transfers SCALE: Activities may be completed with or without assistive devices. 6-Uibxbkxpno-lwrqfqq completes the activity by him/herself with no assistance from a helper. 5-Set-up or Clean-up Assistance-helper sets up or cleans up; patient completes activity. [place] assists only prior to or following the activity. 4-Supervision or Touching Assistance-helper provides verbal cues and/or touching/steadying and/or contact guard assistance as patient completes activity. Assistance may be provided throughout the activity or intermittently. 3-Partial/Moderate Assistance-helper does LESS THAN HALF the effort. [place] lifts, holds or supports trunk or limbs, but provides less than half the effort. 2-Substantial/Maximal Assistance-helper does MORE THAN HALF the effort. [place] lifts or holds trunk or limbs and provides more than half the effort. 9-Yaphtfdrq-cjizmj does ALL the effort. Patient does none of the effort to complete the activity. Or, the assistance of 2 or more helpers is required for the patient to complete the activity. If activity was not attempted, code reason: 7-Patient Refused. 9-Not Applicable-not attempted and the patient did not perform the activity before the current illness, exacerbation or injury. 10-Not Attempted due to Environmental Limitations-(lack of equipment, weather restraints, etc.). 88-Not Attempted due to Medical Conditions or Safety Concerns. Lying to Sitting/Side of Bed(Q: 6 Sit to Stand (QC): 4 Chair/Pcr-tf-Cmqcq Xfer(QC): 4 Gait Training Distance: 300' Walk 10 feet (QC): 4 Walk 50 ft with 2 Turns(QC): 4 Walk 150 ft (QC): 4 Gait Assistive Device: FWW safe and functional with no deviation on this date/noted increase SOA with minimal activity with O2 2L in place. Assessment Patient up in recliner with needs met. Patient tolerated treatment well and recovered quickly with breathing techniques. PT Charging Operator Goals Charging Operator Goals PT [facility] Goals Time Frame: Dec 21, 2021 Roll Left & Right (QC): 6 Sit to Lying (QC): 6 Lying-Sitting on Side/Bed(QC): 6 Sit to Stand (QC): 6 Chair/Pdf-yx-Wrpkt Xfer(QC): 6 Toilet Transfer (QC): 6 Walk 10 feet (QC): 6 Walk 50ft with 2 Turns (QC): 6 Walk 150 ft (QC): 6 1 Step (curb) (QC): 6 4 Steps (QC): 6 PT Plan Treatment/Plan Treatment Plan: Continue Plan of Care Treatment Plan: Bed Mobility, Education, Functional Activity Los, Functional Strength, Gait, Safety, Therapeutic Exercise, Transfers Treatment Duration: Dec 21, 2021 Frequency: 6 times per week Estimated Hrs Per Day: .25 hour per day Patient and/or Family Agrees t: Yes Time/GCodes Time In: 936 Time Out: 946 Total Billed Treatment Time: 10 Total Billed Treatment 1 visit FA 10 min ENRICO BARRIOS PT Dec 16, 2021 10:32
[2021-12-16 11:18] VITALS: BP 154/77
[2021-12-16] MEDS ORDERED: LACT1CAP39 PO (13:09)
[2021-12-16] MEDS ORDERED: IBUP-2473 PO (13:09)
[2021-12-16] MEDS ORDERED: CALC-722 PO (13:09)
[2021-12-16] MEDS: ACETAMINOPHEN 325 MG TABLET PO PRN (15:16)
[2021-12-16 15:35] VITALS: BP 136/71
[2021-12-16] MEDS ORDERED: ATENOLOL 25 MG (TENORMIN) TAB PO NR (17:00)
[2021-12-16] MEDS: IBUPROFEN 600 MG (MOTRIN) TAB PO PRN (17:46)
--- NOTE | 2021-12-16 18:42 | Progress Note - Hospitalist ---
Subjective HPI/CC On Admission Date Seen by Provider: Dec 16, 2021 Time Seen by Provider: 10:25 Patient is an 86-year-old male with past medical history of insulin- dependent diabetes type 2, metastatic prostate cancer, hypertension who presented to the emergency department due to syncope. He was at a local high school football game and suffered a syncopal episode. He states that he was slightly dizzy beforehand and then lost consciousness. He denies any nausea, tunnel vision, palpitations, seizure-like activity. Family reports he was down for roughly 7 minutes. He was brought to the emergency department via EMS. He was febrile on arrival and was found to have pneumonia. He was mildly hypoxic as well and is normally not on oxygen. He was admitted for IV antibiotics and further work-up of syncope. Subjective/Events-last exam He had some nausea with breakfast this morning. His breathing and cough are better. He was able to get up with therapy. Focused Exam Lactate Level 12/13/21 19:38: Lactic Acid Level 1.42 Objective Exam Vital Signs Vital Signs Date Time Temp Pulse Resp B/P (MAP) Pulse Ox O2 Delivery O2 Flow Rate FiO2 12/16/21 15:35 37.7 84 20 136/71 (92) 93 Room Air 12/16/21 11:18 2.00 Capillary Refill : General Appearance: No Apparent Distress, WD/WN Respiratory: Lungs Clear, No Respiratory Distress Cardiovascular: Regular Rate, Rhythm, No Murmur Extremity: Normal Inspection, Pedal Edema Neurologic/Psychiatric: Alert, Normal Mood/Affect Results/Procedures Lab Patient resulted labs reviewed. Imaging: Reviewed Imaging Report Assessment/Plan Assessment and Plan Assess & Plan/Chief Complaint Sepsis due to pneumonia Acute hypoxic respiratory failure Continue antibiotics Blood cultures NGTD MAT protocol Home oxygen study qualified for 2 L with exertion Syncope Atrial arrhythmia HTN Cardiology following Atenolol Planning for possible ischemic evaluation as outpatient Nausea and vomiting Antiemetics Monitor Metastatic prostate cancer Age related debility frequent falls Follows with oncology PT/OT Home health care on discharge IDDMII SSI DVT ppx: Lovenox Diagnosis/Problems Diagnosis/Problems (1) Pneumonia Status: Acute Qualifiers: Pneumonia type: due to unspecified organism Laterality: left Lung location: lower lobe of lung Qualified Codes: J18.9 - Pneumonia, unspecified organism (2) Acute respiratory failure with hypoxemia Status: Acute (3) Syncope Status: Acute Qualifiers: Syncope type: unspecified Qualified Codes: R55 - Syncope and collapse (4) Atrial arrhythmia Status: Acute (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
[2021-12-16 19:52] VITALS: BP 111/60
[2021-12-16] MEDS: ASPIRIN E.C. 81 MG (ECOTRIN) TAB PO SCH (20:52)
[2021-12-16] MEDS: eZETimibe 10 MG (ZETIA) TABLET PO SCH (20:52)
[2021-12-16] MEDS: TAMSULOSIN 0.4 MG (FLOMAX) CAP PO SCH (20:52)
[2021-12-17 00:10] VITALS: BP 109/54
[2021-12-17] MEDS: AZITHROMYCIN 500 MG/NS 250 ML IVPB IV SCH ×2 (00:59)
[2021-12-17] MEDS: cefTRIAXone 1 GM/50 ML (PRE-MIX) IV SCH (00:59)
[2021-12-17 04:05] VITALS: BP 129/65
[2021-12-17 05:30] LABS: HEMOGLOBIN 8.4 g/dL (13.3-17.7)
[2021-12-17] MEDS: inSUlin ASPART (NovoLOG) 1 UNIT/0.01 ML (CHARGE PER UNIT) SC SCH ×2 (06:13→11:23)
[2021-12-17 07:29] VITALS: BP 129/73
[2021-12-17] MEDS: sulfaSALAzine 500 MG (AZULFIDINE) TAB PO SCH (08:19)
[2021-12-17] MEDS: ERLEADA 60 MG PO SCH (08:20)
--- NOTE | 2021-12-17 08:50 | Physical Therapy Daily Note ---
PT Daily Note-Current Subjective Patient agrees to PT. No c/o at this time. Pain Section J - Health Conditions 1. Rarely or not at all 2. Occasionally 3. Frequently 4. Almost constantly 8. Unable to answer Pain Effect on Sleep: 1 Pain Interference with Therapy: 1 Pain Interference w/Day-to-Day: 1 Transfers SCALE: Activities may be completed with or without assistive devices. 8-Syrligzoaf-ezyldbv completes the activity by him/herself with no assistance from a helper. 5-Set-up or Clean-up Assistance-helper sets up or cleans up; patient completes activity. [place] assists only prior to or following the activity. 4-Supervision or Touching Assistance-helper provides verbal cues and/or touching/steadying and/or contact guard assistance as patient completes activity. Assistance may be provided throughout the activity or intermittently. 3-Partial/Moderate Assistance-helper does LESS THAN HALF the effort. [place] lifts, holds or supports trunk or limbs, but provides less than half the effort. 2-Substantial/Maximal Assistance-helper does MORE THAN HALF the effort. [place] lifts or holds trunk or limbs and provides more than half the effort. 3-Gckrhziwc-cmouqt does ALL the effort. Patient does none of the effort to complete the activity. Or, the assistance of 2 or more helpers is required for the patient to complete the activity. If activity was not attempted, code reason: 7-Patient Refused. 9-Not Applicable-not attempted and the patient did not perform the activity before the current illness, exacerbation or injury. 10-Not Attempted due to Environmental Limitations-(lack of equipment, weather restraints, etc.). 88-Not Attempted due to Medical Conditions or Safety Concerns. Lying to Sitting/Side of Bed(Q: 6 Sit to Stand (QC): 5 Chair/Yng-lo-Dtjvf Xfer(QC): 5 Gait Training Distance: 300' Walk 10 feet (QC): 5 Walk 50 ft with 2 Turns(QC): 5 Walk 150 ft (QC): 5 Gait Assistive Device: FWW safe and functional with no deviation Assessment Patient is up in recliner with breakfast in situ. Plan dismissal to home with spouse and home health this week. PT Mcfp Goals Coordinator Of Library Services Goals PT Coordinator Of Library Services Goals Time Frame: Dec 21, 2021 Roll Left & Right (QC): 6 Sit to Lying (QC): 6 Lying-Sitting on Side/Bed(QC): 6 Sit to Stand (QC): 6 Chair/Dhe-au-Tlfpu Xfer(QC): 6 Toilet Transfer (QC): 6 Walk 10 feet (QC): 6 Walk 50ft with 2 Turns (QC): 6 Walk 150 ft (QC): 6 1 Step (curb) (QC): 6 4 Steps (QC): 6 PT Plan Treatment/Plan Treatment Plan: Continue Plan of Care Treatment Plan: Bed Mobility, Education, Functional Activity Los, Functional Strength, Gait, Safety, Therapeutic Exercise, Transfers Treatment Duration: Dec 21, 2021 Frequency: 6 times per week Estimated Hrs Per Day: .25 hour per day Patient and/or Family Agrees t: Yes Time/GCodes Time In: 810 Time Out: 826 Total Billed Treatment Time: 16 Total Billed Treatment 1 visit FA 16 min ENRICO BARRIOS PT Dec 17, 2021 08:50
[2021-12-17] MEDS ORDERED: CEFDINIR 300 MG (OMNICEF) CAP PO SCH (09:00)
[2021-12-17] MEDS ORDERED: ATENOLOL 25 MG (TENORMIN) TAB PO SCH (09:00)
[2021-12-17] MEDS: IBUPROFEN 600 MG (MOTRIN) TAB PO PRN (09:25)
--- NOTE | 2021-12-17 09:59 | Cardiology Progress Note ---
Progress Note-Cardiology Events since last exam Date Seen by Provider: Dec 17, 2021 Time Seen by Provider: 09:58 Events since last exam I am following him for syncope. He denies any further lightheadedness or sy ncope. He feels as though his breathing is back to baseline. He denies chest discomfort, palpitations, or lower extremity edema. Certain portions of this document may have been dictated utilizing voice recognition technology. Inherent to this technology, typographical and grammatical errors may exist. As much as I am diligent to identify and correct these mistakes, some errors may remain in the document. Vitals Last set of Vitals Signs Vital Signs 12/16/21 12/17/21 20:00 13:30 Temp 36.6 Pulse 73 Resp 18 B/P (MAP) 149/75 Pulse Ox 92 O2 Delivery Room Air O2 Flow Rate 2.00 Labs Labs Laboratory Tests 12/17/21 05:10 Exam Vital Signs Vital Signs Date Time Temp Pulse Resp B/P (MAP) Pulse Ox O2 Delivery O2 Flow Rate FiO2 12/17/21 13:30 36.6 73 18 149/75 92 Room Air 12/16/21 20:00 2.00 Physical Exam General: Alert. No acute distress. He is obese. Eye: No xanthelasma. HENT: Normocephalic. Neck: Jugular venous pressure does not appear elevated. Respiratory: Lungs are clear to auscultation. Respirations are non-labored. Breath sounds are equal. Symmetrical chest wall expansion. Cardiovascular: Normal rate. Regular rhythm. No murmur. No gallop. No edema. Gastrointestinal: Soft. Normal bowel sounds. Skin: Warm. Dry. Neurologic: Alert and oriented to person, place, time. Cranial nerves 3-11 grossly intact. Psychiatric: Cooperative. Appropriate mood & affect. Labs Laboratory Tests Test 12/16/21 15:43 12/16/21 21:02 12/17/21 05:10 12/17/21 05:37 Range/Units Glucometer 119 H 153 H 104 70-110 MG/DL Hemoglobin 8.4 L 13.3-17.7 g/dL Hematocrit 26 L 40-54 % Test 12/17/21 11:03 Range/Units Glucometer 144 H 70-110 MG/DL Diagnosis/Problems Diagnosis/Problems (1) Syncope Status: Acute Assessment & Plan: Exact etiology unclear. There is no evidence of WPW, Brugada syndrome, or prolonged QT on his resting electrocardiogram. His ec hocardiogram from 12/16 did not show any structural heart disease that would predispose to syncope. He has been diagnosed with pneumonia and is receiving intravenous antibiotics. He also reports poor oral intake over the past few days to weeks. I would question whether or not he may have had some significant orthostatic hypotension that led to the syncope. I recommend he continue on telemetry monitoring. He is now back on beta-jesica for his hypertension and has not had any significant bradycardia. Once he recovers from the pneumonia, I will consider an ischemic evaluation. The ischemic evaluation could be done as an outpatient. I have ordered an external satellite project site monitor from my office system. We will get this to him before he leaves the facility at the time of discharge. He will first have to be discharged and then go to outpatient registration to get the monitor. I notified his nurse of this monitor so she can help coordinate him getting the monitor put in place before he goes home. However, this cannot be placed while the patient is still an inpatient and in his room. (2) Atrial arrhythmia Status: Acute Assessment & Plan: He appears to have sinus arrhythmia with interspersed premature ventricular complexes and supraventricular premature complexes. I do not see any definitive evidence of atrial fibrillation. I recommend he continue on telemetry for at least the next couple of days while he is in the hospital. As above, I will try to coordinate getting him an external satellite project site monitor at the time of discharge but before he goes home. (3) Coronary artery disease without angina pectoris Assessment & Plan: He had a coronary stent many years ago. He is not having any angina. He had a negative, undetectable troponin level. Continue aspirin and beta-jesica. He states he is intolerant to statin medications. I started him on ezetimibe on 12/15. I may consider an ischemic evaluation following discharge as noted above. We will need to have a careful discussion with the patient about long-term treatment plans given his advanced age as to whether or not to proceed with an ischemic evaluation. (4) Primary hypertension Assessment & Plan: At the time of admission, he told me he has been taking atenolol due to his history of coronary artery disease and in fact, started atenolol even before his myocardial infarction. However, during this hospitalization, his blood pressure became elevated and I increased his dose of atenolol. His blood pressure has improved but is not quite normotensive. This will need to be followed after discharge. (5) Mixed hyperlipidemia Assessment & Plan: His LDL level is just below 100. The most recent update on the guidelines for cholesterol management recommend getting an LDL level down below 70 or even 50 in patients with coronary artery disease. As above, he reports he is intolerant to statin medications. I started him on acetamide. (6) Acute respiratory failure with hypoxemia Status: Acute Assessment & Plan: I suspect this is due to the pneumonia identified on his chest CT. He received almost 3 L of IV fluids which I discontinued on 12/14. Problem Qualifiers (1) Syncope: Syncope type: unspecified Qualified Codes: R55 - Syncope and collapse KEM FERNÁNDEZ JR, MD Dec 17, 2021 09:59
[2021-12-17 11:23] VITALS: BP 149/75
[2021-12-17] MEDS ORDERED: CEFD300C3 PO (11:34)
[2021-12-17] MEDS ORDERED: EZET10TA49 PO (11:34)
--- NOTE | 2021-12-17 11:55 | Discharge Summary ---
Discharge Summary Reconcile Patient Problems Problems Reviewed?: Yes Instructions for Patient [facility] [employer] [facility] Assessment/Instructions See instructions Physician to follow Patient: Yamilex Discharge Diet for Home: Low Sodium Diet Hospital Course Date of Admission: Dec 13, 2021 at 21:30 Admission Diagnosis : Sepsis due to pneumonia, syncope Family Physician/Provider: Date of Discharge: 12/17/21 Discharge Diagnosis: Sepsis due to pneumonia, atrial arrhythmia, syncope Hospital Course: Arnol Paige is an 86 year old male with PMH HTN, T2DM, AFib, metastatic prostate cancer, who presented after a syncopal episode and was admitted with sepsis due to pneumonia. He was treated with IV antibiotics and improved. He will complete a course of oral Omnicef as an outpatient. He was requiring 2 L oxygen with activity and was set up with home oxygen. He was evaluated by Cardiology due to syncope and was found to have an atrial arrhythmia. He was set up with an external groundwater monitoring technician on discharge. He will follow up with Dr. Mckenna in the cardiology office. He had issues with nausea and vomiting which delayed his discharge. This improved with antiemetics. He should follow up with his PCP in about a week. He was set up with home health care on discharge. Labs and Pending Lab Test: Laboratory Tests 12/16/21 15:43: Glucometer 119H 12/16/21 21:02: Glucometer 153H 12/17/21 05:10: Hemoglobin 8.4L, Hematocrit 26L 12/17/21 05:37: Glucometer 104 12/17/21 11:03: Glucometer 144H Microbiology 12/13/21 Urine Culture - Final, Complete Gram Pos Mixed Bacterial Erica 12/13/21 Blood Culture - Preliminary, Resulted No growth Home Meds Active Ezetimibe 10 Mg Tablet 10 Mg PO HS 30 Days Cefdinir 300 Mg Capsule 300 Mg PO BID 4 Days Reported Citracal + D ER Tablet (Calcium Carb & Citrate/Vit D3) 600MG-12.5 Tablet.er 1 Each PO DAILY Ibuprofen 200 Mg Tablet 600 Mg PO Q6H PRN Culturelle (Lactobacillus Rhamnosus GG) 10 Billion Cell Capsule 1 Each PO DAILY Sulfasalazine 500 Mg Tablet 500 Mg PO DAILY Tresiba (Insulin Degludec) 100 Unit/Ml Vial 24 Unit SQ HS Erleada (Apalutamide) 60 Mg Tablet 240 Mg PO DAILY TAKES 4 (60MG) TABLETS Aspirin EC (Aspirin) 81 Mg Tablet.dr 81 Mg PO HS Fish Oil 1,000 mg Softgel ([place]-3/Dha/Epa/Fish Oil) 1,000 Mg (120 Mg-180 Mg) Capsule 3,000 Mg PO BID TAKES 3 (1000MG) TABLETS Coq-10 (Ubidecarenone) 100 Mg Capsule 100 Mg PO DAILY Multivitamin 1 Each Tablet 1 Each PO DAILY Atenolol 25 Mg Tablet 25 Mg PO DAILY Foltanx Tablet (Methyl-B12/l-Mefolate/B6 Phos) 2 Mg-3 Mg-35 Mg Tablet 1 Tab PO DAILY Flomax (Tamsulosin HCl) 0.4 Mg Cap 0.4 Mg PO HS Consulations Cardiology Patient Allergies: Coded Allergies: [id number] Reductase Inhibitor (Verified Allergy, Unknown, 12/13/21) Home Health Need/Face to Face Date of Face to Face: Dec 17, 2021 Clinical Findings: Generalized weakness and fatigue, Instability, Muscle weakness, Shortness of breath, Unsteady gait I have seen Pt [id number]: Yes Discharged To: Home Diagnosis/Conditions: Respiratory failure with hypoxia Pneumonia Atrial arrhythmia Metastatic prostate cancer HTN T2DM Problems/Diagnosis/Condition: (1) Acute respiratory failure with hypoxemia (2) Pneumonia (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 Pt req the following assistanc: Aid of another person, [facility] Nursing Orders Home Health Services Order: Nursing Services, [facility]-Evaluate & Treat, Physical Therapy-Evaluate & Treat Home Health Infusion Therapy Line Start Date: Dec 13, 2021 Therapy Orders Therapy Orders: OT (must have SN or PT order), Physical Therapy Therapy Specific Orders: Eval assistive deivces, Teach enviro modifications/safety, Gait training, Increase strength/endurance Certify Stmt I certify that this patient is under my care and that I, a nurse practitioner or a physician; a speech therapy assistant working with me, had a face to face encounter that - meets the physician face to face encounter requirements with this patient as dated. Discharge Physical Exam General: Alert, No Acute Distress Lungs: Clear to Auscultation, Normal Air Movement Heart: Regular Rate, No Murmurs Abdomen: Normal Bowel Sounds, Soft Extremities: No Edema, No Tenderness/Swelling Skin: No Rashes, No Significant Lesion Psych/Mental Status: Mental Status NL, Mood NL CINDI SANFORD MD Dec 17, 2021 11:44
[2021-12-17 13:30] VITALS: BP 149/75
[2021-12-17] MEDS ORDERED: ATEN25TA PO (14:28)
--- NOTE | 2021-12-17 17:33 | Physician Query Clarification ---
Physician Query-General Query to Physician: The medical record reflects the following clinical scenario: The patient, in the setting of History/Risk factors, Advanced Age, Pneumonia, Clinical Findings HR 83, RR 24, BP 126/62, SpO2 85% sat on room air T 39.6, WBC 8.5, lactic acid 1.42, ABG with pH 7.36, PCO2 48, PO2 80 on 4 L Treatment ER: Tylenol, cefepime IV, vancomycin IV, normal saline 2 L, Question: Do you agree with the impression of "Sepsis due to pneumonia" per Dr. Brian Chawla? 1. Yes; will document Sepsis due to pneumonia, present on admission in the Progress Notes 2. No; will continue current documentation in the Progress Notes 3. Other; will document explanation of clinical findings 4. Clinically undetermined; no explanation for clinical findings Please clarify and document your clinical opinion in the Progress Notes and Discharge Summary including the definitive and/or presumptive diagnosis, (suspected or probable), related to the above clinical findings. Please include clinical findings supporting your diagnosis. In responding to this query, please exercise your independent professional judgment. The purpose of this communication is to more accurately reflect the complexity of your patients condition. The fact that a question is asked does not imply that any particular answer is desired or expected. Thank you for timely response to this clarification. Ella Webb RN, MSN Clinical Unit Nurse [phone] PHYSICIAN RESPONSE: Based on the clinical findings in the record, please respond to the query above on this document as an addendum. Physician Response: Physician Response 3 Other Physician: Sepsis due to pneumonia, as documented in my notes If you have questions please contact: [employer]: Ext: Thank you for your time and cooperation. Clinical Unit Nurse/[employer] This is a permanent part of the medical record ELLA WEBB Dec 17, 2021 17:33 CINDI SANFORD MD Dec 18, 2021 21:13
== END 2021-12-17 15:56 | disposition home health service (06) | DRG 871 ==
LOC: EDUNIT# 19:21 → ER 19:23 → 4TH 21:30
PROVIDERS: ADMIT Family Medicine; ATTEND Internal Medicine
DX: A41.9 Sepsis, unspecified organism (principal); J18.9 Pneumonia, unspecified organism; J96.01 Acute respiratory failure with hypoxia; C79.82 Secondary malignant neoplasm of genital organs; Z20.822 Contact with and (suspected) exposure to COVID-19; R55 Syncope and collapse; E11.9 Type 2 diabetes mellitus without complications; I10 Essential (primary) hypertension; I48.91 Unspecified atrial fibrillation; R53.81 Other malaise; I49.9 Cardiac arrhythmia, unspecified; R11.2 Nausea with vomiting, unspecified; E78.2 Mixed hyperlipidemia; I25.10 Atherosclerotic heart disease of native coronary artery without angina pectoris
CPT/HCPCS: 36415; 70450; 71045; 71275; 72125; 80048; 80053; 80061; 81000; 82607; 82728; 82746; 82805; 82947; 83540; 83550; 83605; 83735; 83880; 84145; 84443; 84484; 85014; 85018; 85025; 85027; 85379; 85610; 85730; 87040; 87088; 87449; 87636; 93005; 93306; 94760; 94761; 96361; 96365; 96367; 99291

== ENCOUNTER → 2021-12-17 | Outpatient (CLI) | payer MEDICARE, OTHER ==
[~2021-12-17] MED LIST: APAL60TA PO; ASPI-1238 PO; ATEN25TA PO; CALC-722 PO; CEFD300C3 PO; CULTURELLE; EZET10TA49 PO; IBUP-2473 PO; INSU100V37 SQ; LACT1CAP39 PO; MESA1.2T3 PO; METH1TAB59 PO; MULT-1136 PO; OMEG100032 PO; SLF500T PO; TMSL.4C PO; UBID100C17 PO; citracal PO
== END ==
LOC: CARD 16:19
PROVIDERS: ATTEND Internal Medicine Cardiovascular Disease
DX: R55 Syncope and collapse (principal)

== ENCOUNTER 2021-12-27 05:59 | Observation (INO) | payer MEDICARE, OTHER ==
[~2021-12-27] VITALS: Ht 180.3 cm; Wt 102.7 kg
[2021-12-27] MEDS ORDERED: NS IV 500 ML 500 ML IV STA (06:20)
--- NOTE | 2021-12-27 06:27 | ED General ---
General Chief Complaint: General Problems/Pain Stated Complaint: WEAK Nursing Triage Note: TO ED [facility]IA [facility] FROM HOME WITH C/O INCREASED WEAKNESS. RECENT HOSPITAL ADMISSION AT THIS FACILITY. HAS BEEN DOING PHYSICAL THERAPY WITH HOME HEALTH. THIS MORNING PT STATES, "I FEEL WEAK A CAT". HX METASTIC PROSTATE CA. Source of Information: Patient, EMS Exam Limitations: No Limitations History of Present Illness Date Seen by Provider: Dec 27, 2021 Time Seen by Provider: 06:10 Initial Comments Patient is an 86-year-old male with a history of prostate cancer, hypertension and diabetes who presents to the emergency room by ambulance with a chief complaint of generalized weakness. Patient had a recent hospitalization for pneumonia on December 13. He was set up with home health. He states that he believes he has been having enough oral intake. He states he occasionally has some diarrhea. No problems with urination. He is not currently on any therapy for his prostate cancer. He states his oncologist at [facility] in [place] left and he is not even sure who his cancer doctor is anymore. He states that he got rid of his oral chemotherapeutic agents. He does not take them anymore. He denies feeling short of breath or productive cough. He is not on home oxygen he states but he was a little hypoxic at 87 to 88% on room air upon arrival and was placed on 2 L. Subsequent to that his oxygen is 97%. He denies chest pain. No abdominal pain, nausea or vomiting. No swelling in his legs. He states that he felt like he just did not have enough power in his legs to stand. He does normally ambulate at home with a walker. He also endorses a frontal headache that is "like a band" just above his e yebrows. He states he has this constantly. He normally takes ibuprofen which he states helps a little bit. He has not had any this morning. Timing/Duration: 1-2 Days Associated Systoms: Malaise, Weakness Allergies and Home Medications Allergies Coded Allergies: Zbbeatm-CNW-SgG Reductase Inhibitor (Verified Allergy, Unknown, 12/13/21) Patient Home Medication List Home Medication List Reviewed: Yes Apalutamide (Erleada) 60 Mg Tablet, 240 MG PO DAILY, (Reported) Entered as Reported by: Evelyn Colon on 12/14/21 0917 Aspirin (Aspirin EC) 81 Mg Tablet., 81 MG PO HS, (Reported) Entered as Reported by: Evelyn Colon on 12/14/21 0916 Atenolol (Atenolol) 25 Mg Tablet, 50 MG PO DAILY Prescribed by: KEM FERNÁNDEZ JR, MD on 12/17/21 1428 Calcium Carb & Citrate/Vit D3 (Citracal + D ER Tablet) 600MG-12.5 Tablet.er, 1 EACH PO DAILY, (Reported) Entered as Reported by: KARI BILLS on 12/16/21 1309 Cefdinir (Cefdinir) 300 Mg Capsule, 300 MG PO BID Prescribed by: CINDI SANFORD on 12/17/21 1134 Ezetimibe (Ezetimibe) 10 Mg Tablet, 10 MG PO HS Prescribed by: CINDI SANFORD on 12/17/21 1134 Ibuprofen (Ibuprofen) 200 Mg Tablet, 600 MG PO Q6H PRN for PAIN-MILD (1-4), (Reported) Entered as Reported by: KARI BILLS on 12/16/21 1309 Insulin Degludec (Tresiba) 100 Unit/Ml Vial, 24 UNIT SQ HS, (Reported) Entered as Reported by: Evelyn Colon on 12/14/21 0917 Lactobacillus Rhamnosus GG (Culturelle) 10 Billion Cell Capsule, 1 EACH PO DAILY, (Reported) Entered as Reported by: KARI BILLS on 12/16/21 1309 Methyl-B12/l-Mefolate/B6 Phos (Foltanx Tablet) 2 Mg-3 Mg-35 Mg Tablet, 1 TAB PO DAILY, (Reported) Entered as Reported by: Evelyn Colon on 12/14/21 0908 Multivitamin (Multivitamin) 1 Each Tablet, 1 EACH PO DAILY, (Reported) Entered as Reported by: Evelyn Colon on 12/14/21 0913 [place]-3/Dha/Epa/Fish Oil (Fish Oil 1,000 mg Softgel) 1,000 Mg (120 Mg-180 Mg) Capsule, 3,000 MG PO BID, (Reported) Entered as Reported by: Evelyn Colon on 12/14/21 0915 Sulfasalazine (Sulfasalazine) 500 Mg Tablet, 500 MG PO DAILY, (Reported) Entered as Reported by: Evelyn Colon on 12/14/21 0918 Tamsulosin HCl (Flomax) 0.4 Mg Cap, 0.4 MG PO HS, (Reported) Entered as Reported by: Evelyn Colon on 12/14/21904 Ubidecarenone (Coq-10) 100 Mg Capsule, 100 MG PO DAILY, (Reported) Entered as Reported by: Evelyn Colon on 12/14/2114 Review of Systems Review of Systems Constitutional: see HPI EENTM: no symptoms reported Respiratory: no symptoms reported Cardiovascular: no symptoms reported Gastrointestinal: loss of appetite Genitourinary: no symptoms reported Musculoskeletal: no symptoms reported Skin: no symptoms reported Psychiatric/Neurological: Headache, Weakness All Other Systems Reviewed Negative Unless Noted: Yes Past Mmgluuc-Kautdk-Xduvdx Hx Immunizations Up To Date First/Initial COVID19 Vaccinat: 2020 Second COVID19 Vaccination Alvarez: 2020 Past Medical History Surgery/Hospitalization HX: [place], PROSTATE CANCER, DM , STENT Physical Exam Vital Signs Vital Signs - First Documented 12/27/21 05:59 Temp 37.2 Pulse 82 Resp 16 B/P (MAP) 99/69 (79) Pulse Ox 95 O2 Delivery Room Air O2 Flow Rate 2.00 Capillary Refill : Less Than 3 Seconds Height, Weight, BMI Height: '" Weight: lbs. oz. kg; BMI Method: General Appearance: No Apparent Distress, WD/WN Eyes: Bilateral Eye Normal Inspection, Bilateral Eye PERRL, Bilateral Eye EOMI HEENT: Pharynx Normal, Other (slightly dry oral mucosa) Neck: Full Range of Motion, Normal Inspection Respiratory: Lungs Clear, Normal Breath Sounds, No Accessory Muscle Use, No Respiratory Distress, Other (lung sounds quite diminished) Cardiovascular: Regular Rate, Rhythm, Normal Peripheral Pulses, Other (occasional extra systoles) Gastrointestinal: Non Tender, Soft Extremity: Normal Capillary Refill, Normal Range of Motion, No Pedal Edema Neurologic/Psychiatric: Alert, Oriented x3, No Motor/Sensory Deficits, Normal Mood/Affect, filter pulp washer II-XII Norm as Tested Skin: Normal Color, Warm/Dry Progress/Results/Core Measures Suspected Sepsis SIRS Temperature: Pulse: 82 Respiratory Rate: 16 Laboratory Tests 12/27/21 06:35: White Blood Count 6.7 Blood Pressure 99 /69 Mean: 79 Laboratory Tests 12/27/21 06:35: Creatinine 0.75, Platelet Count 317, Total Bilirubin 0.5 Results/Orders Lab Results Laboratory Tests Test 12/27/21 06:35 12/27/21 07:15 Range/Units White Blood Count 6.7 4.3-11.0 10^3/uL Red Blood Count 3.23 L 4.30-5.52 10^6/uL Hemoglobin 9.1 L 13.3-17.7 g/dL Hematocrit 27 L 40-54 % Mean Corpuscular Volume 83 80-99 fL Mean Corpuscular Hemoglobin 28 25-34 pg Mean Corpuscular Hemoglobin Concent 34 32-36 g/dL Red Cell Distribution Width 15.7 H 10.0-14.5 % Platelet Count 317 130-400 10^3/uL Mean Platelet Volume 9.1 9.0-12.2 fL Immature Granulocyte % (Auto) 0 % Neutrophils (%) (Auto) 63 42-75 % Lymphocytes (%) (Auto) 26 12-44 % Monocytes (%) (Auto) 9 0-12 % Eosinophils (%) (Auto) 1 0-10 % Basophils (%) (Auto) 0 0-10 % Neutrophils # (Auto) 4.2 1.8-7.8 10^3/uL Lymphocytes # (Auto) 1.7 1.0-4.0 10^3/uL Monocytes # (Auto) 0.6 0.0-1.0 10^3/uL Eosinophils # (Auto) 0.1 0.0-0.3 10^3/uL Basophils # (Auto) 0.0 0.0-0.1 10^3/uL Immature Granulocyte # (Auto) 0.0 0.0-0.1 10^3/uL Sodium Level 129 L 135-145 MMOL/L Potassium Level 4.3 3.6-5.0 MMOL/L Chloride Level 95 L 98-107 MMOL/L Carbon Dioxide Level 23 21-32 MMOL/L Anion Gap 11 5-14 MMOL/L Blood Urea Nitrogen 10 7-18 MG/DL Creatinine 0.75 0.60-1.30 MG/DL Estimat Glomerular Filtration Rate 89 BUN/Creatinine Ratio 13 Glucose Level 138 H 70-105 MG/DL Calcium Level 10.0 8.5-10.1 MG/DL Corrected Calcium 10.4 H 8.5-10.1 MG/DL Magnesium Level 1.3 L 1.6-2.4 MG/DL Total Bilirubin 0.5 0.1-1.0 MG/DL Aspartate Amino Transf (AST/SGOT) 19 5-34 U/L Alanine Aminotransferase (ALT/SGPT) 12 0-55 U/L Alkaline Phosphatase 50 40-136 U/L C-Reactive Protein High Sensitivity 3.95 H 0.00-0.50 MG/DL Total Protein 6.5 6.4-8.2 GM/DL Albumin 3.5 3.2-4.5 GM/DL Urine Color YELLOW Urine Clarity CLEAR Urine pH 7.0 5-9 Urine Specific [place] 1.010 L 1.016-1.022 Urine Protein NEGATIVE NEGATIVE Urine Glucose (UA) NEGATIVE NEGATIVE Urine Ketones NEGATIVE NEGATIVE Urine Nitrite NEGATIVE NEGATIVE Urine Bilirubin NEGATIVE NEGATIVE Urine Urobilinogen 0.2 < = 1.0 MG/DL Urine Leukocyte Esterase 2+ H NEGATIVE Urine RBC (Auto) NEGATIVE NEGATIVE Urine RBC NONE /HPF Urine WBC 2-5 /HPF Urine Squamous Epithelial Cells 2-5 /HPF Urine Crystals NONE /LPF Urine Bacteria FEW H /HPF Urine Casts NONE /LPF Urine Mucus NEGATIVE /LPF Urine Culture Indicated YES My Orders Orders - VIOLA EDGAR MD Ed Iv/Invasive Line Start (12/27/21 06:20) Cbc With Automated Diff (12/27/21 06:20) Comprehensive Metabolic Panel (12/27/21 06:20) Ua Culture If Indicated (12/27/21 06:20) Ekg Tracing (12/27/21 06:20) Chest 1 View, Ap/Pa Only (12/27/21 06:20) Hs C Reactive Protein (12/27/21 06:20) Ns Iv 500 Ml (Sodium Chloride 0.9%) (12/27/21 06:20) Ibuprofen Tablet (Motrin Tablet) (12/27/21 06:45) Magnesium (12/27/21 06:34) Urine Culture (12/27/21 07:15) Medications Given in ED Current Medications Medications Dose Ordered Sig/Zuleima Route Start Time Stop Time Status Last Admin Dose Admin Ibuprofen 600 mg ONCE ONCE PO 12/27/21 06:45 12/27/21 06:46 DC 12/27/21 06:42 600 MG Vital Signs/I&O 12/27/21 12/27/21 05:59 05:59 Temp 37.2 Pulse 82 Resp 16 B/P (MAP) 99/69 (79) Pulse Ox 95 O2 Delivery Room Air Nasal Cannula O2 Flow Rate 2.00 Capillary Refill : Less Than 3 Seconds Blood Pressure Mean: 79 Progress Note #1: Time: 08:05 Progress Note I've discussed findings with the patient, his daughter and . Everything looks really reassuring - we are going to explore maybe an inpatient rehab stay. Waiting to talk to Dr Chawla. Progress Note #2: Time: 08:[address] Chawla is out of town and will not accept new admits to IP rehab. I spoke with Dr Fajardo who is going to see if maybe she can admit to rehab until Dr Chawla gets back in town. Patient SBP now up to 124. He's alert. NAD. Progress Note #3: Time: 09:11 Progress Note discussed with family and they were very uncomfortable with d/c to home even until Thursday at 11am. They do not feel like he is strong enough at all to go home. When I offered to try and find long-term placement/skilled the daughter addressed perhaps he had a small stroke. I reassured her his neurolog ical exam was completely normal. Discussed case again with Dr Fajarod - she will admit observation for antibiotics and fluids until Thursday when the patient can transition to rehab,. ECG Initial ECG Impression Date: Dec 27, 2021 Initial ECG Impression Time: : Initial ECG Rate: 78 Initial ECG Intervals: Normal Initial ECG Impression: Normal Comment low voltage inferior leads; NSR; no ST segment depression or elevation; normal intervals Diagnostic Imaging Diagonstic Imaging: Xray Plain Films/CT/US/NM/MRI: chest Comments NAME: FAMILIA GUEVARA [facility] REC#: [id number] PT STATUS: REG ER : 1935 PHYSICIAN: VIOLA EDGAR MD ADMIT DATE: 12/27/21/ER Draft Date of Exam:12/27/21 CHEST 1 VIEW, AP/PA ONLY INDICATION: generalized weakness, hypoxia. TECHNIQUE: Single view chest 6:32 AM. CORRELATION STUDY: 12/14/2021 FINDINGS: Heart size enlarged. Vasculature overall within normal limits. Unchanged elevated left diaphragm with likely minimal basilar atelectasis. Small amount of infiltrate and/or effusion considered less likely. Right lung clear. Old healed right posterior rib fractures. IMPRESSION: 1. Generally stable chest. Cardiac enlargement without failure. Unchanged elevated left diaphragm with likely minimal left basilar lung volume loss. Dictated on workstation # [id number] Dict: 12/27/2142 Trans: 12/27/21 0748 BO [id number] Interpreted by: RUBENS RANDHAWA DO Electronically signed by: Departure Impression Primary Impression: Urinary tract infection Qualified Codes: N39.0 - Urinary tract infection, site not specified Additional Impression: Generalized weakness Disposition: ADMITTED INPATIENT Condition: Stable Admissions Decision to Admit Reason: Admit from ER (General) Decision to Admit/Date: Dec 27, 2021 Time/Decision to Admit Time: 09:10 Departure-Patient Inst. Referrals: UNKNOWN (PCP/Family) Primary Care Physician VIOLA EDGAR MD Dec 27, 2021 06:27
[2021-12-27 06:44] LABS: BASOPHILS % (AUTO) 0 % (0-10); EOSINOPHILS # (AUTO) 0.1 10^3/uL (0.0-0.3); EOSINOPHILS % (AUTO) 1 % (0-10); HEMATOCRIT 27 % (40-54); HEMOGLOBIN 9.1 g/dL (13.3-17.7); LYMPHOCYTES # (AUTO) 1.7 10^3/uL (1.0-4.0); LYMPHOCYTES % (AUTO) 26 % (12-44); MEAN CORPUSCULAR HEMOGLOBIN 28 pg (25-34); MEAN CORPUSCULAR HGB CONC 34 g/dL (32-36); MEAN CORPUSCULAR VOLUME 83 fL (80-99); MEAN PLATELET VOLUME 9.1 fL (9.0-12.2); MONOCYTES # (AUTO) 0.6 10^3/uL (0.0-1.0); MONOCYTES % (AUTO) 9 % (0-12); NEUTROPHILS # (AUTO) 4.2 10^3/uL (1.8-7.8); NEUTROPHILS % (AUTO) 63 % (42-75); PLATELET COUNT 317 10^3/uL (130-400); WHITE BLOOD COUNT 6.7 10^3/uL (4.3-11.0)
[2021-12-27] MEDS ORDERED: IBUPROFEN 600 MG (MOTRIN) TAB PO ONE (06:45)
[2021-12-27 07:03] LABS: ALBUMIN 3.5 GM/DL (3.2-4.5); POTASSIUM 4.3 MMOL/L (3.6-5.0)
[2021-12-27 07:05] LABS: TOTAL PROTEIN 6.5 GM/DL (6.4-8.2)
[2021-12-27 07:07] LABS: BILIRUBIN,TOTAL 0.5 MG/DL (0.1-1.0)
[2021-12-27 07:09] LABS: CREATININE SERUM 0.75 MG/DL (0.60-1.30)
[2021-12-27 07:12] LABS: MAGNESIUM 1.3 MG/DL (1.6-2.4)
[2021-12-27 07:21] LABS: BILIRUBIN,URINE NEGATIVE (NEGATIVE); CLARITY,URINE CLEAR; COLOR,URINE YELLOW; GLUCOSE, URINE (UA) NEGATIVE (NEGATIVE); KETONES,URINE NEGATIVE (NEGATIVE); LEUKOCYTE ESTERASE ,URINE 2+ (NEGATIVE); NITRITE,URINE NEGATIVE (NEGATIVE); PROTEIN,URINE NEGATIVE (NEGATIVE)
[2021-12-27 07:42] LABS: BACTERIA,URINE FEW /HPF
--- NOTE | 2021-12-27 07:48 | Diagnostic Imaging Report ---
INDICATION: generalized weakness, hypoxia. TECHNIQUE: Single view chest 6:32 AM. CORRELATION STUDY: 12/14/2021 FINDINGS: Heart size enlarged. Vasculature overall within normal limits. Unchanged elevated left diaphragm with likely minimal basilar atelectasis. Small amount of infiltrate and/or effusion considered less likely. Right lung clear. Old healed right posterior rib fractures. IMPRESSION: 1. Generally stable chest. Cardiac enlargement without failure. Unchanged elevated left diaphragm with likely minimal left basilar lung volume loss. Dictated by: Dictated on workstation # [id number]
[2021-12-27] MEDS ORDERED: cefTRIAXone 1 GM PRE-MIX 50 ML IV ONE (09:15)
--- NOTE | 2021-12-27 09:45 | History & Physical-Hospitalist ---
History of Present Illness HPI/Chief Complaint Patient is an 86-year-old male with past medical history of insulin- dependent diabetes type 2, metastatic prostate cancer, hypertension who presented to the emergency department due to weakness. He was just admitted to the hospital a couple of weeks ago with pneumonia and syncope. He was discharged home with home health and had been working with them for strengthening as he had a long history of weakness prior to that admission. Despite working with home health PT/OT he has become more weak. His family has been unable to help him get around. He reports feeling "not worth a nickel" and "as weak as a cat." He was found to have a UTI and is being admitted for abx and PT/OT as he was unable to ambulate safely for DC home. Source: patient Date Seen 12/27/21 Time Seen by a Provider: 09:40 Attending Physician Unknown PCP Admitting Physician: Attending Physician: Referring Physician Date of Admission Home Medications & Allergies Home Medications Reviewed patient Home Medication Reconciliation performed by pharmacy medication reconciliations zoning technician and/or nursing. Patients Allergies have been reviewed. Allergies Allergies Coded Allergies Utkqlph-LTK-YhZ Reductase Inhibitor (Verified Allergy, Unknown, 12/13/21) Past Dpguxes-Javktv-Rsozii Hx Patient Social History Marrital Status: Employed/Student: retired Smoking Status: Unknown if Ever Smoked Immunizations Up To Date First/Initial COVID19 Vaccinat: 2020 Second COVID19 Vaccination Alvarez: 2020 Tetanus Booster (TDap): Unknown Current Status Primary Language: Mauritian Preferred Spoken Language: Mauritian Is interpretation needed?: No Past Medical History Hypertension Chronic Constipation Diabetes, Insulin dep Prostate Family Medical History No Pertinent Family Hx Review of Systems Constitutional: No chills, No fever; malaise, weakness EENTM: no symptoms reported Respiratory: no symptoms reported Cardiovascular: No chest pain, No syncope Gastrointestinal: No abdominal pain; constipation; No diarrhea Genitourinary: see HPI Musculoskeletal: muscle weakness Skin: no symptoms reported Psychiatric/Neurological: No Symptoms Reported Physical Exam Physical Exam Vital Signs Vital Signs - First Documented 12/27/21 05:59 Temp 37.2 Pulse 82 Resp 16 B/P (MAP) 99/69 (79) Pulse Ox 95 O2 Delivery Room Air O2 Flow Rate 2.00 Capillary Refill : Less Than 3 Seconds Height, Weight, BMI Height: '" Weight: lbs. oz. kg; BMI Method: General Appearance: No Apparent Distress, Chronically ill, Obese HEENT: PERRL/EOMI, Moist Mucous Membranes Neck: Normal Inspection, Supple Respiratory: Lungs Clear, No Accessory Muscle Use, No Respiratory Distress Cardiovascular: Regular Rate, Rhythm, No JVD, No Murmur Gastrointestinal: Normal Bowel Sounds, Non Tender, Soft Extremity: Normal Capillary Refill, No Calf Tenderness, No Pedal Edema Neurologic/Psychiatric: Alert, Oriented x3, Normal Mood/Affect; No Aphasia, No Facial Droop Skin: Pallor Results Results/Procedures Labs Laboratory Tests 12/28/21 05:09 12/29/21 05:41 Patient resulted labs reviewed. Imaging: Reviewed Imaging Report Imaging [facility] [place] NAME: FAMILIA GUEVARA [facility] REC#: [id number] PT STATUS: REG ER : 1935 PHYSICIAN: VIOLA EDGAR MD ADMIT DATE: 12/27/21/ER Draft Date of Exam:12/27/21 CHEST 1 VIEW, AP/PA ONLY INDICATION: generalized weakness, hypoxia. TECHNIQUE: Single view chest 6:32 AM. CORRELATION STUDY: 12/14/2021 FINDINGS: Heart size enlarged. Vasculature overall within normal limits. Unchanged elevated left diaphragm with likely minimal basilar atelectasis. Small amount of infiltrate and/or effusion considered less likely. Right lung clear. Old healed right posterior rib fractures. IMPRESSION: 1. Generally stable chest. Cardiac enlargement without failure. Unchanged elevated left diaphragm with likely minimal left basilar lung volume loss. Dictated on workstation # [id number] Dict: 12/27/21 0742 Trans: 12/27/21 0748 [facility] [id number] Interpreted by: RUBENS RANDHAWA DO Electronically signed by: Assessment/Plan Admission Diagnosis UTI with Weakness Admission Status: Observation Assessment and Plan UTI Weakness Unable to ambulate so unsafe for DC home Will admit for abx PT/OT IRF consulted, appreciate recs Metastatic prostate cancer Age related debility Frequent falls Follows with oncology IDDMII SSI Resume home meds as appropriate HTN HLD Resume home meds as appropriate DVT ppx: Lovenox Diagnosis/Problems Diagnosis/Problems (1) Urinary tract infection Status: Acute Qualifiers: Urinary tract infection type: site unspecified Hematuria presence: without hematuria Qualified Codes: N39.0 - Urinary tract infection, site not specified (2) Generalized weakness Status: Acute (3) Insulin dependent diabetes mellitus (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
[2021-12-27] MEDS ORDERED: NS IV 1000 ML 1,000 ML IV SCH (11:15)
[2021-12-27] MEDS ORDERED: ANTACID SUSP 30 ML UDC (MYLANTA) PO PRN (11:15)
[2021-12-27] MEDS ORDERED: PATIENT MAY USE OWN MEDS, ALL PO SCH (11:15)
[2021-12-27] MEDS ORDERED: BISACODYL 10 MG SUPP (DULCOLAX) PR PRN (11:15)
[2021-12-27] MEDS ORDERED: ACETAMINOPHEN 325 MG TABLET PO PRN (11:15)
[2021-12-27] MEDS ORDERED: MILK OF MAGNESIA 400 MG/5 ML 30 ML UDC PO PRN (11:15)
[2021-12-27] MEDS ORDERED: CALCIUM CARBONATE 500 MG (TUMS) TAB.CHEW PO PRN (11:15)
[2021-12-27] MEDS ORDERED: polyethylene glycoL POWDER 17 GM (MIRALAX) PACK PO PRN (11:15)
[2021-12-27] MEDS ORDERED: cefTRIAXone 1 GM PRE-MIX 50 ML IV SCH (11:15)
[2021-12-27] MEDS ORDERED: MELATONIN 3 MG TABLET PO PRN (11:15)
[2021-12-27 11:19] VITALS: BP 128/76
--- NOTE | 2021-12-27 13:50 | Occupational Therapy Eval ---
OT Evaluation-General/PLF Medical Diagnosis Admission Date Dec 27, 2021 at 09:14 Medical Diagnosis: general weakness Onset Date: Dec 27, 2021 Therapy Diagnosis Therapy Diagnosis: weakness, decreased ADL status Precautions Precautions/Isolations: Standard Precautions Referral Physician: Tana Referral Reason: Evaluation/Treatment Medical History Pertinent Medical History: DM, [place], Prostate CA Additional Medical History DM, metastatic prostate cancer, HTN Current History ED with weakness, found to have UTI. Social History Home: Single Level Current Living Status: Spouse Entry Into Home: Stairs With Railing Steps Into Home: 4 ADL-Prior Level of Function SCALE: Activities may be completed with or without assistive devices. 2-Aplbkzdrhv-dtjzpgq completes the activity by him/herself with no assistance from a helper. 5-Set-up or Clean-up Assistance-helper sets up or cleans up; patient completes activity. Colon assists only prior to or following the activity. 4-Supervision or Touching Assistance-helper provides verbal cues and/or touching/steadying and/or contact guard assistance as patient completes activity. Assistance may be provided throughout the activity or intermittently. 3-Partial/Moderate Assistance-helper does LESS THAN HALF the effort. Colon lifts, holds or supports trunk or limbs, but provides less than half the effort. 2-Substantial/Maximal Assistance-helper does MORE THAN HALF the effort. Colon lifts or holds trunk or limbs and provides more than half the effort. 5-Jtxyazmyd-heifar does ALL the effort. Patient does none of the effort to complete the activity. Or, the assistance of 2 or more helpers is required for the patient to complete the activity. If activity was not attempted, code reason: 7-Patient Refused. 9-Not Applicable-not attempted and the patient did not perform the activity before the current illness, exacerbation or injury. 10-Not Attempted due to Environmental Limitations-(lack of equipment, weather restraints, etc.). 88-Not Attempted due to Medical Conditions or Safety Concerns. ADL PLOF Comments Pt's reports pt was independent with ADLS and functional mobility using FWW prior to a couple of months ago. Over the last month, has been assisting with footwear, LE dressing and ADLs as needed. They have a walk in shower with DE Self Care: Independent Functional Cognition: Independent OT Current Status Subjective Pt in bed, and daughter at bedside. Pt agreeable to OT evaluation/tx. initially declined pain, but later states slight headache Mental Status/Objective Patient Orientation: Person, Confused, Place Attachments: IV, SCD's Current Hand Dominance: Right Upper Extremity ROM Decreased bilaterally. BUE shoulder flexion to approx 80 degrees AROM Upper Extremity Strength grossly 3/5 ADL-Treatment Lower Body Dressing (QC): 1 (Assist x2 would be required.) On/Off Footwear (QC): 1 (Total assist donning/doffing gripper socks. Pt's indicates she has been assisting for 6 weeks.) Toileting Hygiene (QC): 1 (Assist x2 in stand and assist all parts.) Other Treatments Pt in bed, transferred supine to sit EOB, then stood at FWW, Max A. Pt retropulsive in stand and picking walker up off of floor. With verbal cues and hand over hand assistance, pt unable to keep walker on the floor. Pt sat back EOB, requests commode. SPT to BSC dependently, then pt completed toileting (Assist x2). Pt urinated on floor, OT cleaned up prior to transfer back to bed. SPT back to bed dependently, pt unable to take any steps or pivot feet, requiring assist x2 to return to bed. Pt scooted towards L in sitting towards HOB, then supine max A. Pt able to scoot up towards HOB with cues for direction and assist with UE positioning. Post tx, pt in bed, call light in reach and all needs met. Education OT Patient Education: Correct positioning, Energy conservation, Modified ADL techniques, Progress toward Goal/Update tx plan, Purpose of tx/functional activities, Rehab process Teaching Recipient: Patient Teaching Methods: Discussion Response to Teaching: Verbalize Understanding OT Shelter Goals Tool Dresser Goals Time Frame: Jan 10, 2022 Eating (QC): 5 Oral Hygiene (QC): 5 Toileting Hygiene (QC): 4 Shower/Bathe Self (QC): 4 Upper Body Dressing (QC): 5 Lower Body Dressing (QC): 4 On/Off Footwear (QC): 4 Additional Goals: 1-Demonstrate ADL Tasks, 2-Verbalize Understanding, 3- ImproveStrength/Los 1=Demonstrate adherence to instructed precautions during ADL tasks. 2=Patient will verbalize/demonstrate understanding of assistive devices/modifications for ADL. 3=Patient will improve strength/tolerance for activity to enable patient to perform ADL's. OT Education/Plan Problem List/Assessment Assessment: Decreased Activ Tolerance, Decreased Safety Aware, Decreased UE Strength, Dependent Transfers, Impaired Bed Mobility, Impaired Cognition, Impaired Funct Balance, Impaired I ADL's, Impaired Self-Care Skills, Restricted Funct UE ROM Pt would benefit from skilled OT Services in order to increase BUE strength and activity tolerance, and increase independence with ADLs and functional mobility in order to maximize LOF and decrease caregiver burden. Discharge Recommendations Plan/Recommendations: Continue POC Therapy Discharge Recommendati: Post Acute OT (SNF) Treatment Plan/Plan of Care Patient would benefit from OT for education, treatment and training to promote independence in ADL's, mobility, safety and/or upper extremity function for ADL's. Plan of Care: ADL Retraining, Functional Mobility, UE Funct Exercise/Act Treatment Duration: Jan 10, 2022 Frequency: 3 times per week (3-5 times per week) Estimated Hrs Per Day: .25 hour per day Agreement: Yes Time/GCodes Start Time: 13:14 Stop Time: 13:37 Total Time Billed (hr/min): 23 Billed Treatment Time 1, EVH (10'), ADL (13') SESAR MORROW OT Dec 27, 2021 13:50
--- NOTE | 2021-12-27 14:17 | Physical Therapy Evaluation ---
PT Evaluation-General Medical Diagnosis Admission Date Dec 27, 2021 at 09:14 Medical Diagnosis: general weakness Onset Date: Dec 27, 2021 Therapy Diagnosis Therapy Diagnosis: impaired mobility, strength Precautions Precautions/Isolations: Standard Precautions Referral Physician: Tana Reason for Referral: Evaluation/Treatment Medical History Pertinent Medical History: DM, LA, Prostate CA Additional Medical History Past Medical History Hypertension Chronic Constipation Diabetes, Insulin dep Prostate Reviewed History: Yes Social History Home: Single Level Current Living Status: Spouse Entry Into Home: Stairs With Railing PT Steps Into Home: 4 Prior Prior Level of Function SCALE: Activities may be completed with or without assistive devices. 1-Qehqxrvfam-kizlncb completes the activity by him/herself with no assistance from a helper. 5-Set-up or Clean-up Assistance-helper sets up or cleans up; patient completes activity. [place] assists only prior to or following the activity. 4-Supervision or Touching Assistance-helper provides verbal cues and/or touching/steadying and/or contact guard assistance as patient completes activity. Assistance may be provided throughout the activity or intermittently. 3-Partial/Moderate Assistance-helper does LESS THAN HALF the effort. [place] lifts, holds or supports trunk or limbs, but provides less than half the effort. 2-Substantial/Maximal Assistance-helper does MORE THAN HALF the effort. [place] lifts or holds trunk or limbs and provides more than half the effort. 8-Xxxohlucq-nbozae does ALL the effort. Patient does none of the effort to complete the activity. Or, the assistance of 2 or more helpers is required for the patient to complete the activity. If activity was not attempted, code reason: 7-Patient Refused. 9-Not Applicable-not attempted and the patient did not perform the activity before the current illness, exacerbation or injury. 10-Not Attempted due to Environmental Limitations-(lack of equipment, weather restraints, etc.). 88-Not Attempted due to Medical Conditions or Safety Concerns. Indoor Mobility (Ambulation): Needed Some Help Stairs: Needed Some Help Progressive weakness over the last 2 weeks. PT Evaluation-Current Subjective Patient in bed pre tx, agrees to PT, has a slight headache. Pt/Family Goals to be independent at home Objective Patient Orientation: Person, Place, Situation Attachments: IV ROM/Strength ROM Lower Extremities WNL Strength Lower Extremities LLE (hip flexion 3-/5, knee flexion 3+/5, knee extension 4/5, dorsiflexion 4/5), RLE (hip flexion 3-/5, knee flexion 3+/5, knee extension 4/5, dorsiflexion 4/5) Sensory Hearing: Functional Hand Dominance: Right Sensation Right Lower Extremit: Intact Sensation Left Lower Extremity: Impaired Transfers Roll Left to Right (QC): 2 Sit to Lying (QC): 2 Lying to Sitting/Side of Bed(Q: 2 Sit to Stand (QC): 1 Chair/Sau-wj-Uggvz Xfer(QC): 1 Toilet Transfer (QC): 1 Max assist for supine to sit, stood with a rolling walker with max assist but was retropulsive and very unsteady, patient states he needs to use the commode, sat down and then stood again with dependent transfer to commode, stands again dependent, is cleaned and then dependent transfer back to bed, max assist sit to supine. Patient is able to scoot up in bed with cues for direction. Balance Sitting Static: Poor Sitting Dynamic: Poor Standing Static: Poor Standing Dynamic: Poor Treatment BLE supine exercise x10 (AP, HS) Assessment/Needs Patient in bed post tx with nurse call, phone, tray, all needs met. Patient seems slow to respond to questions. He was not able to take any steps on his own during transfers. 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 Time Frame: Jan 03, 2022 Roll Left & Right (QC): 3 Sit to Lying (QC): 3 Lying-Sitting on Side/Bed(QC): 3 Sit to Stand (QC): 3 Chair/Eeu-uq-Cfqxu Xfer(QC): 3 Walk 10 feet (QC): 3 PT Plan Problem List Problem List: Activity Tolerance, Functional Strength, Safety, Balance, Gait, Transfer, Bed Mobility, ROM Treatment/Plan Treatment Plan: Continue Plan of Care Treatment Plan: Bed Mobility, Education, Functional Activity Los, Functional Strength, Gait, Safety, Therapeutic Exercise, Transfers Treatment Duration: Jan 03, 2022 Frequency: 6 times per week Estimated Hrs Per Day: .25 hour per day Patient and/or Family Agrees t: Yes Safety Risks/Education Patient Education: Transfer Techniques, Correct Positioning, Safety Issues Teaching Recipient: Patient Teaching Methods: Demonstration, Discussion Response to Teaching: Reinforcement Needed Discharge Recommendations Plan Patient will perform bed mobility and transfer training, balance and endurance training, functional strengthening, gait training, and education, to improve functional mobility and independence at home. Therapy Discharge Recommendati: Other, See Comments (NH) Time/GCodes Time In: 1313 Time Out: 1336 Total Billed Treatment Time: 23 Total Billed Treatment 1 visit EVM 10' FA 13' AUDREY GARCIA PT Dec 27, 2021 14:17
[2021-12-27] MEDS ORDERED: EZET10TA49 PO ×2 (15:06)
[2021-12-27] MEDS ORDERED: INSU200I4 SC ×2 (15:06)
[2021-12-27] MEDS ORDERED: ATEN25TA PO ×2 (15:06)
[2021-12-27] MEDS ORDERED: FLU QUAD HIGH DOSE 240 MCG/0.7 ML 2022-23 (FLUZONE) IM ONE (15:15)
[2021-12-27] MEDS ORDERED: IBUPROFEN 800 MG (MOTRIN) TAB PO PRN (15:45)
[2021-12-27 15:54] VITALS: BP 151/74
[2021-12-27] MEDS ORDERED: IBUPROFEN TABLET 200 MG TAB PO PRN (17:45)
[2021-12-27 19:32] VITALS: BP 116/66
[2021-12-27] MEDS: inSUlin ASPART (NovoLOG) 1 UNIT/0.01 ML (CHARGE PER UNIT) SC SCH (19:59)
[2021-12-27] MEDS: TAMSULOSIN 0.4 MG (FLOMAX) CAP PO SCH (20:17)
[2021-12-27] MEDS: ASPIRIN E.C. 81 MG (ECOTRIN) TAB PO SCH (20:17)
[2021-12-27] MEDS: eZETimibe 10 MG (ZETIA) TABLET PO SCH (20:17)
[2021-12-27] MEDS: OMEGA 3 (FISH OIL) 1000 MG CAP PO SCH (20:17)
[2021-12-27] MEDS ORDERED: CITRATE PO SCH (21:00)
[2021-12-27] MEDS ORDERED: CALCIUM CARB PO SCH (21:00)
[2021-12-27] MEDS ORDERED: VIT D3 PO SCH (21:00)
[2021-12-27] MEDS ORDERED: [UNRECOGNIZED DRUG - OTHER] PO SCH (21:00)
[2021-12-28 00:38] VITALS: BP 131/73
[2021-12-28 05:40] LABS: HEMATOCRIT 27 % (40-54); HEMOGLOBIN 8.8 g/dL (13.3-17.7); MEAN CORPUSCULAR HEMOGLOBIN 28 pg (25-34); MEAN CORPUSCULAR HGB CONC 33 g/dL (32-36); MEAN CORPUSCULAR VOLUME 84 fL (80-99); MEAN PLATELET VOLUME 9.3 fL (9.0-12.2); PLATELET COUNT 300 10^3/uL (130-400); WHITE BLOOD COUNT 5.9 10^3/uL (4.3-11.0)
[2021-12-28 05:44] LABS: ALBUMIN 3.3 GM/DL (3.2-4.5); POTASSIUM 4.3 MMOL/L (3.6-5.0)
[2021-12-28 05:46] LABS: CALCIUM 9.5 MG/DL (8.5-10.1)
[2021-12-28 05:47] LABS: TOTAL PROTEIN 6.1 GM/DL (6.4-8.2)
[2021-12-28 05:49] LABS: BILIRUBIN,TOTAL 0.4 MG/DL (0.1-1.0)
[2021-12-28 05:50] LABS: CREATININE SERUM 0.69 MG/DL (0.60-1.30)
[2021-12-28] MEDS: inSUlin ASPART (NovoLOG) 1 UNIT/0.01 ML (CHARGE PER UNIT) SC SCH ×4 (06:10→21:02)
[2021-12-28] MEDS: LACTOBACILLUS ACIDOPHILUS (PROBIOTIC) CAPSULE PO SCH (07:50)
[2021-12-28] MEDS: OMEGA 3 (FISH OIL) 1000 MG CAP PO SCH ×2 (07:50→20:51)
[2021-12-28] MEDS: FOLIC ACID 1 MG TAB PO SCH (07:51)
[2021-12-28] MEDS: sulfaSALAzine 500 MG (AZULFIDINE) TAB PO SCH (07:51)
[2021-12-28] MEDS: ATENOLOL 25 MG (TENORMIN) TAB PO SCH (07:51)
[2021-12-28] MEDS: MULTIVIT W/MINERALS TAB (THERAGRAN M) PO SCH (07:51)
[2021-12-28 08:00] VITALS: BP 138/73
[2021-12-28] MEDS: CALCIUM CARB + VIT D 600 MG (CALCARB + D) TAB PO SCH ×2 (08:36→17:43)
[2021-12-28] MEDS ORDERED: NON-FORMULARY MEDICATION 1 EA EA (Lactobacillus Rhamnosus GG (Culturelle) 1 EACH) PO SCH (09:00)
[2021-12-28] MEDS ORDERED: NON-FORMULARY MEDICATION 1 EA EA (Ubidecarenone (Coq-10) 100 MG) PO SCH (09:00)
[2021-12-28] MEDS ORDERED: NON-FORMULARY MEDICATION 1 EA EA (Multivitamin 1 EACH) PO SCH (09:00)
[2021-12-28] MEDS: cefTRIAXone 1 GM PRE-MIX 50 ML IV SCH (10:12)
[2021-12-28] MEDS ORDERED: LOPERAMIDE 2 MG (IMODIUM) TABLET PO PRN (10:30)
--- NOTE | 2021-12-28 10:44 | Progress Note - Hospitalist ---
Subjective HPI/CC On Admission Date Seen by Provider: Dec 28, 2021 Patient is an 86-year-old male with past medical history of insulin- dependent diabetes type 2, metastatic prostate cancer, hypertension who presented to the emergency department due to weakness. He was just admitted ot the hospital a couple of weeks ago with pneumonia and syncope. He was discharged home with home health and had been working with them for strengthening as he had a long history of weakness prior to that admission. Despite working with home health PT/OT he has become more weak. His family has been unable to help him get around. He reports feeling "not worth a nickel" and "as weak as a cat." He was found to have a UTI and is being admitted for abx and PT/OT as he was unable to ambulate safely for DC home. Subjective/Events-last exam Pt reports still not feeling well. Worked with PT yesterday. No specific complaints per patient. reports new onset diarrhea with 2 loose but not watery BMs today. Then daughter reports that he developed right sided weakness before coming in to the hospital yesterday but probable onset sometime in the last day or so. He then endorses this weakness. Daughter is concerned that he may have had a stroke. We discussed plan for CT Head but outside the window for TPA. If CT Head negative informed them MRI could be done during the week but not possible over the weekend. Also patient was unable to make oncology appointment last week and has not followed up. I explained to them my concern that some of this could be progressing cancer. They expressed understanding. Objective Exam Vital Signs Vital Signs Date Time Temp Pulse Resp B/P (MAP) Pulse Ox O2 Delivery O2 Flow Rate FiO2 12/29/21 10:47 36.7 78 18 132/69 88 Nasal Cannula 2.00 Capillary Refill : Less Than 3 Seconds General Appearance: No Apparent Distress, Chronically ill, Obese Respiratory: Lungs Clear, No Respiratory Distress Cardiovascular: Regular Rate, Rhythm, No Murmur Gastrointestinal: Normal Bowel Sounds, Non Tender, Soft Neurologic/Psychiatric: Alert, Oriented x3; No Aphasia; Motor Weakness (right upper extremity 4/5, left upper 5/5) Results/Procedures Lab Laboratory Tests 12/29/21 05:41 Patient resulted labs reviewed. Imaging: Reviewed Imaging Report Assessment/Plan Assessment and Plan Assess & Plan/Chief Complaint UTI Weakness Await cultures and continue abx CT head to evaluate for stroke given new complaint of right sided weakness PT/OT IRF consulted, planning admission to IRF tomorrow if doing well Ensure Metastatic prostate cancer Age related debility Frequent falls Follows with oncology but has not been able to follow recently I attempted to order a PSA to check for worsening levels but [facility] has a hard stop that I cannot order it Will attempt to speak to lab about getting this done IDDMII SSI HTN HLD Resume home meds as appropriate DVT ppx: Lovenox Diagnosis/Problems Diagnosis/Problems (1) Urinary tract infection Status: Acute Qualifiers: Urinary tract infection type: site unspecified Hematuria presence: without hematuria Qualified Codes: N39.0 - Urinary tract infection, site not specified (2) Generalized weakness Status: Acute (3) Insulin dependent diabetes mellitus (4) 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
[2021-12-28] MEDS: ONDANSETRON 4 MG/2 ML (SDV) Z0FRAN IV PRN ×2 (11:14→17:49)
--- NOTE | 2021-12-28 11:14 | Diagnostic Imaging Report ---
PROCEDURE: CT head wo r/o stroke. TECHNIQUE: Multiple contiguous axial images were obtained through the brain without the use of intravenous contrast. Auto Exposure Controls were utilized during the CT exam to meet ALARA standards for radiation dose reduction. INDICATION: Right-sided weakness with vomiting. EXAMINATION: CT brain without contrast 12/28/2021 COMPARISON: 12/13/2021. FINDINGS: There are scattered chronic ischemic changes in a periventricular and deep white matter distribution. There is age-appropriate atrophy. There is no acute hemorrhage or infarct. No mass, mass effect or midline shift. No hydrocephalus. The paranasal sinuses and mastoid air cells unremarkable for acute abnormality. IMPRESSION: 1. Chronic findings with no acute intracranial process. Dictated by: Dictated on workstation # [id number]
--- NOTE | 2021-12-28 11:17 | Physical Therapy Daily Note ---
PT Daily Note-Current Subjective Pt agreeable, family in room. Denies pain but states "Things just don't want to work too well". Pain Numeric Pain Scale: 0-No Pain Section J - Health Conditions 1. Rarely or not at all 2. Occasionally 3. Frequently 4. Almost constantly 8. Unable to answer Pain Effect on Sleep: 1 Pain Interference with Therapy: 1 Pain Interference w/Day-to-Day: 1 Mental Status Patient Orientation: Person, Place Transfers SCALE: Activities may be completed with or without assistive devices. 2-Elqkwaljyc-nlqzanz completes the activity by him/herself with no assistance from a helper. 5-Set-up or Clean-up Assistance-helper sets up or cleans up; patient completes activity. [place] assists only prior to or following the activity. 4-Supervision or Touching Assistance-helper provides verbal cues and/or touching/steadying and/or contact guard assistance as patient completes activity. Assistance may be provided throughout the activity or intermittently. 3-Partial/Moderate Assistance-helper does LESS THAN HALF the effort. [place] lift s, holds or supports trunk or limbs, but provides less than half the effort. 2-Substantial/Maximal Assistance-helper does MORE THAN HALF the effort. [place] lifts or holds trunk or limbs and provides more than half the effort. 3-Sqvqfgvry-ohvcmo does ALL the effort. Patient does none of the effort to complete the activity. Or, the assistance of 2 or more helpers is required for the patient to complete the activity. If activity was not attempted, code reason: 7-Patient Refused. 9-Not Applicable-not attempted and the patient did not perform the activity before the current illness, exacerbation or injury. 10-Not Attempted due to Environmental Limitations-(lack of equipment, weather restraints, etc.). 88-Not Attempted due to Medical Conditions or Safety Concerns. Lying to Sitting/Side of Bed(Q: 2 Sit to Stand (QC): 2 Chair/Hqy-zi-Enyse Xfer(QC): 1 Sit->stand with max A x 1. Bed->Chair with FWW with min-mod A x 2. Pt with knee flexion and weakness evident when standing on (R) LE. Max VCS to complete transfer before attempting to sit. Weight Bearing Right Lower Extremity: Right Full Weight Bearing Left Lower Extremity: Left Full Weight Bearing Gait Training Does the Patient Walk?: No and Walking Goal IS indicated Treatments Transfer training with FWW. Pt up in chair with nursing notified of position and level of assist required, family in room and needs met. Assessment Current Status: Poor Progress Pt tolerated fair. Weakness in (R) UE and LE limits safety with transfers. PT Dehairer Goals Dehairer Goals PT Mcc Goals Time Frame: Jan 03, 2022 Roll Left & Right (QC): 3 Sit to Lying (QC): 3 Lying-Sitting on Side/Bed(QC): 3 Sit to Stand (QC): 3 Chair/Wpy-kp-Quvij Xfer(QC): 3 Walk 10 feet (QC): 3 PT Plan Problem List Problem List: Activity Tolerance, Functional Strength, Safety, Balance, Gait, Transfer, Bed Mobility Treatment/Plan Treatment Plan: Continue Plan of Care Treatment Plan: Bed Mobility, Education, Functional Activity Los, Functional Strength, Gait, Safety, Therapeutic Exercise, Transfers Treatment Duration: Jan 03, 2022 Frequency: 6 times per week Estimated Hrs Per Day: .25 hour per day Patient and/or Family Agrees t: Yes Time/GCodes Time In: 803 Time Out: 824 Total Billed Treatment Time: 21 Total Billed Treatment 1, FA x 21' NASIR BURGER DPKen Dec 28, 2021 11:17
[2021-12-28 15:30] VITALS: BP_SYST 105; BP_SYST 139; BP_DIAS 61; BP_DIAS 75
[2021-12-28] MEDS: ASPIRIN E.C. 81 MG (ECOTRIN) TAB PO SCH (20:51)
[2021-12-28] MEDS: eZETimibe 10 MG (ZETIA) TABLET PO SCH (20:51)
[2021-12-28] MEDS: TAMSULOSIN 0.4 MG (FLOMAX) CAP PO SCH (20:51)
[2021-12-29 00:37] VITALS: BP 136/82
[2021-12-29 05:47] LABS: HEMATOCRIT 26 % (40-54); HEMOGLOBIN 8.5 g/dL (13.3-17.7); MEAN CORPUSCULAR HEMOGLOBIN 27 pg (25-34); MEAN CORPUSCULAR HGB CONC 33 g/dL (32-36); MEAN CORPUSCULAR VOLUME 84 fL (80-99); MEAN PLATELET VOLUME 9.2 fL (9.0-12.2); PLATELET COUNT 284 10^3/uL (130-400); WHITE BLOOD COUNT 6.4 10^3/uL (4.3-11.0)
[2021-12-29] MEDS: inSUlin ASPART (NovoLOG) 1 UNIT/0.01 ML (CHARGE PER UNIT) SC SCH ×2 (06:05→10:46)
[2021-12-29] MEDS: MULTIVIT W/MINERALS TAB (THERAGRAN M) PO SCH (06:05)
[2021-12-29 06:10] LABS: ALBUMIN 3.2 GM/DL (3.2-4.5); BILIRUBIN,TOTAL 0.5 MG/DL (0.1-1.0); CALCIUM 9.5 MG/DL (8.5-10.1); CREATININE SERUM 0.75 MG/DL (0.60-1.30); POTASSIUM 4.1 MMOL/L (3.6-5.0); TOTAL PROTEIN 6.1 GM/DL (6.4-8.2)
[2021-12-29 07:48] VITALS: BP 132/69
[2021-12-29] MEDS: FOLIC ACID 1 MG TAB PO SCH (09:02)
[2021-12-29] MEDS: LACTOBACILLUS ACIDOPHILUS (PROBIOTIC) CAPSULE PO SCH (09:07)
[2021-12-29] MEDS: sulfaSALAzine 500 MG (AZULFIDINE) TAB PO SCH (09:07)
[2021-12-29] MEDS: ATENOLOL 25 MG (TENORMIN) TAB PO SCH (09:07)
[2021-12-29] MEDS: OMEGA 3 (FISH OIL) 1000 MG CAP PO SCH (09:07)
[2021-12-29] MEDS: CALCIUM CARB + VIT D 600 MG (CALCARB + D) TAB PO SCH (09:08)
[2021-12-29] MEDS: cefTRIAXone 1 GM PRE-MIX 50 ML IV SCH (09:09)
--- NOTE | 2021-12-29 10:03 | Discharge Summary ---
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 (5) Mixed hyperlipidemia (6) Primary hypertension (7) Coronary artery disease without angina pectoris Discharge Summary Discharge Physical Exam Allergies: Coded Allergies: Cttptgs-YLZ-MrP Reductase Inhibitor (Verified Allergy, Unknown, 12/13/21) Vitals & I&Os Vital Signs Date Time Temp Pulse Resp B/P (MAP) Pulse Ox O2 Delivery O2 Flow Rate FiO2 12/29/21 10:47 36.7 78 18 132/69 88 Nasal Cannula 2.00 General Appearance: No Apparent Distress, WD/WN Cardiovascular: Regular Rate, Rhythm, No Murmur Neurologic/Psychiatric: Alert, Oriented x3 Hospital Course Pt was admitted to the hospital secondary to generalized weakness due to urinary tract infection. He has a history of metastatic cancer and has recently been on chemotherapy but had to stop due to complications. He was treated with IV antibiotics and seen by physical therapy and Occupational Therapy he was deemed an appropriate candidate for inpatient rehab and was discharged there for continued intensive therapies. Labs (last 24 hrs) Laboratory Tests 12/28/21 11:00: Glucometer 170H 12/28/21 15:49: Glucometer 161H 12/28/21 20:24: Glucometer 160H 12/29/21 05:41: White Blood Count 6.4, Red Blood Count 3.10L, Hemoglobin 8.5L, Hematocrit 26L, Mean Corpuscular Volume 84, Mean Corpuscular Hemoglobin 27, Mean Corpuscular Hemoglobin Concent 33, Red Cell Distribution Width 15.5H, Platelet Count 284, Mean Platelet Volume 9.2, Sodium Level 128L, Potassium Level 4.1, Chloride Level 96L, Carbon Dioxide Level 21, Anion Gap 11, Blood Urea Nitrogen 10, Creatinine 0.75, Estimat Glomerular Filtration Rate 89, BUN/Creatinine Ratio 13, Glucose Level 146H, Calcium Level 9.5, Corrected Calcium 10.1, Total Bilirubin 0.5, Aspartate Amino Transf (AST/SGOT) 29, Alanine Aminotransferase (ALT/SGPT) 21, Alkaline Phosphatase 58, Total Protein 6.1L, Albumin 3.2 12/29/21 06:02: Glucometer 137H 12/29/21 10:22: Glucometer 179H Microbiology 12/27/21 Urine Culture - Final, Complete YEAST Patient resulted labs reviewed. Pending Labs Laboratory Tests 12/29/21 05:41: White Blood Count 6.4, Red Blood Count 3.10, Hemoglobin 8.5, Hematocrit 26, Mean Corpuscular Volume 84, Mean Corpuscular Hemoglobin 27, Mean Corpuscular Hemoglobin Concent 33, Red Cell Distribution Width 15.5, Platelet Count 284, Mean Platelet Volume 9.2, Sodium Level 128, Potassium Level 4.1, Chloride Level 96, Carbon Dioxide Level 21, Anion Gap 11, Blood Urea Nitrogen 10, Creatinine 0.75, Estimat Glomerular Filtration Rate 89, BUN/Creatinine Ratio 13, Glucose Level 146, Calcium Level 9.5, Corrected Calcium 10.1, Total Bilirubin 0.5, Aspartate Amino Transf (AST/SGOT) 29, Alanine Aminotransferase (ALT/SGPT) 21, Alkaline Phosphatase 58, Total Protein 6.1, Albumin 3.2 12/29/21 06:02: Glucometer 137 12/29/21 10:22: Glucometer 179 Imaging: Reviewed Imaging Report Discussion & Recommendations Discharge Planning: >30 minutes discharge planning Discharge Home Medications: Active Scripts Active Reported Atenolol 25 Mg Tablet 25 Mg PO DAILY Tresiba Flextouch U-200 (Insulin Degludec) 200 Unit/Ml (3 Ml) Insuln.pen 28 Units SC HS Ezetimibe 10 Mg Tablet 10 Mg PO HS Citracal + D ER Tablet (Calcium Carb & Citrate/Vit D3) 600MG-12.5 Tablet.er 1 Each PO BID Ibuprofen 200 Mg Tablet 600 Mg PO Q6H PRN Culturelle (Lactobacillus Rhamnosus GG) 10 Billion Cell Capsule 1 Each PO DAILY Sulfasalazine 500 Mg Tablet 500 Mg PO DAILY Aspirin EC (Aspirin) 81 Mg Tablet.dr 81 Mg PO HS Fish Oil 1,000 mg Softgel ([place]-3/Dha/Epa/Fish Oil) 1,000 Mg (120 Mg-180 Mg) Capsule 3,000 Mg PO BID TAKES 3 (1000MG) TABLETS Coq-10 (Ubidecarenone) 100 Mg Capsule 100 Mg PO DAILY Multivitamin 1 Each Tablet 1 Each PO DAILY Foltanx Tablet (Methyl-B12/l-Mefolate/B6 Phos) 2 Mg-3 Mg-35 Mg Tablet 1 Tab PO DAILY Flomax (Tamsulosin HCl) 0.4 Mg Cap 0.4 Mg PO HS Instructions to patient/family Please see electronic discharge instructions given to patient. Problem Qualifiers (1) Urinary tract infection: Urinary tract infection type: site unspecified Hematuria presence: without hematuria Qualified Codes: N39.0 - Urinary tract infection, site not specified ELIN LOCKETT MD Dec 29, 2021 10:03
[2021-12-29 10:47] VITALS: BP 132/69
[2021-12-29] MEDS ORDERED: fluCOnazole (DIFLUCAN) 100 MG TAB PO NR (11:00)
[2021-12-30] MEDS ORDERED: fluCOnazole (DIFLUCAN) 100 MG TAB PO SCH (09:00)
== END 2021-12-29 10:21 ==
LOC: EDUNIT# 05:59 → ER 06:01 → UNDOADMOB 09:14 → 4TH 09:14 → UNDODISOB 12-29 10:21
PROVIDERS: ADMIT Family Medicine; ATTEND Family Medicine
DX: N39.0 Urinary tract infection, site not specified (principal); R53.1 Weakness; E11.9 Type 2 diabetes mellitus without complications; E78.2 Mixed hyperlipidemia; I10 Essential (primary) hypertension; I25.10 Atherosclerotic heart disease of native coronary artery without angina pectoris; C61 Malignant neoplasm of prostate; C79.51 Secondary malignant neoplasm of bone; Z79.82 Long term (current) use of aspirin; Z79.899 Other long term (current) drug therapy
CPT/HCPCS: 70450; 71045; 80053 ×3; 81000; 82947 ×3; 83735; 84153; 85025; 85027 ×2; 86141; 87088; 93005; 96361; 96375; 96376 ×2; 97162; 97167; 97530 ×2; 97535; 99284; G0378; 36415

== ENCOUNTER 2021-12-29 10:50 | Inpatient (IN) | payer MEDICARE, OTHER ==
[~2021-12-29] VITALS: Ht 180 cm; Wt 105.6 kg
[~2021-12-29 10:50] MED LIST changes: +ACETAMINOPHEN 325 MG TABLET PO PRN; +ALPRAZolam 0.25 MG (XANAX) TAB PO PRN; +BISACODYL 10 MG SUPP (DULCOLAX) PR PRN; +CALCIUM CARBONATE 500 MG (TUMS) TAB.CHEW PO PRN; +DOCUSATE SODIUM 100 MG (COLACE) CAP PO PRN; +FLEET ENEMA ADULT 1 EA BTL PR PRN; +INSU200I4 SC; +LACTULOSE SYRUP 10GM/15ML (ENULOSE) 30ML UDC PO PRN; +LOPERAMIDE 2 MG (IMODIUM) TABLET PO PRN; +MELATONIN 3 MG TABLET PO PRN; +ONDANSETRON 4 MG (ZOFRAN) ORAL DISSOLVE TAB PO PRN; +diphenhydrAMINE 25 MG TAB (BENADRYL) PO PRN; +guaiFENesin/CODEINE (ROBITUSSIN AC) 10ML UDC PO PRN
--- NOTE | 2021-12-29 12:22 | PM&R Post Admission Assessment ---
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 Solares transferred from fourth floor after admitted on Thursday for UTI and weakness and unable to ambulate. Currently sleeping soundly with 8 family members around the bedside. His is reporting he is refusing to eat. Patient appears to be very declined and if it is assessed that he cannot participate in rehab we will be set up for shelter and hospice. [facility] HPI from 12/27/2021: Dr Fajardo Patient is an 86-year-old male with past medical history of insulin-dependent diabetes type 2, metastatic prostate cancer, hypertension who presented to the emergency department due to weakness. He was just admitted to the hospital a couple of weeks ago with pneumonia and syncope. He was discharged home with home health and had been working with them for strengthening as he had a long history of weakness prior to that admission. Despite working with home health PT/OT he has become more weak. His family has been unable to help him get around. He reports feeling "not worth a nickel" and "as weak as a cat." He was found to have a UTI and is being admitted for abx and PT/OT as he was unable to ambulate safely for DC home. 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 He was treated with IV antibiotics and improved. He will complete a course of oral Omnicef as an outpatient. He was requiring 2 L oxygen with activity and was set up with home oxygen. He was evaluated by Cardiology due to syncope and was found to have an atrial arrhythmia. He was set up with an external monitoring engineer on discharge. He will follow up with Dr. Mckenna in the cardiology office. He had issues with nausea and vomiting which delayed his discharge. This improved with antiemetics. He should follow up with his PCP in about a week. He was set up with home health care on discharge. Past Sfsqzyc-Xudmmu-Ikoedt Hx Past Med/Social Hx: Reviewed Nursing Past Med/Soc Hx, Reviewed and Corrections made Patient Social History Marrital Status: Employed/Student: retired Alcohol Use: Rarely Uses Smoking Status: Former Smoker Past Medical History Cardiac: Atrial Fibrillation, Hypertension Gastrointestinal: Chronic Constipation Endocrine: Diabetes, Insulin dep Cancer: Prostate What Type of Treatment Did You: Chemotherapy, Radiation Family History No Pertinent Family Hx PM&R Allergy/Meds/Data Review Allergies Coded Allergies: Higagrd-HEX-GjZ Reductase Inhibitor (Verified Allergy, Unknown, 12/13/21) Home Medications Scheduled Aspirin (Aspirin EC), 81 MG PO HS, (Reported) Atenolol (Atenolol), 25 MG PO DAILY, (Reported) Calcium Carb & Citrate/Vit D3 (Citracal + D ER Tablet), 1 EACH PO BID, (Reported) Ezetimibe (Ezetimibe), 10 MG PO HS, (Reported) Insulin Degludec (Tresiba Flextouch U-200), 28 UNITS SC HS, (Reported) Lactobacillus Rhamnosus GG (Culturelle), 1 EACH PO DAILY, (Reported) Methyl-B12/l-Mefolate/B6 Phos (Foltanx Tablet), 1 TAB PO DAILY, (Reported) Multivitamin (Multivitamin), 1 EACH PO DAILY, (Reported) [place]-3/Dha/Epa/Fish Oil (Fish Oil 1,000 mg Softgel), 3,000 MG PO BID, (R eported) Sulfasalazine (Sulfasalazine), 500 MG PO DAILY, (Reported) Tamsulosin HCl (Flomax), 0.4 MG PO HS, (Reported) Ubidecarenone (Coq-10), 100 MG PO DAILY, (Reported) Scheduled PRN Ibuprofen (Ibuprofen), 600 MG PO Q6H PRN for PAIN-MILD (1-4), (Reported) Discontinued Medications Apalutamide (Erleada), 240 MG PO DAILY, (Reported) Discontinued Reason: No Longer Taking Atenolol (Atenolol), 50 MG PO DAILY Discontinued Reason: Duplicate Order Cefdinir (Cefdinir), 300 MG PO BID Discontinued Reason: No Longer Taking Ezetimibe (Ezetimibe), 10 MG PO HS Discontinued Reason: Duplicate Order Insulin Degludec (Tresiba), 24 UNIT SQ HS, (Reported) Discontinued Reason: Duplicate Order Current Medications Current Medications Reviewed Review of Systems Constitutional: see HPI, malaise, weakness EENTM: no symptoms reported Respiratory: no symptoms reported Cardiovascular: no symptoms reported Gastrointestinal: no symptoms reported Genitourinary: no symptoms reported Musculoskeletal: back pain, joint pain, muscle pain, muscle stiffness, muscle cramps, muscle weakness Skin: no symptoms reported Psychiatric/Neurological: No Symptoms Reported All Other Systems Reviewed Negative Unless Noted: Yes Physical Exam Physical Exam Vital Signs Vital Signs - First Documented 12/29/21 11:02 O2 Delivery Nasal Cannula O2 Flow Rate 2.00 Capillary Refill : Height, Weight, BMI Height: '" Weight: lbs. oz. kg; 32.59 BMI Method: General Appearance: No Apparent Distress, WD/WN, Chronically ill, Obese, Other (Sleeping) Eyes: Bilateral Eye Normal Inspection, Bilateral Eye PERRL HEENT: Normal ENT Inspection Neck: Full Range of Motion, Normal Inspection, Non Tender, Supple, Carotid Bruit Respiratory: Chest Non Tender, Lungs Clear, Normal Breath Sounds, No Accessory Muscle Use, No Respiratory Distress Cardiovascular: Regular Rate, Rhythm, No Edema, No Gallop, No JVD, No Murmur, Normal Peripheral Pulses Gastrointestinal: Normal Bowel Sounds, No Organomegaly, No Pulsatile Mass, Non Tender, Soft Back: Normal Inspection, No CVA Tenderness, No Vertebral Tenderness Extremity: Normal Capillary Refill, Normal Inspection, Non Tender, No Calf Tend erness, No Pedal Edema Neurologic/Psychiatric: Alert, No Motor/Sensory Deficits, Depressed Affect, Motor Weakness (Generalized) Skin: Normal Color, Warm/Dry Lymphatic: No Adenopathy PM&R Medical Assessment & Plan REHAB/MEDICAL ASSESSMENT AND PLAN: REHAB IMPAIRMENT GROUP: Chemotherapy induced myopathy ETIOLOGIC DIAGNOSIS: Chemotherapy induced myopathy The comorbidities that impact the patients function and/or functional outcome by: Prostate cancer with mets, severe debility, encephalopathy, advanced age, atrial fibrillation REHAB PLAN: The patient is being admitted to our comprehensive inpatient rehabilitation facility and can tolerate the intensity of service consisting of at least: 180 minutes of therapy a day, 5 out of 7 days a week Rehab treatment will consist of: PT and OT will focus on assisting for ambulatory capability and helping increase independence in ADLs The patient/family has a good understanding of our discharge process and will benefit from an interdisciplinary inpatient rehabilitation program. The patient has potential to make improvement and is in need of at least two of the following multidisciplinary therapies including but not limited to physical, occupational, speech, and prosthetics and orthotics. Additionally the patient w ill need services from respiratory, nutritional services, wound care, psychology, etc. (Customize this to each patient). Given the patients complex condition and risk of further medical complications, rehabilitation services cannot be safely or effectively provided at a lower level of care such as a penitentiary facility. BARRIERS TO DISCHARGE: Advanced age and prostate cancer with mets ESTIMATED LOS: 10 days DISPOSITION: Home RELEVANT CHANGES SINCE PREADMISSION SCREENING: I have compared the patients medical and functional status at the time of the preadmission screening and there are: No changes PROGNOSIS: Fair REHABILITATION GOALS: 1. PT and OT will focus on assisting for ambulatory capability and helping increase independence in ADLs All the above goals were reviewed with the patient and he/she is in agreement. By signing this document, I acknowledge that I have personally performed a full physical examination on this patient within 24 hours of admission to this inpatient rehabilitation facility and have determined the patient to be able to tolerate the above course of treatment at an intensive level for a reasonable period of time. I will be completing a detailed individualized Plan of Care for this patient by day #4 of the patients stay based upon the Preadmission Screen, the Post-Admission Evaluation, and the therapy evaluations. 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
[2021-12-29] MEDS ORDERED: IBUPROFEN TABLET 200 MG TAB PO PRN (12:30)
[2021-12-29] MEDS: DOCUSATE SODIUM 100 MG (COLACE) CAP PO SCH ×2 (12:36→21:31)
[2021-12-29] MEDS: polyethylene glycoL POWDER 17 GM (MIRALAX) PACK PO SCH ×2 (12:36→22:10)
[2021-12-29] MEDS: SENNA W/DOCUSATE (SENOKOT S) TABLET PO SCH ×2 (12:37→21:31)
[2021-12-29] MEDS: inSUlin ASPART (NovoLOG) 1 UNIT/0.01 ML (CHARGE PER UNIT) SC SCH ×2 (15:37→22:09)
[2021-12-29 20:00] VITALS: BP 146/60
[2021-12-29] MEDS ORDERED: INSULIN DEGLUDEC 28 UNIT SC SCH (21:00)
[2021-12-29] MEDS ORDERED: eZETimibe 10 MG (ZETIA) TABLET PO SCH (21:00)
[2021-12-29] MEDS ORDERED: TAMSULOSIN 0.4 MG (FLOMAX) CAP PO SCH (21:00)
[2021-12-29] MEDS ORDERED: ASPIRIN E.C. 81 MG (ECOTRIN) TAB PO SCH (21:00)
[2021-12-29] MEDS: OMEGA 3 (FISH OIL) 1000 MG CAP PO SCH (21:31)
[2021-12-29] MEDS: CALCIUM CARB + VIT D 600 MG (CALCARB + D) TAB PO SCH (21:32)
[2021-12-30 05:22] LABS: BASOPHILS % (AUTO) 0 % (0-10); EOSINOPHILS % (AUTO) 0 % (0-10); HEMATOCRIT 25 % (40-54); HEMOGLOBIN 8.4 g/dL (13.3-17.7); LYMPHOCYTES % (AUTO) 23 % (12-44); MEAN CORPUSCULAR HEMOGLOBIN 28 pg (25-34); MEAN CORPUSCULAR HGB CONC 34 g/dL (32-36); MEAN CORPUSCULAR VOLUME 83 fL (80-99); MEAN PLATELET VOLUME 9.7 fL (9.0-12.2); MONOCYTES % (AUTO) 12 % (0-12); NEUTROPHILS # (AUTO) 5.5 10^3/uL (1.8-7.8); NEUTROPHILS % (AUTO) 65 % (42-75); PLATELET COUNT 277 10^3/uL (130-400); WHITE BLOOD COUNT 8.5 10^3/uL (4.3-11.0)
[2021-12-30 05:45] LABS: ALBUMIN 3.1 GM/DL (3.2-4.5); BILIRUBIN,TOTAL 0.6 MG/DL (0.1-1.0); CALCIUM 9.8 MG/DL (8.5-10.1); CREATININE SERUM 0.74 MG/DL (0.60-1.30); POTASSIUM 4.1 MMOL/L (3.6-5.0); TOTAL PROTEIN 5.9 GM/DL (6.4-8.2)
[2021-12-30] MEDS: inSUlin ASPART (NovoLOG) 1 UNIT/0.01 ML (CHARGE PER UNIT) SC SCH (05:46)
--- NOTE | 2021-12-30 06:04 | PM&R Progress Note ---
Subjective HPI/CC On Admission Date Seen by Provider: Dec 30, 2021 Time Seen by Provider: 08:30 Subjective/Events-last exam 12/30/2021: Review of Systems General: Fatigue, Malaise Neurological: Weakness, Confusion Objective Exam Vital Signs Vital Signs Date Time Temp Pulse Resp B/P (MAP) Pulse Ox O2 Delivery O2 Flow Rate FiO2 12/30/21 09:11 Nasal Cannula 2.00 12/30/21 08:20 79 22 70/46 (54) 95 12/30/21 08:00 36.0 Capillary Refill : General Appearance: No Apparent Distress, WD/WN, Chronically ill, Obese, Other (Sleeping) HEENT: Normal ENT Inspection Neck: Full Range of Motion, Normal Inspection, Non Tender, Supple, Carotid Bruit Respiratory: Chest Non Tender, Lungs Clear, Normal Breath Sounds, No Accessory Muscle Use, No Respiratory Distress Cardiovascular: Regular Rate, Rhythm, No Edema, No Gallop, No JVD, No Murmur, Normal Peripheral Pulses Gastrointestinal: Normal Bowel Sounds, No Organomegaly, No Pulsatile Mass, Non Tender, Soft Back: Normal Inspection, No CVA Tenderness, No Vertebral Tenderness Extremity: Normal Capillary Refill, Normal Inspection, Non Tender, No Calf Tend erness, No Pedal Edema Neurologic/Psychiatric: Alert, No Motor/Sensory Deficits, Depressed Affect, Motor Weakness (Generalized) Skin: Normal Color, Warm/Dry Lymphatic: No Adenopathy Results/Procedures Lab Laboratory Tests 12/30/21 04:55 Patient resulted labs reviewed. FIM Transfers Therapy Code Descriptions/Definitions Functional [place] Measure: 0=Not Assessed/NA 4=Minimal Assistance 1=Total Assistance 5=Supervision or Setup 2=Maximal Assistance 6=Modified [place] 3=Moderate Assistance 7=Complete IndependenceSCALE: Activities may be completed with or without assistive devices. 9-Cztwfaxwmd-aepqpuy completes the activity by him/herself with no assistance from a helper. 5-Set-up or Clean-up Assistance-helper sets up or cleans up; patient completes activity. [place] assists only prior to or following the activity. 4-Supervision or Touching Assistance-helper provides verbal cues and/or touching/steadying and/or contact guard assistance as patient completes activity. Assistance may be provided throughout the activity or intermittently. 3-Partial/Moderate Assistance-helper does LESS THAN HALF the effort. [place] lifts, holds or supports trunk or limbs, but provides less than half the effort. 2-Substantial/Maximal Assistance-helper does MORE THAN HALF the effort. [place] lifts or holds trunk or limbs and provides more than half the effort. 6-Olnvupenf-wkvoiq does ALL the effort. Patient does none of the effort to complete the activity. Or, the assistance of 2 or more helpers is required for the patient to complete the activity. If activity was not attempted, code reason: 7-Patient Refused. 9-Not Applicable-not attempted and the patient did not perform the activity before the current illness, exacerbation or injury. 10-Not Attempted due to Environmental Limitations-(lack of equipment, weather restraints, etc.). 88-Not Attempted due to Medical Conditions or Safety Concerns. 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
[2021-12-30 08:00] VITALS: BP 113/60
[2021-12-30] MEDS: polyethylene glycoL POWDER 17 GM (MIRALAX) PACK PO SCH (08:03)
[2021-12-30] MEDS: DOCUSATE SODIUM 100 MG (COLACE) CAP PO SCH (08:03)
[2021-12-30] MEDS: SENNA W/DOCUSATE (SENOKOT S) TABLET PO SCH (08:03)
[2021-12-30 08:20] VITALS: BP 70/46
--- NOTE | 2021-12-30 08:27 | Physical Therapy Evaluation ---
PT Evaluation-General Medical Diagnosis Admission Date Dec 29, 2021 at 10:50 Medical Diagnosis: Chemotherapy induced myopathy Onset Date: Dec 27, 2021 Therapy Diagnosis Therapy Diagnosis: impaired mobility, strength Precautions Precautions/Isolations: Fall Prevention, Standard Precautions Referral Physician: Kenzie Chawla DO Reason for Referral: Evaluation/Treatment Medical History Pertinent Medical History: DM, [place], Prostate CA Reviewed History: Yes Social History Home: Single Level Current Living Status: Spouse Entry Into Home: Stairs With Railing PT Steps Into Home: 4 Prior Prior Level of Function SCALE: Activities may be completed with or without assistive devices. 2-Dpnavpaady-iaqfiic completes the activity by him/herself with no assistance from a helper. 5-Set-up or Clean-up Assistance-helper sets up or cleans up; patient completes activity. [place] assists only prior to or following the activity. 4-Supervision or Touching Assistance-helper provides verbal cues and/or jose lizzy/steadying and/or contact guard assistance as patient completes activity. Assistance may be provided throughout the activity or intermittently. 3-Partial/Moderate Assistance-helper does LESS THAN HALF the effort. [place] lifts, holds or supports trunk or limbs, but provides less than half the effort. 2-Substantial/Maximal Assistance-helper does MORE THAN HALF the effort. [place] lifts or holds trunk or limbs and provides more than half the effort. 4-Qqnyxpzca-ryctug does ALL the effort. Patient does none of the effort to complete the activity. Or, the assistance of 2 or more helpers is required for the patient to complete the activity. If activity was not attempted, code reason: 7-Patient Refused. 9-Not Applicable-not attempted and the patient did not perform the activity before the current illness, exacerbation or injury. 10-Not Attempted due to Environmental Limitations-(lack of equipment, weather restraints, etc.). 88-Not Attempted due to Medical Conditions or Safety Concerns. Indoor Mobility (Ambulation): Needed Some Help Stairs: Needed Some Help Progressive weakness over the last 2 weeks. PT Evaluation-Current Subjective Patient in bed pre tx, has unrated pain in right arm, agrees to PT. Will be co- treating with OT for part of tx due to poor patient mobility, strength, endurance, severe debility, coordinate UE and LE during activity, safety and reduce risk of falls. Patient has slurred speech. Pain Section J - Health Conditions 1. Rarely or not at all 2. Occasionally 3. Frequently 4. Almost constantly 8. Unable to answer Pain Effect on Sleep: 8 Pain Interference with Therapy: 8 Pain Interference w/Day-to-Day: 8 Pt/Family Goals none stated Objective Patient Orientation: Person, Confused Attachments: Oxygen ROM/Strength ROM Lower Extremities limited due to pain Strength Lower Extremities Patient can only slightly move his right leg, has dorsiflexion but not full ROM. Neuromuscular (Tone, Coordination, Reflexes) Patient cannot move his left arm, tested normal clonus on the right ankle, has right side mouth droop Sensory Vision: Functional Hearing: Functional Sensation Right Lower Extremit: Impaired Sensation Left Lower Extremity: Impaired Assessment/Needs Patient in bed post tx with nurse call, phone, tray, all needs met. Tx and evaluation stopped because of low BP (84/46), O2 94%, HR 72 bpm. Nurse notified of low BP. Rehab Potential: Poor PT Prison Goals Prison Goals Scoring Section J - Health Conditions 1. Rarely or not at all 2. Occasionally 3. Frequently 4. Almost constantly 8. Unable to answer PT Plan Problem List Problem List: Activity Tolerance, Functional Strength, Safety, Balance, Gait, Transfer, Bed Mobility, ROM Treatment/Plan Treatment Plan: Continue Plan of Care Treatment Plan: Bed Mobility, Education, Functional Activity [place], Functional Strength, Group Therapy, Gait, Safety, Therapeutic Exercise, Transfers Treatment Duration: Jan 20, 2022 Frequency: At least 5 of 7 days/Wk (IRF) Estimated Hrs Per Day: 1.5 hours per day Patient and/or Family Agrees t: Yes Safety Risks/Education Patient Education: Correct Positioning, Safety Issues Teaching Recipient: Patient Teaching Methods: Demonstration, Discussion Response to Teaching: Reinforcement Needed Discharge Recommendations Plan Patient will perform bed mobility and transfer training, balance and endurance training, functional strengthening, stair training, gait training, and education, to improve functional mobility and independence at home. Therapy Discharge Recommendati: Other, See Comments (NH) Time/GCodes Time In: 0800 Time Out: 819 Total Billed Treatment Time: 20 Total Billed Treatment 1 visit EVM 10' TX 10' (no charge) PT eval from [id number], co-treat from [id number] AUDREY GARCIA PT Dec 30, 2021 08:27
--- NOTE | 2021-12-30 08:27 | Occupational Therapy Eval ---
OT Evaluation-General/PLF Medical Diagnosis Admission Date Dec 29, 2021 at 10:50 Medical Diagnosis: debility/weakness Onset Date: Dec 27, 2021 Therapy Diagnosis Therapy Diagnosis: decreased ADL status, impaired RUE function Precautions Precautions/Isolations: Fall Prevention, Standard Precautions Referral Physician: Denton Velez Reason: Evaluation/Treatment Medical History Pertinent Medical History: DM, [place], Prostate CA Additional Medical History DM, metastatic prostate cancer, HTN Current History ED with weakness, found to have UTI. Pt admitted to ARU 12/29/21 for skilled therapy and medication management. Social History Home: Single Level Current Living Status: Spouse Entry Into Home: Stairs With Railing Steps Into Home: 4 ADL-Prior Level of Function SCALE: Activities may be completed with or without assistive devices. 2-Fsbwxostjl-dbipmjz completes the activity by him/herself with no assistance from a helper. 5-Set-up or Clean-up Assistance-helper sets up or cleans up; patient completes activity. [place] assists only prior to or following the activity. 4-Supervision or Touching Assistance-helper provides verbal cues and/or touching/steadying and/or contact guard assistance as patient completes activity. Assistance may be provided throughout the activity or intermittently. 3-Partial/Moderate Assistance-helper does LESS THAN HALF the effort. [place] lifts, holds or supports trunk or limbs, but provides less than half the effort. 2-Substantial/Maximal Assistance-helper does MORE THAN HALF the effort. [place] lifts or holds trunk or limbs and provides more than half the effort. 3-Mujwelzgj-fgugvb does ALL the effort. Patient does none of the effort to complete the activity. Or, the assistance of 2 or more helpers is required for the patient to complete the activity. If activity was not attempted, code reason: 7-Patient Refused. 9-Not Applicable-not attempted and the patient did not perform the activity before the current illness, exacerbation or injury. 10-Not Attempted due to Environmental Limitations-(lack of equipment, weather restraints, etc.). 88-Not Attempted due to Medical Conditions or Safety Concerns. ADL PLOF Comments Pt's reports pt was independent with ADLS and functional mobility using FWW prior to a couple of months ago. Over the last month, has been assisting with footwear, LE dressing and ADLs as needed. They have a walk in shower with [place] Self Care: Needed Some Help Functional Cognition: Needed Some Help DME/Equipment: Bath Chair, Shower OT Current Status Subjective Pt in bed, at bedside assisting pt with feeding. Pt agreeable to OT eval/tx. Pt's BP 86/46, so treatment terminated and nurse notified. Mental Status/Objective Patient Orientation: Person Attachments: Oxygen (2L) Current Hand Dominance: Right Upper Extremity ROM Decreased bilaterally. Trace AROM RUE, WFL PROM but pt c/o increased pain with movement. LUE shoulder flexion to approx 80 degrees. Upper Extremity Coordination Decreased bilaterally Upper Extremity Sensation WFL, pt denies tingling/numbness BUEs Upper Extremity Strength RUE grossly 1/5, LUE grossly 3-/5 ADL-Treatment Eating (QC): 2 (Max A with breakfast) Lower Body Dressing (QC): 1 (Per clincial judgment) On/Off Footwear (QC): 1 (Per clincial judgment) Toileting Hygiene (QC): 1 (Per clincial judgment) Other Treatments OT evaluation complete [id number], PT eval [id number], [place] [id number] due to skill of 2 clinicians required that a analytical tech could not perform, in order to coordinate UE/LEs, decrease fall risk, and due to pt's limitations in strength, mobility, activity tolerance, transfers. OT focused on ADLs, UE placement, PT focused on LE placement and gross overall movement. Pt's feeding pt, max A overall for portion of meal pt ate. Pt was able to picking table worker sausage with L hand and bring to mouth in order to take 1 bite, this is the only bite pt fed hims elf. BP taken, 84/46. Pt unsafe to participate in skilled therapy at this time, nurse notified of pt's vitals. OT will attempt to perform tx and finish evaluation again later if pt is more medically stable. Education OT Patient Education: Correct positioning, Energy conservation, Modified ADL techniques, Progress toward Goal/Update tx plan, Purpose of tx/functional activities, Rehab process Teaching Recipient: Patient Teaching Methods: Discussion Response to Teaching: Verbalize Understanding BIMS CAM CAM Mental Status Change/Baseline: 0 Inattention: 0 Disorganized thinkin Altered level of consciousness: 0 OT [place] Goals Alf Goals 1=Demonstrate adherence to instructed precautions during ADL tasks. 2=Patient will verbalize/demonstrate understanding of assistive devices/modifications for ADL. 3=Patient will improve strength/tolerance for activity to enable patient to perform ADL's. OT Education/Plan Problem List/Assessment Assessment: Decreased Activ Tolerance, Decreased UE Strength, Dependent Transfers, Impaired Bed Mobility, Impaired Cognition, Impaired Coordination, Impaired Funct Balance, Impaired I ADL's, Impaired Self-Care Skills, Restricted Funct UE ROM Treatment Plan/Plan of Care Patient would benefit from OT for education, treatment and training to promote independence in ADL's, mobility, safety and/or upper extremity function for ADL's. SESAR MORROW OT Dec 30, 2021 08:27
[2021-12-30] MEDS ORDERED: LACTOBACILLUS ACIDOPHILUS (PROBIOTIC) CAPSULE PO SCH (09:00)
[2021-12-30] MEDS ORDERED: MULTIVIT W/MINERALS TAB (THERAGRAN M) PO SCH (09:00)
[2021-12-30] MEDS ORDERED: ATENOLOL 25 MG (TENORMIN) TAB PO SCH (09:00)
[2021-12-30] MEDS ORDERED: NON-FORMULARY MEDICATION 1 EA EA (Ubidecarenone (Coq-10) 100 MG) PO SCH (09:00)
[2021-12-30] MEDS ORDERED: sulfaSALAzine 500 MG (AZULFIDINE) TAB PO SCH (09:00)
--- NOTE | 2021-12-30 09:08 | Discharge Summary ---
Diagnosis/Chief Complaint Date of Admission Dec 29, 2021 at 10:50 Date of Discharge Discharge Date: Dec 30, 2021 Discharge Diagnosis Assessment: Chemotherapy induced myopathy Encephalopathy Prostate cancer with widespread metastasis Advanced age UTI Plan: Move to 4th floor for end of life care Discharge Summary Discharge Physical Examination Allergies: Coded Allergies: [id number] Reductase Inhibitor (Verified Allergy, Unknown, 12/13/21) Vitals & I&Os Vital Signs Date Time Temp Pulse Resp B/P (MAP) Pulse Ox O2 Delivery O2 Flow Rate FiO2 12/30/21 09:11 Nasal Cannula 2.00 12/30/21 08:20 79 22 70/46 (54) 95 12/30/21 08:00 36.0 Hospital Course Was the Problem List Reviewed?: Yes Short course after admitted from 4th floor for weakness from chemotherapy- induced myopathy but it became apparent he was not able to participate in therapy due to end of life status with hypotension and family in agreement from 4th floor transfer and begin end of life care. Labs (last 24 hrs) Laboratory Tests 12/29/21 20:23: Glucometer 163H 12/30/21 02:45: Glucometer 149H 12/30/21 04:55: White Blood Count 8.5, Red Blood Count 3.01L, Hemoglobin 8.4L, Hematocrit 25L, Mean Corpuscular Volume 83, Mean Corpuscular Hemoglobin 28, Mean Corpuscular Hemoglobin Concent 34, Red Cell Distribution Width 15.5H, Platelet Count 277, Mean Platelet Volume 9.7, Immature Granulocyte % (Auto) 1, Neutrophils (%) (Auto) 65, Lymphocytes (%) (Auto) 23, Monocytes (%) (Auto) 12, Eosinophils (%) (Auto) 0, Basophils (%) (Auto) 0, Neutrophils # (Auto) 5.5, Lymphocytes # (Auto) 2.0, Monocytes # (Auto) 1.0, Eosinophils # (Auto) 0.0, Basophils # (Auto) 0.0, Immature Granulocyte # (Auto) 0.0, Sodium Level 128L, Potassium Level 4.1, Chloride Level 94L, Carbon Dioxide Level 21, Anion Gap 13, Blood Urea Nitrogen 10, Creatinine 0.74, Estimat Glomerular Filtration Rate 89, BUN/Creatinine Ratio 14, Glucose Level 146H, Calcium Level 9.8, Corrected Calcium 10.5H, Total Bilirubin 0.6, Aspartate Amino Transf (AST/SGOT) 33, Alanine Aminotransferase (ALT/SGPT) 25, Alkaline Phosphatase 69, Total Protein 5.9L, Albumin 3.1L Pending Labs Laboratory Tests 12/29/21 20:23: Glucometer 163 12/30/21 02:45: Glucometer 149 12/30/21 04:55: White Blood Count 8.5, Red Blood Count 3.01, Hemoglobin 8.4, Hematocrit 25, Mean Corpuscular Volume 83, Mean Corpuscular Hemoglobin 28, Mean Corpuscular Hemoglobin Concent 34, Red Cell Distribution Width 15.5, Platelet Count 277, Mean Platelet Volume 9.7, Immature Granulocyte % (Auto) 1, Neutrophils (%) (Auto) 65, Lymphocytes (%) (Auto) 23, Monocytes (%) (Auto) 12, Eosinophils (%) (Auto) 0, Basophils (%) (Auto) 0, Neutrophils # (Auto) 5.5, Lymphocytes # (Auto) 2.0, Monocytes # (Auto) 1.0, Eosinophils # (Auto) 0.0, Basophils # (Auto) 0.0, Immature Granulocyte # (Auto) 0.0, Sodium Level 128, Potassium Level 4.1, Chloride Level 94, Carbon Dioxide Level 21, Anion Gap 13, Blood Urea Nitrogen 1 0, Creatinine 0.74, Estimat Glomerular Filtration Rate 89, BUN/Creatinine Ratio 14, Glucose Level 146, Calcium Level 9.8, Corrected Calcium 10.5, Total Bilirubin 0.6, Aspartate Amino Transf (AST/SGOT) 33, Alanine Aminotransferase (ALT/SGPT) 25, Alkaline Phosphatase 69, Total Protein 5.9, Albumin 3.1 Discharge Home Medications: Active Scripts Active Reported Flomax (Tamsulosin HCl) 0.4 Mg Cap 0.4 Mg PO HS Instructions to patient/family Please see electronic discharge instructions given to patient. 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
[2021-12-30] MEDS: OMEGA 3 (FISH OIL) 1000 MG CAP PO SCH (09:19)
[2021-12-30] MEDS: CALCIUM CARB + VIT D 600 MG (CALCARB + D) TAB PO SCH (09:19)
--- NOTE | 2021-12-30 09:37 | Speech Therapy Progress Note ---
Therapy Progress Note The patient will discharge from the acute rehabilitation unit prior to evaluation from speech pathology. Speech pathology to discharge the patient from skilled services at this time. DAMON TOBIAS Dec 30, 2021 09:37
== END 2021-12-30 09:25 | disposition short-term general hospital (02) | DRG 92 ==
PROVIDERS: ADMIT Internal Medicine; ATTEND Internal Medicine
DX: G72.0 Drug-induced myopathy (principal); C79.9 Secondary malignant neoplasm of unspecified site; G93.40 Encephalopathy, unspecified; E11.9 Type 2 diabetes mellitus without complications; C61 Malignant neoplasm of prostate; I10 Essential (primary) hypertension; K59.09 Other constipation; Z66 Do not resuscitate; Z87.891 Personal history of nicotine dependence; Z88.8 Allergy status to other drugs, medicaments and biological substances; Z79.82 Long term (current) use of aspirin; Z79.4 Long term (current) use of insulin; Z79.899 Other long term (current) drug therapy; T45.1X5D Adverse effect of antineoplastic and immunosuppressive drugs, subsequent encounter
CPT/HCPCS: 36415; 80053; 82947; 85025

== ENCOUNTER 2021-12-30 09:13 | Inpatient (IN) | payer MEDICARE, OTHER ==
[~2021-12-30] VITALS: Ht 180 cm; Wt 105.6 kg
[~2021-12-30 09:13] MED LIST changes: -ACETAMINOPHEN 325 MG TABLET PO PRN; -ALPRAZolam 0.25 MG (XANAX) TAB PO PRN; -BISACODYL 10 MG SUPP (DULCOLAX) PR PRN; -CALCIUM CARBONATE 500 MG (TUMS) TAB.CHEW PO PRN; -DOCUSATE SODIUM 100 MG (COLACE) CAP PO PRN; -FLEET ENEMA ADULT 1 EA BTL PR PRN; -LACTULOSE SYRUP 10GM/15ML (ENULOSE) 30ML UDC PO PRN; -LOPERAMIDE 2 MG (IMODIUM) TABLET PO PRN; -MELATONIN 3 MG TABLET PO PRN; -ONDANSETRON 4 MG (ZOFRAN) ORAL DISSOLVE TAB PO PRN; -diphenhydrAMINE 25 MG TAB (BENADRYL) PO PRN; -guaiFENesin/CODEINE (ROBITUSSIN AC) 10ML UDC PO PRN
[2021-12-30] MEDS ORDERED: LORazepam 1 MG (ATIVAN) TAB SL PRN (10:15)
[2021-12-30] MEDS ORDERED: GLYCOPYRROLATE 0.2 MG/ML (ROBINUL) 2 ML VIAL IV PRN (10:15)
[2021-12-30] MEDS ORDERED: BISACODYL 10 MG SUPP (DULCOLAX) PR PRN (10:15)
[2021-12-30] MEDS ORDERED: SALIVA STIMULANT MOUTH SPRAY (BIOTENE) 1.5 OZ MM PRN (10:15)
[2021-12-30] MEDS ORDERED: PROMETHAZINE INJ 25 MG/ML (PHENERGAN) AMP IVP PRN (10:15)
[2021-12-30] MEDS ORDERED: ONDANSETRON 4 MG/2 ML (SDV) Z0FRAN IVP PRN (10:15)
[2021-12-30] MEDS ORDERED: ACETAMINOPHEN 650 MG SUPP (TYLENOL) PR PRN (10:15)
[2021-12-30] MEDS ORDERED: ARTIFICAL TEARS 0.4 ML UNIT DOSE (REFRESH PLUS) OU PRN (10:15)
[2021-12-30] MEDS ORDERED: RT-ALBUTEROL/IPRATROPIUM 3 ML (DUONEB) VIAL INH PRN (10:15)
[2021-12-30] MEDS ORDERED: LIDOCAINE UROJET 2% GEL 10 ML PKG TOP NR (10:30)
--- NOTE | 2021-12-30 10:53 | History & Physical ---
SHIMA LITTLE 12/30/21 1053: History of Present Illness History of Present Illness Reason for visit/HPI End of life care HPI: Royal Ambrose, 86 YO M, with hx of insulin-dependent type 2 diabetes, metastatic prostate cancer, and hypertension presented to ED on 12/27 due to weakness. He was found to have a UTI and was admitted for IV abx and PT/OT. He was moved to rehab floor, on 12/29, for PT secondary to chemotherapy induced myopathy. However, due to his significant weakness, increasing confusion, and hypotension he has been moved back to the floor for end of life care. Family and patient are on board with this plan. We will keep the patient comfortable while developing plan for hospice/palliative care. He has not been eating or drinking normally and had several diarrhea stools this morning. He reports being pain free other than his right arm, which is primarily immobile due to weakness. He denies chest pain, shortness of breath, abdominal pain, nausea, vomiting, or any other sx. He is currently on 2L of O2. Date of Admission Dec 30, 2021 at 10:12 Date Seen by a Provider: Dec 30, 2021 Time Seen by a Provider: 08:55 I consulted on this patient on 12/30/21 10:37 Attending Physician No,Local Physician Admitting Physician Admitting Physician: Kenzie Wells DO Attending Physician: Kenzie Wells DO Consult Allergies and Home Medications Allergies Coded Allergies: [id number]-TuW Reductase Inhibitor (Verified Allergy, Unknown, 12/13/21) Patient Home Medication List Home Medication List Reviewed: Yes Tamsulosin HCl (Flomax) 0.4 Mg Cap, 0.4 MG PO HS, (Reported) Entered as Reported by: Evelyn Colon on 12/14/21 0905 Discontinued Medications Apalutamide (Erleada) 60 Mg Tablet, 240 MG PO DAILY, (Reported) Discontinued Reason: No Longer Taking Entered as Reported by: Evelyn Colon on 12/14/21 0917 Aspirin (Aspirin EC) 81 Mg Tablet.dr, 81 MG PO HS, (Reported) Entered as Reported by: Evelyn Colon on 12/14/21 0916 Atenolol (Atenolol) 25 Mg Tablet, 50 MG PO DAILY Discontinued Reason: Duplicate Order Prescribed by: KEM FERNÁNDEZ JR, MD on 12/17/21 1428 Atenolol (Atenolol) 25 Mg Tablet, 25 MG PO DAILY, (Reported) Entered as Reported by: BHAVIN LAO on 12/27/21 1506 Calcium Carb & Citrate/Vit D3 (Citracal + D ER Tablet) 600MG-12.5 Tablet.er, 1 EACH PO BID, (Reported) Entered as Reported by: KARI BILLS on 12/16/21 1309 Cefdinir (Cefdinir) 300 Mg Capsule, 300 MG PO BID Discontinued Reason: No Longer Taking Prescribed by: CINDI SANFORD on 12/17/21 1134 Ezetimibe (Ezetimibe) 10 Mg Tablet, 10 MG PO HS Discontinued Reason: Duplicate Order Prescribed by: CINDI SANFORD on 12/17/21 1134 Ezetimibe (Ezetimibe) 10 Mg Tablet, 10 MG PO HS, (Reported) Entered as Reported by: BHAVIN LAO on 12/27/21 1506 Ibuprofen (Ibuprofen) 200 Mg Tablet, 600 MG PO Q6H PRN for PAIN-MILD (1-4), (R eported) Entered as Reported by: KARI BILLS on 12/16/21 1309 Insulin Degludec (Tresiba) 100 Unit/Ml Vial, 24 UNIT SQ HS, (Reported) Discontinued Reason: Duplicate Order Entered as Reported by: Evelyn Colon on 12/14/21 0917 Insulin Degludec (Tresiba Flextouch U-200) 200 Unit/Ml (3 Ml) Insuln.pen, 28 UNITS SC HS, (Reported) Entered as Reported by: BHAVIN LAO on 12/27/21 1506 Lactobacillus Rhamnosus GG (Culturelle) 10 Billion Cell Capsule, 1 EACH PO DAILY, (Reported) Entered as Reported by: KARI BILLS on 12/16/21 1309 Methyl-B12/l-Mefolate/B6 Phos (Foltanx Tablet) 2 Mg-3 Mg-35 Mg Tablet, 1 TAB PO DAILY, (Reported) Entered as Reported by: Evelyn Colon on 12/14/21 0908 Multivitamin (Multivitamin) 1 Each Tablet, 1 EACH PO DAILY, (Reported) Entered as Reported by: Evelyn Colon on 12/14/21 0913 Haviland-3/Dha/Epa/Fish Oil (Fish Oil 1,000 mg Softgel) 1,000 Mg (120 Mg-180 Mg) Capsule, 3,000 MG PO BID, (Reported) Entered as Reported by: Evelyn Colon on 12/14/21914 Sulfasalazine (Sulfasalazine) 500 Mg Tablet, 500 MG PO DAILY, (Reported) Entered as Reported by: Evelyn Colon on 12/14/21917 Ubidecarenone (Coq-10) 100 Mg Capsule, 100 MG PO DAILY, (Reported) Entered as Reported by: Evelyn Colon on 12/14/21913 Past Jfilpkw-Geumaq-Mfuleu Hx Patient Social History Marrital Status: Smoking Status: Unknown if Ever Smoked Immunizations Up To Date First/Initial COVID19 Vaccinat: 2020 Second COVID19 Vaccination Alvarez: 2020 Tetanus Booster (TDap): Unknown Hepatitis A: No Hepatitis B: No Current Status Primary Language: Palauan Past Medical History Currently Using CPAP: No Currently Using BIPAP: No Atrial Fibrillation, Hypertension Chronic Constipation Diabetes, Insulin dep Prostate (metastatic) What Type of Treatment Did You: Chemotherapy, Radiation Family Medical History No Pertinent Family Hx Review of Systems Constitutional: No chills, No diaphoresis; malaise, weakness EENTM: No blurred vision, No double vision Respiratory: No cough, No short of breath Cardiovascular: No chest pain Gastrointestinal: No abdominal pain; diarrhea, loss of appetite; No nausea, No vomiting Genitourinary: No dysuria Musculoskeletal: muscle weakness Skin: No pruritus, No rash Psychiatric/Neurological: Other (mildly confused) Physical Exam Vital Signs Capillary Refill : Height, Weight, BMI Height: '" Weight: lbs. oz. kg; 32.59 BMI Method: General Appearance: No Apparent Distress, Chronically ill Eyes: Bilateral Eye PERRL, Bilateral Eye EOMI HEENT: PERRL/EOMI, Pharynx Normal Neck: Non Tender, Supple Respiratory: Lungs Clear; No No Accessory Muscle Use, No No Respiratory Distress; Decreased Breath Sounds Cardiovascular: Regular Rate, Rhythm, No Edema, No JVD, Normal Peripheral Pulses Gastrointestinal: Normal Bowel Sounds, Non Tender, Soft; No Distended Back: No CVA Tenderness Extremity: No Calf Tenderness, No Pedal Edema, Other (right arm pain with movement and decreased strength ) Neurologic/Psychiatric: Disoriented (mildly, he is still able to answer questi ons. ); No Facial Droop; Motor Weakness (generalized. RUE more weak than LUE); No Sensory Deficit; Other (Mildly confused. Oriented to place and perosn. Mild slurred speech, which has increased per . Somewhat difficult to understand. ) Skin: Warm/Dry, Pallor Lymphatic: No Adenopathy Assessment/Plan Assessment and Plan Assessment: Chemotherapy induced myopathy Debility and weakness - increasing, failed rehab Prostate cancer with widespread metastasis Decreased appetite Insulin dependent type 2 diabetes HTN - although he has been hypotensive while on rehab floor HLD Plan: End of life care. Will have social media marketing analyst team on board to assist with hospice. Monitor labs Supportive care DNR status Admission Diagnosis Admission Status: Other (Hospice) Reason for Inpatient Admission: End of life care KENZIE WELLS DO 12/31/21 0545: Allergies and Home Medications Allergies Coded Allergies: Mwkovox-HLE-WrE Reductase Inhibitor (Verified Allergy, Unknown, 12/13/21) Patient Home Medication List Tamsulosin HCl (Flomax) 0.4 Mg Cap, 0.4 MG PO HS, (Reported) Entered as Reported by: Evelyn Colon on 12/14/21 0905 Discontinued Medications Apalutamide (Erleada) 60 Mg Tablet, 240 MG PO DAILY, (Reported) Discontinued Reason: No Longer Taking Entered as Reported by: Evelyn Colon on 12/14/21 0917 Aspirin (Aspirin EC) 81 Mg Tablet.dr, 81 MG PO HS, (Reported) Entered as Reported by: Evelyn Colon on 12/14/21 0916 Atenolol (Atenolol) 25 Mg Tablet, 50 MG PO DAILY Discontinued Reason: Duplicate Order Prescribed by: KEM FERNÁNDEZ JR, MD on 12/17/21 1428 Atenolol (Atenolol) 25 Mg Tablet, 25 MG PO DAILY, (Reported) Entered as Reported by: BHAVIN LAO on 12/27/21 1506 Calcium Carb & Citrate/Vit D3 (Citracal + D ER Tablet) 600MG-12.5 Tablet.er, 1 EACH PO BID, (Reported) Entered as Reported by: KARI BILLS on 12/16/21 1309 Cefdinir (Cefdinir) 300 Mg Capsule, 300 MG PO BID Discontinued Reason: No Longer Taking Prescribed by: CINDI SANFORD on 12/17/21 1134 Ezetimibe (Ezetimibe) 10 Mg Tablet, 10 MG PO HS Discontinued Reason: Duplicate Order Prescribed by: CINDI SANFORD on 12/17/21 1134 Ezetimibe (Ezetimibe) 10 Mg Tablet, 10 MG PO HS, (Reported) Entered as Reported by: BHAVIN LAO on 12/27/21 1506 Ibuprofen (Ibuprofen) 200 Mg Tablet, 600 MG PO Q6H PRN for PAIN-MILD (1-4), (Reported) Entered as Reported by: KARI BILLS on 12/16/21 1309 Insulin Degludec (Tresiba) 100 Unit/Ml Vial, 24 UNIT SQ HS, (Reported) Discontinued Reason: Duplicate Order Entered as Reported by: Evelyn Colon on 12/14/21 0917 Insulin Degludec (Tresiba Flextouch U-200) 200 Unit/Ml (3 Ml) Insuln.pen, 28 UNITS SC HS, (Reported) Entered as Reported by: BHAVIN LAO on 12/27/21 1506 Lactobacillus Rhamnosus GG (Culturelle) 10 Billion Cell Capsule, 1 EACH PO DAILY, (Reported) Entered as Reported by: KARI BILLS on 12/16/21 1309 Methyl-B12/l-Mefolate/B6 Phos (Foltanx Tablet) 2 Mg-3 Mg-35 Mg Tablet, 1 TAB PO DAILY, (Reported) Entered as Reported by: Evelyn Colon on 12/14/21 0908 Multivitamin (Multivitamin) 1 Each Tablet, 1 EACH PO DAILY, (Reported) Entered as Reported by: Evelyn Colon on 12/14/21 0913 Haviland-3/Dha/Epa/Fish Oil (Fish Oil 1,000 mg Softgel) 1,000 Mg (120 Mg-180 Mg) Capsule, 3,000 MG PO BID, (Reported) Entered as Reported by: Evelyn Colon on 12/14/21 0915 Sulfasalazine (Sulfasalazine) 500 Mg Tablet, 500 MG PO DAILY, (Reported) Entered as Reported by: Evelyn Colon on 12/14/21 0918 Ubidecarenone (Coq-10) 100 Mg Capsule, 100 MG PO DAILY, (Reported) Entered as Reported by: Evelyn Colon on 12/14/21 0914 Past Atrdvlo-Rqtmwu-Ebovdm Hx Patient Social History Marrital Status: Employed/Student: retired Past Medical History High Cholesterol, Hypertension Arthritis Prostate (metastatic) Review of Systems Constitutional: see HPI Physical Exam General Appearance: Chronically ill, Obese, Other (confused, declined) Respiratory: Decreased Breath Sounds Cardiovascular: Regular Rate, Rhythm, No Edema Assessment/Plan Assessment and Plan End of life care Admission Diagnosis Admission Status: Inpatient Order (span 2 midnights) (Hospice) Reason for Inpatient Admission: end of life Supervisory-Addendum Brief Verification & Attestation Participated in pt care: history, MDM, physical Personally performed: exam, history, MDM, supervision of care Care discussed with: Medical Student Procedures: n/a Results interpretation: Verified all documentation Verification and Attestation of Medical Student E/M Service A medical student performed and documented this service in my presence. I reviewed and verified all information documented by the medical student and made modifications to such information, when appropriate. I personally performed the physical exam and medical decision making. Kenzie Wells, Dec 31, 2021,05:43 SHIMA LITTLE Dec 30, 2021 10:53 KENZIE WELLS DO Dec 31, 2021 05:45
[2021-12-30] MEDS: SCOPOLAMINE 1.5 MG (TRANSDERM-SCOP) PATCH TOP SCH (10:58)
[2021-12-30] MEDS: morphine INJ 4 MG/ML 1 ML (VIAL/SYRINGE) IV PRN (22:41)
[2021-12-31] MEDS ORDERED: SCOPOLAMINE PATCH REMOVAL TP SCH (10:29)
--- NOTE | 2021-12-31 11:10 | Progress Note ---
SHIMA LITTLE 12/31/21 1110: Subjective Date Seen by a Provider: Dec 31, 2021 Time Seen by a Provider: 08:45 Subjective/Events-last exam Pt is resting with family at bedside. States he has some right arm pain, that was controlled well last night with morphine however increases with movement. states he only had x 2 ensures yesterday and otherwise isn't eating due to decreased appetite. He had diarrhea yesterday and some pain with wiping. believes he is doing slightly better today, although his mentation and speech have not improved. He denies fever, chills, chest pain, nausea, vomiting, abdominal pain, or any other complaints at this time. Anderson catheter in place. Review of Systems General: No Chills, No Night Sweats HEENT: No Visual Changes Pulmonary: No Dyspnea, No Cough Cardiovascular: No: Chest Pain Gastrointestinal: Diarrhea; No: Nausea, Vomiting, Abdominal Pain Genitourinary: No Retention Musculoskeletal: arm pain (right ) Neurological: Weakness (generalized ), Change in speech; No: Numbness Objective Exam Last Set of Vital Signs Vital Signs Date Time Temp Pulse Resp B/P (MAP) Pulse Ox O2 Delivery O2 Flow Rate FiO2 12/31/21 07:53 Nasal Cannula 2.00 Capillary Refill : I&O Intake and Output 12/31/21 00:00 Intake Total 750 ml Output Total 375 ml Balance 375 ml Intake Oral 750 ml Output Urine Total 375 ml # Bowel Movements 2 Daily Weight Change Unsure General: Cooperative, No Acute Distress, Other (Pt is sleepy but answers questions. He is somewhat difficult to understand due to changes in speech. ) HEENT: Atraumatic, EOMI Neck: Supple Lungs: Other (decreased breath sounds ) Heart: Regular Rate, Normal S1, Normal S2 Abdomen: Normal Bowel Sounds, Soft, No Tenderness Extremities: No Clubbing, No Edema, Normal Pulses, Other (right arm pain ) Skin: No Rashes Neuro: Sensation Intact Psych/Mental Status: Other ( states his mentation has not improved or worsened. ) Assessment/Plan Assessment/Plan Assess & Plan/Chief Complaint Assessment: Chemotherapy induced myopathy Debility and weakness - increasing, failed rehab Prostate cancer with widespread metastasis Decreased appetite Insulin dependent type 2 diabetes HTN - although he has been hypotensive while on rehab floor HLD Plan: End of life care. Will have hospital social worker team on board to assist with hospice. Supportive care DNR status Clinical Quality Measures Admission Status Admission Dx Assessment: Chemotherapy induced myopathy Debility and weakness - increasing, failed rehab Prostate cancer with widespread metastasis Decreased appetite Insulin dependent type 2 diabetes HTN - although he has been hypotensive while on rehab floor HLD Plan: End of life care. Will have hospital social worker team on board to assist with hospice. Monitor labs Supportive care DNR status KENZIE CHAWLA DO 01/01/22 0512: Subjective Subjective/Events-last exam Patient alert Very end stage appearing Updated family who appear to be in denial SW consult for options Supervisory-Addendum Brief Verification & Attestation Participated in pt care: history, MDM, physical Personally performed: exam, history, MDM, supervision of care Care discussed with: Medical Student Procedures: n/a Results interpretation: Verified all documentation Verification and Attestation of Medical Student E/M Service A medical student performed and documented this service in my presence. I reviewed and verified all information documented by the medical student and made modifications to such information, when appropriate. I personally performed the physical exam and medical decision making. Kenzie Chawla, Jan 01, 2022,05:12 SHIMA LITTLE Dec 31, 2021 11:10 KENZIE CHAWLA DO Jan 01, 2022 05:12
[2021-12-31] MEDS: morphine INJ 4 MG/ML 1 ML (VIAL/SYRINGE) IV PRN (16:48)
[2021-12-31] MEDS: MENTHOL/ZINC OXIDE (CALMOSEPTINE) 113 GM TUBE TOP SCH (19:59)
[2022-01-01] MEDS: morphine INJ 4 MG/ML 1 ML (VIAL/SYRINGE) IV PRN ×2 (02:55→07:10)
[2022-01-01] MEDS: MENTHOL/ZINC OXIDE (CALMOSEPTINE) 113 GM TUBE TOP SCH ×2 (08:30→20:06)
--- NOTE | 2022-01-01 10:45 | Progress Note ---
SHIMA LITTLE 01/01/22 1045: Subjective Date Seen by a Provider: Jan 01, 2022 Time Seen by a Provider: 09:30 Subjective/Events-last exam Pt resting with family at bedside. Daughter said he had a restless night requiring adjusted doses of pain meds. His pain is well controlled now. He is drowsy and only had 2.5 ensures yesterday. He had one BM this am. Anderson cath in place. No other complaints at this time. Review of Systems General: No Chills; Fatigue, Appetite (decreased) HEENT: No Head Aches, No Visual Changes Pulmonary: No Dyspnea, No Cough Cardiovascular: No: Chest Pain, Palpitations Gastrointestinal: No: Nausea, Vomiting, Abdominal Pain, Diarrhea, Constipation, Melena Genitourinary: No Retention Musculoskeletal: arm pain (right arm. better with rest) Neurological: Weakness (generalized ), Confusion Objective Exam Last Set of Vital Signs Vital Signs Date Time Temp Pulse Resp B/P (MAP) Pulse Ox O2 Delivery O2 Flow Rate FiO2 01/01/22 08:00 Nasal Cannula 2.00 Capillary Refill : I&O Intake and Output 01/01/22 00:00 Intake Total 1030 ml Output Total 850 ml Balance 180 ml Intake Oral 1030 ml Output Urine Total 850 ml # Bowel Movements 2 General: Other (Chronically ill appearing. Confused. Declining ) HEENT: Atraumatic Neck: Supple, No Thyromegaly Lungs: Other (decreased breath sounds. ) Heart: Regular Rate, Normal S1, Normal S2, No Murmurs Abdomen: Soft, No Tenderness, Other (Hyperactive bowel sounds ) Extremities: No Clubbing, No Cyanosis, No Edema, Normal Pulses Skin: No Rashes Neuro: Other (Confused, but can answer yes or no questions. Mildly slurred speech. Generalized weakness, RUE > LUE. ) Psych/Mental Status: Other (Decreasing mentation ) Assessment/Plan Assessment/Plan Assess & Plan/Chief Complaint Assessment: Chemotherapy induced myopathy Debility and weakness - increasing, failed rehab Prostate cancer with widespread metastasis Decreased appetite - he only had 2.5 ensures yesterday. He drank some sips of water this morning. Insulin dependent type 2 diabetes HLD Plan: End of life care. vp marketing services and skin team on board to assist with hospice or NH placement Supportive care DNR status Clinical Quality Measures Admission Status Admission Dx Assessment: Chemotherapy induced myopathy Debility and weakness - increasing, failed rehab Prostate cancer with widespread metastasis Decreased appetite Insulin dependent type 2 diabetes HTN - although he has been hypotensive while on rehab floor HLD Plan: End of life care. Will have high school social science teacher team on board to assist with hospice. Monitor labs Supportive care DNR status KENZIE CHAWLA DO 01/01/22 2005: Subjective Subjective/Events-last exam Provided advice to family Patient alert but drowsy and pale Supervisory-Addendum Brief Verification & Attestation Participated in pt care: history, MDM, physical Personally performed: exam, history, MDM, supervision of care Care discussed with: Medical Student Procedures: n/a Results interpretation: Verified all documentation Verification and Attestation of Medical Student E/M Service A medical student performed and documented this service in my presence. I reviewed and verified all information documented by the medical student and made modifications to such information, when appropriate. I personally performed the physical exam and medical decision making. Kenzie Chawla, Jan 01, 2022,20:05 SHIMA LITTLE Jan 01, 2022 10:45 KENZIE CHAWLA DO Jan 01, 2022 20:05
[2022-01-02] MEDS: morphine INJ 4 MG/ML 1 ML (VIAL/SYRINGE) IV PRN ×3 (00:59→11:56)
[2022-01-02] MEDS ORDERED: MORP100S7 PO ×2 (05:53→11:17)
[2022-01-02] MEDS ORDERED: LORA2ORA PO ×2 (05:53→11:17)
--- NOTE | 2022-01-02 05:54 | Discharge Summary ---
Diagnosis/Chief Complaint Date of Admission Dec 30, 2021 at 10:12 Date of Discharge Discharge Date: Jan 02, 2022 Discharge Diagnosis Assessment: Chemotherapy induced myopathy Debility and weakness - increasing, failed rehab Prostate cancer with widespread metastasis Decreased appetite - he only had 2.5 ensures yesterday. He drank some sips of water this morning. Insulin dependent type 2 diabetes HLD Plan: End of life care. program services planner team on board to assist with hospice or NH placement Supportive care DNR status Reason Hospital Visit Discharge Summary Discharge Physical Examination Allergies: Coded Allergies: [id number] Reductase Inhibitor (Verified Allergy, Unknown, 12/13/21) Vitals & I&Os Vital Signs Date Time Temp Pulse Resp B/P (MAP) Pulse Ox O2 Delivery O2 Flow Rate FiO2 01/02/22 12:15 Nasal Cannula 01/02/22 10:00 2.00 General Appearance: Other (comatose) Hospital Course Was the Problem List Reviewed?: Yes Pt resting with family at bedside. His oxygen was removed last night. His pain is well controlled at this time. Family reports he is more sleepy than usual and drank less ensures today than yesterday. SW spoke with family and he will be dismissed to [facility] with [facility] hospice in place. Family is very appreciative of his care. Hospital Course: Mr. Arnol Paige, 86 YO male with hx of insulin-dependent type 2 diabetes, metastatic prostate cancer, and hypertension presented to ED on 12/27 due to weakness. He was found to have a UTI and was admitted for IV abx and PT/OT. He was moved to rehab floor, on 12/29, for PT secondary to chemotherapy induced myopathy. However, due to his significant weakness, increasing confusion, and hypotension he was moved back to the floor for end of life care. Family were agreeable. During his stay on the floor he became increasingly drowsy with decreased eating and drinking. His media monitor and oxygen were removed. We supported him while developing a plan for hospice care. He is going to [facility] today with hospice. SHIMA LITTLE Discharge Home Medications: Active Scripts Active Lorazepam Intensol (Lorazepam) 2 Mg/Ml Oral.conc 1 Mg PO Q2H PRN Morphine Conc. 20mg/ml (Morphine Sulfate) 100 Mg/5 Ml (20 Mg/Ml) Solution 10 Mg PO Q2H PRN Instructions to patient/family Please see electronic discharge instructions given to patient. FELTON WELLS DO Jan 02, 2022 05:54
[2022-01-02] MEDS: MENTHOL/ZINC OXIDE (CALMOSEPTINE) 113 GM TUBE TOP SCH (07:37)
[2022-01-02] MEDS: SCOPOLAMINE 1.5 MG (TRANSDERM-SCOP) PATCH TOP SCH (10:19)
[2022-01-02] MEDS ORDERED: SCOPOLAMINE PATCH REMOVAL TP SCH (10:29)
--- NOTE | 2022-01-02 12:56 | Progress Note ---
SHIMA LITTLE 01/02/22 1256: Progress Note Pt resting with family at bedside. His oxygen was removed last night. His pain is well controlled at this time. Family reports he is more sleepy than usual and drank less ensures today than yesterday. SW spoke with family and he will be dismissed to [facility] with [facility] in place. Family is very appreciative of his care. Hospital Course: Mr. Arnol Paige, 86 YO male with hx of insulin-dependent type 2 diabetes, metastatic prostate cancer, and hypertension presented to ED on 12/27 due to weakness. He was found to have a UTI and was admitted for IV abx and PT/OT. He was moved to rehab floor, on 12/29, for PT secondary to chemotherapy induced myopathy. However, due to his significant weakness, increasing confusion, and hypotension he was moved back to the floor for end of life care. Family were agreeable. During his stay on the floor he became increasingly drowsy with decreased eating and drinking. His monitoring engineer and oxygen were removed. We supported him while developing a plan for hospice care. [facility] with hosp[facility]. KENZIE WELLS DO 01/03/22 0541: Supervisory-Addendum Brief Verification & Attestation Participated in pt care: history, MDM, physical Personally performed: exam, history, MDM, supervision of care Care discussed with: Medical Student Procedures: n/a Results interpretation: Verified all documentation Verification and Attestation of Medical Student E/M Service A medical student performed and documented this service in my presence. I reviewed and verified all information documented by the medical student and made modifications to such information, when appropriate. I personally performed the physical exam and medical decision making. Kenzie Wells Jan 03, 2022,05:41 SHIMA LITTLE Jan 02, 2022 12:56 KENZIE WELLS DO Jan 03, 2022 05:41
== END 2022-01-02 12:15 | disposition hospice, inpatient (51) | DRG 951 ==
LOC: 4TH 10:12
PROVIDERS: ADMIT Internal Medicine; ATTEND Internal Medicine
DX: Z51.5 Encounter for palliative care (principal); G72.0 Drug-induced myopathy; C79.9 Secondary malignant neoplasm of unspecified site; R41.0 Disorientation, unspecified; I95.9 Hypotension, unspecified; C61 Malignant neoplasm of prostate; E11.9 Type 2 diabetes mellitus without complications; Z66 Do not resuscitate; I10 Essential (primary) hypertension; E78.00 Pure hypercholesterolemia, unspecified; T45.1X5D Adverse effect of antineoplastic and immunosuppressive drugs, subsequent encounter